=== PATIENT | female | born 1985 | race Caucasian/White ===

== ENCOUNTER 2024-03-11 17:02 | Inpatient (IN) ==
--- NOTE | 2024-03-11 18:33 | Emergency Department Note ---
Impression & Plan Chest pain, Hypertension, Sprain and strain of wrist ED Provider Note NAME: LATRICE WILLS AGE: 38 SEX: F : 1985 ARRIVES VIA: Ambulance INFORMANT: Patient, ED PROVIDER(S): Polo Diaz MD CHIEF COMPLAINT: Right wrist pain, shortness of breath HPI: This is a 38-year-old female presenting for right wrist pain. Patient notes that she tried to "karate chop a tree "4 days ago and has right wrist pain at this time. She notes she has untreated hep C at this time and has had generalized feelings of unwell for the past 2 weeks but she notes she felt she had may be the flu. She no shortness of breath, cough. She does smoke about 1 pack of cigarettes per day. She notes no nausea, vomiting. She notes she felt dizzy and passed out today while standing but did not actually pass out. She called 911 due to feeling unwell. No active chest pain at this time. ROS: See above HPI for pertinent positives & negatives. A total of 10 systems reviewed and were otherwise negative. VITALS: See Below PHYSICAL EXAMINATION: General: resting comfortably in no acute distress Head: Normocephalic and atraumatic Eyes: Normal inspection, extraocular muscles intact Ear, nose, throat: Normal external exam Neck: Normal range of motion Respiratory: Mild expiratory wheeze Cardiovascular: Regular rate/rhythm, no murmur GI: soft, nontender, no guarding or rebound Extremities: nontender, moves all extremities Neuro: The patient awake and alert, appropriately conversive, no focal deficits, symmetric faces Skin: Warm, dry, and intact MEDICAL DECISION MAKING: This is 38 female sent for right wrist pain/shortness of breath. Patient has 2 prior complaints including right wrist pain from trauma as well as shortness of breath she is wheezing currently at this time. Will do screening blood work, EKG, chest x-ray, troponin, right wrist x-ray. -ECG independently interpreted by me with normal sinus rhythm, rate of 86, normal axis, normal AR, normal QRS, prolonged QTc, no ST segment elevations consistent with STEMI criteria -Chest Xray independently interpreted by me showing no pneumothorax, focal opacity, or pleural effusions. -Wrist x-ray as independent interpreted by me showing no osseous fracture or dislocation -Patient's blood work is reviewed showing no leukocytosis, anemia of 11.5 -No electrolyte disturbances, there is transaminitis. Troponin is elevated at over 18. Patient viral panel negative at this time. -Patient mentioned that she has had chest pain and had some pain here. With his troponin elevation, will admit for further ACS rule out. Low concern for PE clinically without hypoxia, or pleuritic chest pain. Differential diagnosis: Wrist fracture, COPD, ACS, PE ER treatment provided: See below Diagnostics interpreted by me: ECG: EKG as above Cardiac Monitoring: An order was placed for continuous cardiac monitoring. The monitor shows a rate of 92 with sinus rhythm rhythm. Laboratory studies: As stated above and show below. Imaging studies: See below. Past Med/Surg History Problem List (Updated 03/12/24 @ 16:17 by Polo Diaz MD) Sprain and strain of wrist (Acute) Hypertension (Acute) Chest pain (Acute) Medical History Asthma GERD (gastroesophageal reflux disease) Hepatitis C Hypothyroidism Family History Other Family history non-contributory Social History Smoking Status: Current every day smoker Tobacco Type: Cigarettes Hx Alcohol Use: Yes Alcohol type: beer Hx Substance Use: Yes Last Used Substance: Days (ago) Preferred Language: Setswana Communication Ability: Effective Career And Guidance Counselor Required: No Beliefs That Will Affect Care: None Current Living Situation: Significant Other Current Living Situation Comment: lives with boyfriend and his family Other Information That Helps Us Care for You: No Feels Safe at Home: Yes Safety Concerns: Feels Safe At This Time Assistive Devices: Glasses Allergies Allergies Allergy/AdvReac Type Severity Reaction Status Date / Time sulfamethoxazole Allergy Mild YEAST Verified 03/11/24 22:08 [From Bactrim] INFECTION/ITCHING trimethoprim [From Bactrim] Allergy Mild YEAST Verified 03/11/24 22:08 INFECTION/ITCHING Home Meds Home Medications Medication Instructions Recorded Confirmed famotidine 20 mg tablet 20 mg PO DAILY 03/11/24 03/11/24 fluticasone propionate 230 2 puff inhalation BID 03/11/24 03/11/24 mcg-salmeterol 21 mcg/actuation HFA inhaler (Advair HFA) fluticasone propionate 50 2 spray intranasal DAILY 03/11/24 03/11/24 mcg/actuation nasal spray,suspension (Flonase Allergy Relief) iron,carbonyl 65 mg-vitamin C 125 1 tab PO BID 03/11/24 03/11/24 mg tablet,delayed release (Vitron-C) levothyroxine 100 mcg tablet 100 mcg PO QAM 03/11/24 03/11/24 montelukast 10 mg tablet 10 mg PO HS 03/11/24 03/11/24 omeprazole 40 mg capsule,delayed 40 mg PO QAM 03/11/24 03/11/24 release sumatriptan succinate 100 mg tablet 0 mg PO .COMPLEX 03/11/24 03/11/24 Results & Data (ED) Vital Signs Vital Signs - 24 hr 03/11/24 17:09 03/11/24 17:44 03/11/24 18:31 Temperature 36.8 C Temperature Source Temporal Artery Scan Pulse Rate 104 H 106 H Pulse Rate [Right Apical] 101 H Respiratory Rate 15 19 Respiratory Effort / Characteristics Non-Labored Spontaneous Respiratory Depth Normal Normal Respiratory Pattern Regular Blood Pressure 175/97 H Blood Pressure [Right Arm] 167/96 H Blood Pressure Mean 123 Blood Pressure Mean [Right Arm] 119 Blood Pressure Position [Right Arm] Semi-fowlers Pulse Oximetry 98 99 Oxygen Delivery Method Room Air Sepsis Recent Fever Within 48 Hours No Sepsis New/Unexplained Change in Mental Status N/A Sepsis Action Taken by Nursing No Action Required 03/11/24 20:00 03/11/24 20:53 03/11/24 21:31 Temperature Temperature Source Pulse Rate 97 H Pulse Rate [Right Apical] 100 H 88 Respiratory Rate 17 20 Respiratory Effort / Characteristics Respiratory Depth Respiratory Pattern Blood Pressure Blood Pressure [Right Arm] 133/110 H Blood Pressure Mean Blood Pressure Mean [Right Arm] 117 Blood Pressure Position [Right Arm] Pulse Oximetry 97 98 Oxygen Delivery Method Room Air Room Air Sepsis Recent Fever Within 48 Hours Sepsis New/Unexplained Change in Mental Status Sepsis Action Taken by Nursing Laboratory Data 03/12/24 05:53 03/12/24 05:53 Lab Results 03/11/24 03/11/24 Range/Units 18:40 19:10 WBC 5.83 (4.8-10.8) K/ul RBC 3.38 L (4.20-5.40) M/uL Hgb 11.5 L (12.0-16.0) g/dl Hct 33.8 L (37.0-47.0) % MCV 100.0 (80.0-100.0) fL MCH 34.0 (25.0-34.0) pg MCHC 34.0 (32.0-36.0) g/dL RDW Std Deviation 55.7 H (36.4-46.3) fL RDW Coeff of Fernando 15.2 H (11.5-14.5) % Plt Count 80 L (130-400) K/uL MPV 12.1 (9.4-12.4) fL Immature Gran % (Auto) 0.3 % Neut % (Auto) 60.3 % Lymph % (Auto) 28.8 % [place] % (Auto) 8.2 % Eos % (Auto) 1.7 % Baso % (Auto) 0.7 % Neut # (Auto) 3.51 (1.40-6.50) K/uL Lymph # (Auto) 1.68 (1.20-3.40) K/uL [place] # (Auto) 0.48 (0.11-0.59) K/uL Eos # (Auto) 0.10 (0.00-0.50) K/uL Baso # (Auto) 0.04 (0.00-0.20) K/uL Immature Gran # (Auto) 0.02 (0.01-0.20) K/uL Platelet Estimate Decreased L (Normal) Sodium 142 (136-145) mmol/L Potassium 3.4 L (3.5-5.1) mmol/L Chloride 107 (98-107) mmol/L Carbon Dioxide 28 (21-32) mmol/L Anion Gap 7 (3-11) BUN 8 (6-23) mg/dl Creatinine 0.79 (0.6-1.2) mg/dl Est Cr Clr Drug Dosing 109.5 ml/min Est GFR ( Amer) 110.8 ml/min Est GFR (Non-Af Amer) 95.6 ml/min BUN/Creatinine Ratio 10.1 (10-20) Glucose 87 (70-99(Fasting)) mg/dl Calcium 9.1 (8.6-10.3) mg/dl Total Bilirubin 2.1 H (0.2-1.0) mg/dl AST 233 H (13-39) U/L ALT 84 H (7-52) U/L Alkaline Phosphatase 127 H (34-104) U/L Troponin I High Sens 18.1 H (0-14) pg/ml Total Protein 7.4 (6.0-8.3) gm/dl Albumin 3.6 (3.4-5.0) gm/dl Globulin 3.8 (2.5-4.0) gm/dl Albumin/Globulin Ratio 0.9 (0.9-2) Adenovirus (PCR) Not Detected (NotDetected) B. pertussis DNA (PCR) Not Detected (NotDetected) B.parapertussis DNA PCR Not Detected (NotDetected) C. pneumoniae DNA (PCR) Not Detected (NotDetected) Coronavirus OC43 (PCR) Not Detected (NotDetected) Coronavirus HKU1 (PCR) Not Detected (NotDetected) Coronavirus 229E (PCR) Not Detected (NotDetected) SARS-CoV-2 (PCR) Not Detected (NotDetected) Coronavirus NL63 (PCR) Not Detected (NotDetected) Human Metapneumovir PCR Not Detected (NotDetected) Influenza Type A (PCR) Not Detected (NotDetected) Influenza Type B (PCR) Not Detected (NotDetected) M. pneumoniae (PCR) Not Detected (NotDetected) Parainfluenza 1 (PCR) Not Detected (NotDetected) Parainfluenza 2 (PCR) Not Detected (NotDetected) Parainfluenza 3 (PCR) Not Detected (NotDetected) Parainfluenza 4 (PCR) Not Detected (NotDetected) RSV (PCR) Not Detected (NotDetected) Entero/Rhino (PCR) Not Detected (NotDetected) Administered Medications Aspirin (Aspirin 81 Mg Ectab) 81 mg PO [facility] Stop: 04/11/24 09:14 Last Admin: 03/12/24 10:47 Dose: 81 mg Documented By: TMP Thiamine HCl 100 mg/ Syringe 10 mls @ 2 mls/min IV [facility] Stop: 04/11/24 08:59 Last Admin: 03/12/24 08:07 Dose: 2 mls/min Documented By: TMP Folic Acid 1 mg/ Syringe 10 mls @ 5 mls/min IV QAM MARCELA Stop: 04/11/24 08:59 Last Admin: 03/12/24 08:07 Dose: 5 mls/min Documented By: TMP Losartan Potassium (Losartan Potassium 25 Mg Tab) 25 mg PO QAM MARCELA Stop: 04/11/24 11:29 Last Admin: 03/12/24 12:06 Dose: 25 mg Documented By: TMP Nitroglycerin (Nitroglycerin Sl 0.4 Mg/Tab Tab) 0.4 mg SL Q5M PRN PRN Reason: Chest Pain Stop: 04/10/24 23:13 Last Admin: 03/12/24 08:44 Dose: 0.4 mg Documented By: Admin: 03/12/24 08:06 Dose: 0.4 mg Documented By: TMP Discontinued Medications Aspirin (Aspirin Chew 324 Mg) 324 mg PO NOW STA Stop: 03/11/24 20:45 Last Admin: 03/11/24 20:52 Dose: 324 mg Documented By: SKM Gabapentin (Gabapentin 600 Mg Tab) 1,200 mg PO NOW ONE Stop: 03/11/24 23:15 Last Admin: 03/12/24 00:03 Dose: 1,200 mg Documented By: MG Gabapentin (Gabapentin 600 Mg Tab) 600 mg PO Q6H MARCELA Stop: 03/12/24 12:01 Last Admin: 03/12/24 11:55 Dose: 600 mg Documented By: Admin: 03/12/24 05:13 Dose: 600 mg Documented By: MG Sodium Chloride (Nss) 500 mls @ 50 mls/hr IV .Q10H MARCELA Stop: 03/12/24 11:29 Last Infusion: 03/12/24 12:34 Dose: Infused Documented By: Admin: 03/12/24 02:17 Dose: 50 mls/hr Documented By: MG Multivitamins 10 ml/ Thiamine HCl 100 mg/ Folic Acid 1 mg/Sodium Chloride 1,011.2 mls @ 500 mls/hr IV .Q2H2M ONE Stop: 03/12/24 01:31 Last Infusion: 03/12/24 02:25 Dose: Infused Documented By: Admin: 03/12/24 00:04 Dose: 500 mls/hr Documented By: MG Magnesium Sulfate/Dextrose (Magnesium Sulfate / D5w) 1 gm in 100 mls @ 50 mls/hr IV Q2H MARCELA Stop: 03/12/24 12:44 Last Infusion: 03/12/24 13:54 Dose: Infused Documented By: Admin: 03/12/24 11:54 Dose: 50 mls/hr Documented By: Infusion: 03/12/24 11:10 Dose: Infused Documented By: Admin: 03/12/24 09:10 Dose: 50 mls/hr Documented By: MABEL Ioversol (Optiray 320 125ml) 125 ml IV ONCE ONE Stop: 03/12/24 01:36 Last Admin: 03/12/24 01:35 Dose: 118 ml Documented By: MANOJ Oxycodone HCl (Oxycodone Hcl Ir 5 Mg Tab (Immediate Release)) 5 mg PO NOW STA Stop: 03/11/24 23:20 Last Admin: 03/12/24 00:03 Dose: 5 mg Documented By: MG Potassium Chloride (Potassium Chloride Crtab 20 Meq Tabcr) 20 meq PO NOW STA Stop: 03/11/24 22:21 Last Admin: 03/12/24 00:02 Dose: 20 meq Documented By: MG Potassium Chloride (Potassium Chloride Crtab 20 Meq Tabcr) 40 meq PO ONE ONE Stop: 03/12/24 08:40 Last Admin: 03/12/24 09:10 Dose: 40 meq Documented By: MABEL Imaging Data Radiologist's Impression: Wrist X-Ray 03/11/24 18:17 XR wrist RT min 3V routine CLINICAL HISTORY: Tried to karate chop a tree, wrist ecchymosis/swelling. COMPARISON: None FINDINGS: Alignment of the right wrist is anatomic. There is no acute fracture. Carpal bones are intact. Distal right radius and ulna are intact. There is mild wrist soft tissue swelling. IMPRESSION: 1. No fracture or dislocation within the right wrist. 2. Right wrist soft tissue swelling. ACT 112: Negative or not required by law. Electronically signed by: Santana Lara M.D. 03/11/2024 6:46 PM Chest X-Ray 03/11/24 18:18 XR chest 1V portable CLINICAL HISTORY: Shortness of breath. COMPARISON STUDY: Chest radiograph July 06, 2021. FINDINGS: Lung volumes are normal. Lungs are clear. There is no pneumothorax or pleural effusion. Cardiac size is normal. Mediastinal contours are normal. There is no evidence for pulmonary edema. Several old right-sided rib fractures are incidentally noted. IMPRESSION: No acute cardiopulmonary findings. ACT 112: Negative or not required by law. Electronically signed by: Santana Lara M.D. 03/11/2024 6:46 PM Discharge Plan Visit Data Chief Complaint: Illness ED Provider: Polo Diaz Discharge Problem: Chest pain, Hypertension, Sprain and strain of wrist Patient Disposition: Admitted As Inpatient Discharge Instructions Interventions: ED Discharge Assessment Last Done: 03/11/24 22:28
--- NOTE | 2024-03-11 18:47 | XRay Report ---
XR wrist RT min 3V routine CLINICAL HISTORY: Tried to karate chop a tree, wrist ecchymosis/swelling. COMPARISON: None FINDINGS: Alignment of the right wrist is anatomic. There is no acute fracture. Carpal bones are int act. Distal right radius and ulna are intact. There is mild wrist soft tissue swelling. IMPRESSION: 1. No fracture or dislocation within the right wrist. 2. Right wrist soft tissue swelling. ACT 112: Negative or not required by law. Electronically signed by: Santana Lara M.D. 03/11/2024 6:46 PM
--- NOTE | 2024-03-11 18:48 | XRay Report ---
XR chest 1V portable CLINICAL HISTORY: Shortness of breath. COMPARISON STUDY: Chest radiograph July 06, 2021. FINDINGS: Lung volumes are normal. Lungs are clear. There is no pneumothorax or pleural effusion. Car diac size is normal. Mediastinal contours are normal. There is no evidence for pulmonary edema. Sever al old right-sided rib fractures are incidentally noted. IMPRESSION: No acute cardiopulmonary findings. ACT 112: Negative or not required by law. Electronically signed by: Santana Lara M.D. 03/11/2024 6:46 PM
[2024-03-11 19:15] LABS: Albumin Globulin Ratio 0.9 (0.9-2); Albumin Level 3.6 gm/dl (3.4-5.0); BUN Creatinine Ratio 10.1 (10-20); Bilirubin,Total 2.1 mg/dl (0.2-1.0); Calcium 9.1 mg/dl (8.6-10.3); Creatinine Clr Calc Pharmacy 109.5 ml/min; Est GFR (African American) 110.8 ml/min; Est GFR (Non-African American) 95.6 ml/min; Globulin 3.8 gm/dl (2.5-4.0); Potassium 3.4 mmol/L (3.5-5.1); Total Protein 7.4 gm/dl (6.0-8.3)
[2024-03-11 19:21] LABS: Troponin I High Sensitivity 18.1 pg/ml (0-14)
[2024-03-11 20:26] LABS: Adenovirus PCR Not Detected (NotDetected); Bordetella parapertussis PCR Not Detected (NotDetected); Bordetella pertussis PCR Not Detected (NotDetected); Chlamydia pneumoniae PCR Not Detected (NotDetected); Coronavirus 229E PCR Not Detected (NotDetected); Coronavirus CoV-2 (COVID19)PCR Not Detected (NotDetected); Coronavirus HKU1 PCR Not Detected (NotDetected); Coronavirus NL63 PCR Not Detected (NotDetected); Coronavirus OC43PCR Not Detected (NotDetected); Human Metapneumovirus PCR Not Detected (NotDetected); Influenza A PCR Not Detected (NotDetected); Influenza B PCR Not Detected (NotDetected); Mycoplasma pneumoniae PCR Not Detected (NotDetected); Parainfluenza Virus 1 PCR Not Detected (NotDetected); Parainfluenza Virus 2 PCR Not Detected (NotDetected); Parainfluenza Virus 3 PCR Not Detected (NotDetected); Parainfluenza Virus 4 PCR Not Detected (NotDetected); Respiratory Syncytial VirusPCR Not Detected (NotDetected); Rhinovirus/Enterovirus PCR Not Detected (NotDetected)
[2024-03-11] MEDS: ASPIRIN CHEW 324 MG PO STA (20:52)
[2024-03-11 21:04] LABS: Basophils # (auto) 0.04 K/uL (0.00-0.20); Basophils % (auto) 0.7 %; Eosinophils % (auto) 1.7 %; Hematocrit (blood only) 33.8 % (37.0-47.0); Hemoglobin 11.5 g/dl (12.0-16.0); Immature Granulocytes # (auto) 0.02 K/uL (0.01-0.20); Immature Granulocytes % (auto) 0.3 %; Lymphocytes # (auto) 1.68 K/uL (1.20-3.40); Lymphocytes % (auto) 28.8 %; Mean Platelet Volume 12.1 fL (9.4-12.4); Monocytes # (auto) 0.48 K/uL (0.11-0.59); Monocytes % (auto) 8.2 %; Neutrophils # (auto) 3.51 K/uL (1.40-6.50); Neutrophils % (auto) 60.3 %; Platelet Count 80 K/uL (130-400); Platelet Estimate Decreased (Normal); RDW Coefficient of Variation 15.2 % (11.5-14.5); RDW Standard Deviation 55.7 fL (36.4-46.3); Red Blood Count 3.38 M/uL (4.20-5.40); White Blood Count 5.83 K/ul (4.8-10.8)
[2024-03-11] MEDS ORDERED: LORazepam 1 MG in SYRINGE 0.5 ML IV PRN (23:14)
[2024-03-11] MEDS ORDERED: LORazepam 2 MG in SYRINGE 1 ML IV PRN (23:14)
[2024-03-11] MEDS ORDERED: Ativan IV Alcohol Withdrawal--Active Protocol IV PRN (23:14)
[2024-03-11] MEDS ORDERED: ONDANSETRON INJ 2 MG/ML 2 ML VIAL IV PRN (23:14)
[2024-03-11] MEDS ORDERED: LORazepam 3 MG in SYRINGE 1.5 ML IV PRN (23:14)
[2024-03-11] MEDS ORDERED: GABAPENTIN 1200MG ALCOHOL WITHDRAWAL LOAD PO STA (23:14)
--- NOTE | 2024-03-11 23:44 | History & Physical Report ---
Date of Service March 11, 2024 Assessment & Plan (1) Chest pain: Plan: 38-year-old female with past medical history significant for hypothyroidism, moderate persistent asthma, heart murmur, chronic hepatitis C, mouth,edentulous, GERD, recurrent headache, migraines, ongoing tobacco use and alcohol use, history of seizure presents with chest pains and shortness of breath. Patient states since last Sunday is having constant chest pain left-sided chest moderate in severity. No radiation. Also feeling short of breath. Patient's also had some right wrist pain after trying to chop a tree 4 days ago. Also having a lot of nausea and vomiting. Some dizziness. Vision is okay. No runny nose or sore throat. No cough. No abdominal pain. Normal bowel and bladder movements. Hemodynamics are okay. Chest pain EKG okay Initial troponin 18 and repeat is 21 Will follow serial cardiac enzymes and echo Consult cardiology in a.m. for further recommendations Shortness of breath Chest x-ray okay No obvious wheezing Saturating okay on room air d dimer elevated CTA chest No PE. History of hepatitis C Following with hepatology Elevated LFTs Somewhat chronic Outpatient labs in [facility] on 11/15/2022 shows AST 271, ALT 147, alkaline phos 91, total bilirubin 1.2 Possibly from hepatitis C and ongoing alcoholism Will follow repeat labs Will follow liver ultrasound Alcoholism Banana bag Alcohol withdrawal protocol with gabapentin and Ativan as needed IV thiamine IV folic acid Close monitor Tobacco abuse Needs counseling History of asthma Continue home inhalers Hypothyroidism On Synthroid Follow TSH GERD Omeprazole Migraines Pain control Thrombocytopenia Mostly from liver disease Seems somewhat chronic Needs follow-up DVT SCDs Disposition Med/telemetry Full code Admission and Anticipated Discharge Date Admission Date: March 11, 2024 History of Present Illness Chief Complaint: Chest pain and shortness of breath Primary Care Provider: GOLDIE Bobo 38-year-old female with past medical history significant for hypothyroidism, moderate persistent asthma, heart murmur, chronic hepatitis C, mouth,edentulous, GERD, recurrent headache, migraines, ongoing tobacco use and alcohol use, history of seizure presents with chest pains and shortness of breath. Patient states since last Sunday is having constant chest pain left-sided chest moderate in severity. No radiation. Also feeling short of breath. Patient's also had some right wrist pain after trying to chop a tree 4 days ago. Also having a lot of nausea and vomiting. Some dizziness. Vision is okay. No runny nose or sore throat. No cough. No abdominal pain. Normal bowel and bladder movements. Hemodynamics are okay. Past medical history. As mentioned above. Past surgical history. . Right shoulder arthroscopy. Social history. Smokes 1 pack a day for last 15 years. Alcohol drinks 6-12 beers a day. Smokes marijuana. 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 Family history. Mother had COPD. Diabetes. Hypertension. Paternal grandmother had cancer. Allergies Allergy/AdvReac Type Severity Reaction Status Date / Time sulfamethoxazole Allergy Mild YEAST Verified 03/11/24 22:08 [From Bactrim] INFECTION/ITCHING trimethoprim [From Bactrim] Allergy Mild YEAST Verified 03/11/24 22:08 INFECTION/ITCHING Home Medications Medication Instructions Recorded Confirmed Type famotidine 20 mg tablet 20 mg PO DAILY 03/11/24 03/11/24 History fluticasone propionate 230 2 puff inhalation BID 03/11/24 03/11/24 History mcg-salmeterol 21 mcg/actuation HFA inhaler (Advair HFA) fluticasone propionate 50 2 spray intranasal DAILY 03/11/24 03/11/24 History mcg/actuation nasal spray,suspension (Flonase Allergy Relief) iron,carbonyl 65 mg-vitamin C 125 1 tab PO BID 03/11/24 03/11/24 History mg tablet,delayed release (Vitron-C) levothyroxine 100 mcg tablet 100 mcg PO QAM 03/11/24 03/11/24 History montelukast 10 mg tablet 10 mg PO HS 03/11/24 03/11/24 History omeprazole 40 mg capsule,delayed 40 mg PO QAM 03/11/24 03/11/24 History release sumatriptan succinate 100 mg tablet 0 mg PO .COMPLEX 03/11/24 03/11/24 History Past Med/Surg History Problem List (Updated 03/11/24 @ 23:49 by Anastacio Pagan MD) Chest pain Medical History Asthma GERD (gastroesophageal reflux disease) Hepatitis C Hypothyroidism Family History Other Family history non-contributory Social History Smoking Status: Current every day smoker Tobacco Type: Cigarettes Hx Alcohol Use: Yes Alcohol type: beer Hx Substance Use: Yes Last Used Substance: Days (ago) Preferred Language: Swedish Communication Ability: Effective Senior Microstrategy Developer Required: No Beliefs That Will Affect Care: None Current Living Situation: Significant Other Current Living Situation Comment: lives with boyfriend and his family Other Information That Helps Us Care for You: No Feels Safe at Home: Yes Safety Concerns: Feels Safe At This Time Assistive Devices: None Review of Systems Review of Systems: All systems reviewed & are unremarkable except as noted in HPI & below Physical Exam Physical Exam: General- Not in distress Head- atraumatic Eyes- PERRL. ENT- no dentition seen Neck- supple, no JVD. Lungs- clear to auscultation no wheezing or crackles. Heart- regular rhythm; no murmur, no gallop. Abdomen- normal bowel sounds, soft, nontender, no distension Extremities- lower ext edema present Neuro- alert, oriented PERRL, no facial palsy; no dysarthria; moves extremities Results & Data Results & Data Vital Signs (Past 12 Hours) Vital Signs Temp Pulse Pulse Resp BP BP Pulse Ox 03/11/24 22:00 83 21 157/94 H 97 03/11/24 21:31 97 H 03/11/24 20:53 88 20 133/110 H 98 03/11/24 20:00 100 H 17 97 03/11/24 18:31 101 H 19 167/96 H 99 03/11/24 17:44 106 H 03/11/24 17:09 36.8 C 104 H 15 175/97 H 98 O2 Del Method 03/11/24 22:00 Room Air 03/11/24 21:31 03/11/24 20:53 Room Air 03/11/24 20:00 Room Air 03/11/24 18:31 Room Air 03/11/24 17:44 03/11/24 17:09 Diagnostic Findings Laboratory Results WBC 5.83 K/ul (4.8-10.8) 03/11/24 18:40 RBC 3.38 M/uL (4.20-5.40) L 03/11/24 18:40 Hgb 11.5 g/dl (12.0-16.0) L 03/11/24 18:40 Hct 33.8 % (37.0-47.0) L 03/11/24 18:40 MCV 100.0 fL (80.0-100.0) 03/11/24 18:40 MCH 34.0 pg (25.0-34.0) 03/11/24 18:40 MCHC 34.0 g/dL (32.0-36.0) 03/11/24 18:40 RDW Std Deviation 55.7 fL (36.4-46.3) H 03/11/24 18:40 RDW Coeff of Fernando 15.2 % (11.5-14.5) H 03/11/24 18:40 Plt Count 80 K/uL (130-400) L 03/11/24 18:40 MPV 12.1 fL (9.4-12.4) 03/11/24 18:40 Immature Gran % (Auto) 0.3 % 03/11/24 18:40 Neut % (Auto) 60.3 % 03/11/24 18:40 Lymph % (Auto) 28.8 % 03/11/24 18:40 Ashley % (Auto) 8.2 % 03/11/24 18:40 Eos % (Auto) 1.7 % 03/11/24 18:40 Baso % (Auto) 0.7 % 03/11/24 18:40 Neut # (Auto) 3.51 K/uL (1.40-6.50) 03/11/24 18:40 Lymph # (Auto) 1.68 K/uL (1.20-3.40) 03/11/24 18:40 Ashley # (Auto) 0.48 K/uL (0.11-0.59) 03/11/24 18:40 Eos # (Auto) 0.10 K/uL (0.00-0.50) 03/11/24 18:40 Baso # (Auto) 0.04 K/uL (0.00-0.20) 03/11/24 18:40 Immature Gran # (Auto) 0.02 K/uL (0.01-0.20) 03/11/24 18:40 Platelet Estimate Decreased (Normal) L 03/11/24 18:40 Sodium 142 mmol/L (136-145) 03/11/24 18:40 Potassium 3.4 mmol/L (3.5-5.1) L 03/11/24 18:40 Chloride 107 mmol/L (98-107) 03/11/24 18:40 Carbon Dioxide 28 mmol/L (21-32) 03/11/24 18:40 Anion Gap 7 (3-11) 03/11/24 18:40 BUN 8 mg/dl (6-23) 03/11/24 18:40 Creatinine 0.79 mg/dl (0.6-1.2) 03/11/24 18:40 Est Cr Clr Drug Dosing 109.5 ml/min 03/11/24 18:40 Est GFR ( Amer) 110.8 ml/min 03/11/24 18:40 Est GFR (Non-Af Amer) 95.6 ml/min 03/11/24 18:40 BUN/Creatinine Ratio 10.1 (10-20) 03/11/24 18:40 Glucose 87 mg/dl (70-99(Fasting)) 03/11/24 18:40 Calcium 9.1 mg/dl (8.6-10.3) 03/11/24 18:40 Total Bilirubin 2.1 mg/dl (0.2-1.0) H 03/11/24 18:40 AST 233 U/L (13-39) H 03/11/24 18:40 ALT 84 U/L (7-52) H 03/11/24 18:40 Alkaline Phosphatase 127 U/L (34-104) H 03/11/24 18:40 Troponin I High Sens 21.5 pg/ml (0-14) H 03/11/24 22:38 Total Protein 7.4 gm/dl (6.0-8.3) 03/11/24 18:40 Albumin 3.6 gm/dl (3.4-5.0) 03/11/24 18:40 Globulin 3.8 gm/dl (2.5-4.0) 03/11/24 18:40 Albumin/Globulin Ratio 0.9 (0.9-2) 03/11/24 18:40 Adenovirus (PCR) Not Detected (NotDetected) 03/11/24 19:10 B. pertussis DNA (PCR) Not Detected (NotDetected) 03/11/24 19:10 B.parapertussis DNA PCR Not Detected (NotDetected) 03/11/24 19:10 C. pneumoniae DNA (PCR) Not Detected (NotDetected) 03/11/24 19:10 Coronavirus OC43 (PCR) Not Detected (NotDetected) 03/11/24 19:10 Coronavirus HKU1 (PCR) Not Detected (NotDetected) 03/11/24 19:10 Coronavirus 229E (PCR) Not Detected (NotDetected) 03/11/24 19:10 SARS-CoV-2 (PCR) Not Detected (NotDetected) 03/11/24 19:10 Coronavirus NL63 (PCR) Not Detected (NotDetected) 03/11/24 19:10 Human Metapneumovir PCR Not Detected (NotDetected) 03/11/24 19:10 Influenza Type A (PCR) Not Detected (NotDetected) 03/11/24 19:10 Influenza Type B (PCR) Not Detected (NotDetected) 03/11/24 19:10 M. pneumoniae (PCR) Not Detected (NotDetected) 03/11/24 19:10 Parainfluenza 1 (PCR) Not Detected (NotDetected) 03/11/24 19:10 Parainfluenza 2 (PCR) Not Detected (NotDetected) 03/11/24 19:10 Parainfluenza 3 (PCR) Not Detected (NotDetected) 03/11/24 19:10 Parainfluenza 4 (PCR) Not Detected (NotDetected) 03/11/24 19:10 RSV (PCR) Not Detected (NotDetected) 03/11/24 19:10 Entero/Rhino (PCR) Not Detected (NotDetected) 03/11/24 19:10 Impressions Wrist X-Ray 03/11/24 18:17 XR wrist RT min 3V routine CLINICAL HISTORY: Tried to karate chop a tree, wrist ecchymosis/swelling. COMPARISON: None FINDINGS: Alignment of the right wrist is anatomic. There is no acute fracture. Carpal bones are intact. Distal right radius and ulna are intact. There is mild wrist soft tissue swelling. IMPRESSION: 1. No fracture or dislocation within the right wrist. 2. Right wrist soft tissue swelling. ACT 112: Negative or not required by law. Electronically signed by: Santana Lara M.D. 03/11/2024 6:46 PM Chest X-Ray 03/11/24 18:18 XR chest 1V portable CLINICAL HISTORY: Shortness of breath. COMPARISON STUDY: Chest radiograph July 06, 2021. FINDINGS: Lung volumes are normal. Lungs are clear. There is no pneumothorax or pleural effusion. Cardiac size is normal. Mediastinal contours are normal. There is no evidence for pulmonary edema. Several old right-sided rib fractures are incidentally noted. IMPRESSION: No acute cardiopulmonary findings. ACT 112: Negative or not required by law. Electronically signed by: Santana Lara M.D. 03/11/2024 6:46 PM ECG Additional Comments: ECG. Sinus rhythm with marked sinus arrhythmia at rate of 86. Possible left atrial enlargement. Nonspecific ST abnormality. QTc 493. Code Status & VTE Plan VTE Prophylaxis Plan VTE Prophylaxis will be ordered: Yes
[2024-03-11 23:53] LABS: D Dimer 1150 ug/L FEU (0-500)
[2024-03-12] MEDS: POTASSIUM CHLORIDE CRTAB 20 MEQ TABCR PO STA (00:02)
[2024-03-12] MEDS: oxyCODONE HCL IR 5 MG TAB (IMMEDIATE RELEASE) PO STA ×2 (00:03→22:56)
[2024-03-12] MEDS: GABAPENTIN 600 MG TAB PO ONE (00:03)
[2024-03-12] MEDS: MULTI-VITAMIN INFUSION 10 ML, THIAMINE HCL 100 MG, FOLIC ACID 1 MG in SODIUM CHLORIDE 0... IV ONE (00:04)
[2024-03-12] MEDS: OPTIRAY 320 125ml IV ONE (01:35)
[2024-03-12] MEDS: SODIUM CHLORIDE 0.9% 500 ML IV SCH (02:17)
--- NOTE | 2024-03-12 03:06 | CT Scan Report ---
Exam(s): CTA CHEST IV Amt: 118 ML OPTIRAY 320 EXAM: CT Angiography Chest With Intravenous Contrast CLINICAL HISTORY: Reason for exam: PE. TECHNIQUE: Axial computed tomographic angiography images of the chest with intravenous contrast. CTDI is 19.97 mGy and DLP is 679.28 mGy-cm. Automated exposure control was utilized for the study. A dose lowering technique was utilized adhering to the principles of ALARA. MIP reconstructed images were created and reviewed. COMPARISON: No relevant prior studies available. FINDINGS: Pulmonary arteries: No evidence of pulmonary embolism. Aorta: No acute findings. No thoracic aortic aneurysm. Lungs: Unremarkable. No mass. No consolidation. Pleural space: Unremarkable. No significant effusion. No pneumothorax. Heart: Unremarkable. No cardiomegaly. No significant pericardial effusion. No evidence of RV dysfunction. Bones/joints: No acute fracture. No dislocation. Soft tissues: Unremarkable. Lymph nodes: Unremarkable. No enlarged lymph nodes. IMPRESSION: No evidence of pulmonary embolism. Electronically signed by: Justice Whitley M.D. 03/12/24 03:05 AM
[2024-03-12] MEDS: GABAPENTIN 600 MG TAB PO SCH ×2 (05:13→19:19)
--- OUTSIDE RECORDS SUMMARY | 2024-03-12 06:17 | External Medical Summary | Summary of Care ---
Author Name Unknown Organization [facility] Address [address] [place] [address] Phone [phone] Care Team Providers Care Top Lifter Name Role Phone Justine Chowdhury Primary Care Provider Reason for Visit * Reason Comments eRx-Medication Refill Encounter Details Date Type Department Care Team (Late st Contact Info) Description 02/04/2024 Refill Family Practice [facility] [address] [place] [id number] Justine Chowdhury CRNP [address] [place] [id number] Allergies Active Allergy Reactions Criticality Noted Date Comments Sulfamethoxazole-Trimethoprim Rash 2020 Yeast infection Sulfamethoxazole Low 07/06/2021 Other reaction(s): YEAST INFECTION/ITCHING Trimethoprim Low 07/06/2021 Other reaction(s): YEAST INFECTION/ITCHING documented as of this encounter (statuses as of 02/05/2024) Medications Medication Sig Dispensed Refills Start Date End Date Status Fluticasone Propionate 50 MCG/ACT Nasal SuspensionIndica tions:Suspected COVID-19 virus infection,SOB (shortness of breath) Administer 2 Sprays into each nostril daily. 1 g 1 03/06/2021 Active Famotidine 20 MG Oral Tablet (Pepcid) Take by mouth 1 Tablet in the morning. 90 Tablet 3 01/02/2022 Active Spacer/Aero-Hold ing Chambers Device Use with inhaler. 1 Each 01/02/2022 Active Advair HFA 230-21 MCG/ACT Inhalation Aerosol (fluticasone-Golden meterol) Inhale 2 Puffs by mouth in the morning and 2 Puffs before bedtime. 12 g 11 11/15/2022 Active Montelukast Sodium 10 MG Oral Tablet (Singulair) Take 1 Tablet by mouth at bedtime. 90 Tablet 3 11/15/2022 Active Propranolol HCl 10 MG Oral Tablet (Inderal) Take 1 Tablet by mouth in the morning and 1 Tablet at noon and 1 Tablet before bedtime. Active Escitalopram Oxalate 10 MG Oral Tablet Take 1 Tablet by mouth in the morning. Active Folic Acid 1 MG Oral Tablet Take 1 Tablet by mouth in the morning. 90 Tablet 3 02/28/2023 Active Vitron-C 65-125 MG Oral Tablet (Iron-Vitamin C 65-125 mg per tab) Take 1 Tablet by mouth in the morning and 1 Tablet before bedtime. 60 Tablet 5 03/02/2023 Active SUMAtriptan Succinate 100 MG Oral TabletIndication s:Chronic migraine without aura without status migrainosus, not intractable Take 1 Tablet by mouth as needed for Migraine (Take 1 tablet at headache onset. Can repeat dose once in 1-2 hours as needed. No more than 2 doses per day or 3 doses per week.). 9 Tablet 08/15/2023 Active Levothyroxine Sodium 100 MCG Oral Tablet TAKE 1 TABLET BY MOUTH ONCE DAILY IN THE MORNING 30 MINUTES BEFORE BREAKFAST OR OTHER MEDICATIONS 90 Tablet 3 10/19/2023 Active Omeprazole 40 MG Oral Capsule Delayed Release (PriLOSEC) TAKE 1 CAPSULE BY MOUTH ONCE DAILY IN THE MORNING 1 HOUR BEFORE THE FIRST MEAL OF THE DAY 90 Capsule 02/05/2024 Active Omeprazole 40 MG Oral Capsule Delayed Release (PriLOSEC) Take 1 Capsule by mouth in the morning. 1 hour before the first meal of the day.. 90 Capsule 3 01/10/2023 4 Discontinued documented as of this encounter (statuses as of 02/05/2024) Active Problems Problem Noted Date Diagnosed Date Heart murmur 01/10/2023 Chronic migraine without aur a without status migrainosus, not intractable 11/15/2022 Moderate persistent asthma without complication 11/15/2022 Recurrent headache 07/08/2021 History of seizure 07/08/2021 Dehydration 07/08/2021 Gastro-esophageal reflux disease without esophag itis 05/09/2021 Gastroesophageal reflux dise ase with esophagitis without hemorrhage 01/21/2021 Chronic hepatitis C without hepatic coma 021 Hypothyroidism 01/06/2021 Tobacco use disorder 01/06/2021 Mouth, edentulous 01/06/2021 Pap smear for cervical cancer screening 01/07/20 documented as of this encounter (statuses as of 02/05/2024) Resolved Problems Problem Noted Date Diagnosed Date Resolved Date Syncope and collapse 07/08/2021 023 Thrush 01/21/2021 11/15/2022 Asthma with severity to be determined 01/06/2021 11/15/2022 Moderate persistent asthma with exacerbation 11/15/2022 documented as of this encounter (statuses as of 02/05/2024) Immunizations Name Administration Dates Next Due Pneumococcal Polysaccharide PPV23 (Pneumovax) Seasonal Influenza, PF, 6 M & above, IM , (FluLaval or Fluzone) 05/09/2021 TDAP (age 10 and older)(Boostrix) 01/21/2021 documented as of this encounter Social History Tobacco Use Types Packs/Day Years Used Date Smoking Tobacco: Every Day Cigarettes 1 15 Smokeless Tobacco: Never Alcohol Use Standard Drinks/Week Comments Yes 0 (1 standard drink = 0.6 oz pure alcohol) 6-12 beers a day, liquor the whole bottle if she drinks it AUDIT-C Answer Date Recorded Q1: How often do you have a drink containing alcohol? 4 or more times a week 01/06/2021 Q2: How many drinks containi ng alcohol do you have on a typical day when you are drinking? 1 or 2 Q3: How often do you have si x or more drinks on one occasion? Not asked 01/06/2021 Hunger Vital Sign Answer Date Recorded Within the past 12 months, y ou worried that your food would run out before you got the money to buy more. Never true 01/06/20 21 Within the past 12 months, t he food you bought just didn't last and you didn't have money to get more. Never true 01/05/2021 Sex and Gender Information Value Date Recorded Sex Assigned at Not on file Gender Identity Not on file Sexual Orientation Not on file Job Start Date Occupation Industry Not on file Not on file Not on file documented as of this encounter Miscellaneous Notes * Telephone Encounter - Lamont Hemphill PHARM Tech - 02/05/2024 10:20 AM EDT Received message from [facility] regarding patient needing an appointment. Call Placed, Unable to reach pt, as there was no answer and no VM available to leave message. Sent the patient a [employer] message to advise. Thank you, Lamont Hemphill Plug Cutting Machine Operator [facility] [address] [place] [address], [address] * Telephone Encounter - Lisa Davis [facility] - 02/05/2024 8:45 AM EDTSigned Prescriptions: Disp Refills Omeprazole 40 MG Oral Capsule Delayed Rele*90 Cap*0 Sig: TAKE 1 CAPSULE BY MOUTH ONCE DAILY IN THE MORNING 1 HOUR BEFORE THE FIRST MEAL OF THE DAY Authorizing Provider: JUSTINE CHOWDHURY Ordering User: LISA DAVIS * Telephone Encounter - Lisa Davis [facility] - 02/05/2024 8:45 AM EDT Please contact patient so that an appointment can be scheduled with her PRIMARY CARE provider. Refill authorized to hold patient over in the mean time. Last Visit: 01/10/2023 (in office), Visit date not found (telemedicine) Next Visit: Visit date not found Thank you, Lisa Davis, PharmD Clinical Pharmacist [facility] [phone] 02/05/2024, 8:45 AM documented in this encounter Plan of Treatment Health Maintenance Due Date Last Done Comments DISCUSS TOBACCO CESSATION (REFER TO SMARTSET #3292) 1986 Depression Screening 1998 Hepatitis B (1 of 3 - 19+ 3-dose series) 2005 HPV/Co-Test 2016 *SPIROMETRY ONCE FOR ASTHMA-ADULT 01/09/2021 Pneumococcal Vaccine: Pediatrics (0 to 5 Years) and At-Risk Patients (6 to 64 Years) (2 of 2 - PCV) 01/21/2022 01/21/2021 COVID-19 Vaccine (1 - season) 2023 Cervical Cancer Screening 02/18/2024 Pap Smear 02/18/2024 02/17/2021 TSH 02/22/2024 02/21/2023, 03/04/2023, 07/06/2021, Additional history exists Influenza Vaccine (FLU shot) (Season Ended) 2024 05/09/2021 DTaP,Tdap,and Td Vaccines (2 - Td or Tdap) 01/21/2031 01/21/2021 GARDASIL-HPV IMMUNIZATION SERIES Aged Out No longer eligible based on patient's age to complete this topic MENINGOCOCCAL (MENACTRA/MENVEO) Aged Out No longer eligible based on patient's age to complete this topic documented as of this encounter Medical Devices Not on filedocumented as of this encounter Care Teams Top Lifter Relationship Specialty Start Date End Date Justine Chowdhury CRNP [address] [place] [id number] PCP - General Nurse Practitioner 01/13/21 documented as of this encounter
[2024-03-12 06:34] LABS: Basophils # (auto) 0.04 K/uL (0.00-0.20); Basophils % (auto) 0.6 %; Eosinophils # (auto) 0.29 K/uL (0.00-0.50); Eosinophils % (auto) 4.2 %; Hemoglobin 12.4 g/dl (12.0-16.0); Immature Granulocytes # (auto) 0.01 K/uL (0.01-0.20); Immature Granulocytes % (auto) 0.1 %; Lymphocytes # (auto) 2.31 K/uL (1.20-3.40); Lymphocytes % (auto) 33.2 %; Mean Corpuscular Hemoglobin 33.6 pg (25.0-34.0); Mean Corpuscular Hgb Conc 34.4 g/dL (32.0-36.0); Mean Corpuscular Volume 97.6 fL (80.0-100.0); Mean Platelet Volume 11.8 fL (9.4-12.4); Monocytes # (auto) 0.47 K/uL (0.11-0.59); Monocytes % (auto) 6.8 %; Neutrophils # (auto) 3.83 K/uL (1.40-6.50); Neutrophils % (auto) 55.1 %; Platelet Count 82 K/uL (130-400); RDW Coefficient of Variation 14.9 % (11.5-14.5); RDW Standard Deviation 53.5 fL (36.4-46.3); Red Blood Count 3.69 M/uL (4.20-5.40); White Blood Count 6.95 K/ul (4.8-10.8)
[2024-03-12 07:03] LABS: Albumin Level 3.7 gm/dl (3.4-5.0); BUN Creatinine Ratio 10.1 (10-20); Bilirubin Direct 1.5 mg/dl (0-0.2); Bilirubin,Total 3.7 mg/dl (0.2-1.0); Calcium 9.3 mg/dl (8.6-10.3); Creatinine Clr Calc Pharmacy 131.6 ml/min; Est GFR (African American) 128.9 ml/min; Est GFR (Non-African American) 111.2 ml/min; Magnesium 1.4 mg/dl (1.7-2.4); Potassium 3.4 mmol/L (3.5-5.1); Total Protein 7.8 gm/dl (6.0-8.3); Troponin I High Sensitivity 17.7 pg/ml (0-14)
[2024-03-12 07:12] LABS: Folate (Folic Acid),Ser orPlas > 22.30 ng/ml (>5.38)
[2024-03-12 07:13] LABS: Vitamin B12 > 1500 pg/ml (180-914)
[2024-03-12] MEDS: NITROGLYCERIN SL 0.4 MG/TAB TAB SL PRN (08:06)
[2024-03-12] MEDS: FOLIC ACID 1 MG in SYRINGE 9.8 ML IV SCH (08:07)
[2024-03-12] MEDS: THIAMINE HCL 100 MG in SYRINGE 9 ML IV SCH (08:07)
--- NOTE | 2024-03-12 08:21 | Ultrasound Report ---
US liver CLINICAL HISTORY: elevated lft TECHNIQUE: Multiple real-time sonographic images of the right upper quadrant were obtained. Comparison: None available at the time of this dictation. FINDINGS: The liver is diffusely coarsened in echotexture, with a nodular contour. The liver appears shrunken i n appearance. These findings are suggestive of cirrhosis. Recanalized umbilical vein is seen. The ma in portal vein is within normal limits. No intrahepatic ductal dilatation is seen. Linear hyperecho ic foci with posterior shadowing are identified layering dependently within the gallbladder, which ar e consistent with gallstones. The gallbladder wall is not thickened measuring 1.9 to 2.5 mm. There is no pericholecystic fluid present. Sludge is seen. Kessler's sign cannot be assessed as the patient re ceived pain medication. The common duct measures 0.5 cm in diameter at the level of the hepatic arter y. The visualized portions of the pancreas appear normal. The right kidney shows normal echogenicity, cortical thickness and renal contour. The right kidney sh ows no evidence of hydronephrosis or mass. Perihepatic ascites is seen. Incidentally noted is a prominent appearing proximal IVC measuring 3.8 x 3.7 cm. IMPRESSION: Cirrhosis with trace ascites and recanalized umbilical vein. Otherwise no acute abnormalities. ACT 112: Negative or not required by law. Electronically signed by: Donn Hansen M.D. 03/12/2024 8:20 AM
[2024-03-12] MEDS: MAGNESIUM SULFATE / D5W 1 GM/100 ML BAG IV SCH (09:10)
[2024-03-12] MEDS: POTASSIUM CHLORIDE CRTAB 20 MEQ TABCR PO ONE (09:10)
--- NOTE | 2024-03-12 10:17 | Ultrasound Report ---
BILATERAL LOWER EXTREMITY VENOUS DOPPLER HISTORY: elevated D dimer R/O DVT COMPARISON STUDY: 01/15/2024 FINDINGS: There is normal compressibility, flow, and augmentation within the bilateral lower extremit y deep venous systems. IMPRESSION: No DVT within the right or left lower extremity. ACT 112: Negative or not required by law. Electronically signed by: Tim Crews M.D. 03/12/2024 10:16 AM
[2024-03-12] MEDS: ASPIRIN 81 MG ECTAB PO SCH (10:47)
[2024-03-12] MEDS: LOSARTAN POTASSIUM 25 MG TAB PO SCH (12:06)
--- NOTE | 2024-03-12 12:53 | Cardiology Consultation ---
Date of Consultation March 12, 2024 Assessment & Plan (1) Chest pain: (2) Hypertension: (3) Hypothyroidism: (4) Hepatitis C: Plan Patient admitted for atypical chest pain and dyspnea. Minimally elevated troponin, but flat (18-20s). Likely hypertensive induced. No acute EKG changes. Echo with normal LV systolic function, no wall motion abnormalities. Evidence of mild LVH, consistent with HTN. Previously treated with lisinopril many years ago. Recommend starting losartan 25 mg daily and titrate as needed. Will avoid MARIBEL due to patient with chronic cough, likely due to chronic tobacco abuse. D.Dimer was elevated, but CTA was negative for acute PE. Smoking cessation encouraged. Tx for alcohol withdrawal. Alcohol cessation encouraged. Defer treatment of hypothyroidism to hospitalist. At this time, would treat underlying hypertension. No further cardiac testing warranted. Further recommendations pending evaluation and discussion with Dr. Joaquin Case discussed with Dr. Joaquin I spent a total of 45 minutes on the date of service in preparation, delivery, and documentation of the care provided to this patient, excluding any time spent in the performance of separately billed services. Clara Lockhart PA-C Department of Cardiology, [facility] This chart was completed in part utilizing Speech Voice Recognition Software. Grammatical errors, random word insertions, pronoun errors, and incomplete sentences are an occasional consequence of this system due to software limitations, ambient noise, and hardware issues. Any formal questions or concerns about the content, text, or information contained within the body of this dictation should be directly addressed to the provider for clarification. Supervising Physician Co-Signing Physician Notes Attending attestation. I have personally performed a history and physical examination on the patient. I have reviewed the advance practitioner's documentation, and I agree with, and take responsibility for the plan of care. 38-year-old female admitted with atypical chest discomfort and minimally elevated high-sensitivity troponin. ECG without ischemic changes. Echocardiogram demonstrates borderline left ventricular hypertrophy with out regional wall motion abnormality. Prolonged QT interval noted. Recommend conservative medical management of hypertension. Losartan 25mg daily added. Alcohol and tobacco cessation recommended. Treatment of alcohol withdrawal as per internal medicine. Replace electrolytes as indicated. Avoid medications with the potential for QT prolongation. No further cardiac testing at this time. I spent a total of 30 minutes on the date of service in preparation, delivery, and documentation of the care provided to this patient, excluding any time spent in the performance of separately billed services. Juan M Joaquin DO, [facility] History of Present Illness Reason for Consultation: Chest pain Requesting Physician: Dr. Pagan Attending Physician: Dr. Joaquin History of Present Illness Patient is a 38 year old female who presented to [facility] with complaints of intermittent chest pain and SOB over the last few weeks. Patient is a poor historian and difficult to obtain history. Inpatient/outpatient records reviewed: 1. history of hypertension - previously on antihypertensive about 5 years ago but stopped 2. history of dyslipidemia - stopped medication about 5 years ago 3. Hepatitis C from IV drug use 15 years ago. Patient reports no recent use. 4. Cirrhosis with chronic alcohol intake Patient reports SOB and intermittent chest pain x several days. Chest pain described as sharp/stabbing pains left sided, epigastric, and right sided. Comes and goes randomly. No radiation. No associated symptoms. Upon arrival to ER, patient was found to be hypertensive. HS troponin minimally elevated but flat ranging 18-21. EKG demonstrated NSR with sinus arrhythmia, non specific ST abnormality. no acute findings. D. Dimer was elevated but CT scan was negative for PE. Since admission, patient had several "quick" bouts of chest pain. Nurse gave SL nitro which did not aid her symptoms. Caused migraine headache. At time of consult, patient resting in bed comfortable. Denies acute complaints other than headache. Allergies Allergy/AdvReac Type Severity Reaction Status Date / Time sulfamethoxazole Allergy Mild YEAST Verified 03/11/24 22:08 [From Bactrim] INFECTION/ITCHING trimethoprim [From Bactrim] Allergy Mild YEAST Verified 03/11/24 22:08 INFECTION/ITCHING Home Medications Medication Instructions Recorded Confirmed Type famotidine 20 mg tablet 20 mg PO DAILY 03/11/24 03/11/24 History fluticasone propionate 230 2 puff inhalation BID 03/11/24 03/11/24 History mcg-salmeterol 21 mcg/actuation HFA inhaler (Advair HFA) fluticasone propionate 50 2 spray intranasal DAILY 03/11/24 03/11/24 History mcg/actuation nasal spray,suspension (Flonase Allergy Relief) iron,carbonyl 65 mg-vitamin C 125 1 tab PO BID 03/11/24 03/11/24 History mg tablet,delayed release (Vitron-C) levothyroxine 100 mcg tablet 100 mcg PO QAM 03/11/24 03/11/24 History montelukast 10 mg tablet 10 mg PO HS 03/11/24 03/11/24 History omeprazole 40 mg capsule,delayed 40 mg PO QAM 03/11/24 03/11/24 History release sumatriptan succinate 100 mg tablet 0 mg PO .COMPLEX 03/11/24 03/11/24 History Patient History Medical History Asthma GERD (gastroesophageal reflux disease) Hepatitis C Hypothyroidism Family History Other Family history non-contributory Social History Smoking Status: Current every day smoker Tobacco Type: Cigarettes Hx Alcohol Use: Yes Alcohol type: beer Hx Substance Use: Yes Last Used Substance: Days (ago) Preferred Language: Serbian Communication Ability: Effective 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: No Beliefs That Will Affect Care: None Current Living Situation: Significant Other Current Living Situation Comment: lives with boyfriend and his family Other Information That Helps Us Care for You: No Feels Safe at Home: Yes Safety Concerns: Feels Safe At This Time Assistive Devices: Glasses Review of Systems Review of Systems: All systems reviewed & are unremarkable except as noted in HPI & below Physical Exam Constitutional: WD/WN, vitals as above + disheveled; no acute distress Neck: normal visual inspection Respiratory: normal respiratory effort; no labored breathing Auscultation: + diminished lung sounds and + wheezes Cardiovascular: Rate/Rhythm: regular rate and regular rhythm Heart Sounds: + murmur (II/ systolic murmur throughout precordium) Vessels: no JVD Extremities: no edema Gastrointestinal (Abdomen): normal bowel sounds, soft, nontender, no hepatosplenomegaly Psychiatric: Mood: + irritable mood Results & Data Vital Signs (Past 12 Hours) Vital Signs Temp Pulse Pulse Pulse Resp BP BP 03/12/24 12:23 37.0 C 95 H 18 146/81 H 03/12/24 08:05 36.7 C 86 18 168/75 H 03/12/24 07:45 03/12/24 07:18 92 H 03/12/24 02:29 36.5 C 69 20 142/83 H Pulse Ox O2 Del Method 03/12/24 12:23 97 Room Air 03/12/24 08:05 97 Room Air 03/12/24 07:45 Room Air 03/12/24 07:18 03/12/24 02:29 99 Room Air Laboratory Results Cardiac Enzymes 03/11/24 03/11/24 03/12/24 Range/Units 18:40 22:38 05:53 AST 233 H 212 H (13-39) U/L Troponin I High Sens 18.1 H 21.5 H 17.7 H (0-14) pg/ml 03/12/24 Range/Units 10:54 AST (13-39) U/L Troponin I High Sens 16.5 H (0-14) pg/ml CBC 03/11/24 03/12/24 Range/Units 18:40 05:53 WBC 5.83 6.95 (4.8-10.8) K/ul RBC 3.38 L 3.69 L (4.20-5.40) M/uL Hgb 11.5 L 12.4 (12.0-16.0) g/dl Hct 33.8 L 36.0 L (37.0-47.0) % Plt Count 80 L 82 L (130-400) K/uL Neut # (Auto) 3.51 3.83 (1.40-6.50) K/uL Lymph # (Auto) 1.68 2.31 (1.20-3.40) K/uL Beaver # (Auto) 0.48 0.47 (0.11-0.59) K/uL Eos # (Auto) 0.10 0.29 (0.00-0.50) K/uL Baso # (Auto) 0.04 0.04 (0.00-0.20) K/uL Comprehensive Metabolic Panel 03/11/24 03/12/24 Range/Units 18:40 05:53 Sodium 142 139 (136-145) mmol/L Potassium 3.4 L 3.4 L (3.5-5.1) mmol/L Chloride 107 104 (98-107) mmol/L Carbon Dioxide 28 28 (21-32) mmol/L BUN 8 7 (6-23) mg/dl Creatinine 0.79 0.69 (0.6-1.2) mg/dl Glucose 87 87 (70-99(Fasting)) mg/dl Calcium 9.1 9.3 (8.6-10.3) mg/dl Direct Bilirubin 1.5 H (0-0.2) mg/dl AST 233 H 212 H (13-39) U/L ALT 84 H 83 H (7-52) U/L Alkaline Phosphatase 127 H 121 H (34-104) U/L Total Protein 7.4 7.8 (6.0-8.3) gm/dl Albumin 3.6 3.7 (3.4-5.0) gm/dl Intake and Output 03/11/24 03/12/24 03/12/24 22:59 06:59 14:59 Intake Total 1011.2 / 1011.2 600 / 600 Balance 1011.2 / 1011.2 600 / 600 Intake: IV 1011.2 / 1011.2 600 / 600 Magnesium Sulfate / D5w 1 gm In 100 / 100 100 ml @ 50 mls/hr IV Q2H [facility] Rx#:[id number] Multi-Vitamin Infusion 10 ml 1011.2 / 1011.2 Thiamine HCl 100 mg Folic Acid 1 mg In Sodium Chloride 0.9% 1, 000 ml @ 500 mls/hr IV .Q2H2M [facility] Rx#:[id number] Sodium Chloride 0.9% 500 ml @ 500 / 500 50 mls/hr IV .Q10H [facility] Rx#: [id number] Other: Other Intake Source npo Weight 88.9 kg 83.9 kg Weight Measurement Method Built in Bedscale Standing Scale Diagnostic Findings Telemetry reviewed: NSR 90-110 bmp, Occ PVC's. EKG reviewed: NSR with sinus arrhythmia, non specific ST wave abnormality. No acute ischemic changes Echo report reviewed: Normal LVEF at 60-65% No wall motion abnormalities Mild Concentric LVH Mild TR No pulm hypertension Chest X-Ray 03/11/24 18:18 XR chest 1V portable IMPRESSION: No acute cardiopulmonary findings. Electronically signed by: Santana Lara M.D. 03/11/2024 6:46 PM Liver Ultrasound 03/11/24 23:14 IMPRESSION: Cirrhosis with trace ascites and recanalized umbilical vein. Otherwise no acute abnormalities. Chest CTA 03/11/24 23:57 IMPRESSION: No evidence of pulmonary embolism. Venous Doppler Study 03/12/24 08:42 IMPRESSION: No DVT within the right or left lower extremity. Medications Administered Current Inpatient Medications Aspirin (Aspirin 81 Mg Ectab) [facility] Stop: 04/11/24 09:14 Last Admin: 03/12/24 10:47 Dose: 81 mg Gabapentin (Gabapentin 600 Mg Tab) 600 mg PO Q8H [facility] Stop: 03/13/24 12:01 Gabapentin (Gabapentin 600 Mg Tab) 600 mg PO Q12H [facility] Stop: 03/14/24 12:01 Gabapentin (Gabapentin 600 Mg Tab) 600 mg PO Q24H [facility] Stop: 03/15/24 09:46 Thiamine HCl 100 mg/ Syringe 10 mls @ 2 mls/[facility] [place] Stop: 04/11/24 08:59 Last Admin: 03/12/24 08:07 Dose: 2 mls/min Folic Acid 1 mg/ Syringe 10 mls @ 5 mls/[facility] [place] Stop: 04/11/24 08:59 Last Admin: 03/12/24 08:07 Dose: 5 mls/min Lorazepam 1 mg/ Syringe 1 mls @ 2 mls/min IV UD PRN; Protocol PRN Reason: EtOH Withdrawal AWSS Score 6,7 Stop: 04/10/24 23:13 Lorazepam 2 mg/ Syringe 2 mls @ 2 mls/min IV UD PRN; Protocol PRN Reason: EtOH Withdrawal AWSS Score 8,9 Stop: 04/10/24 23:13 Lorazepam 3 mg/ Syringe 3 mls @ 2 mls/min IV ONCE PRN; Protocol PRN Reason: EtOH Withdrawal AWSS Score 10+ Losartan Potassium (Losartan Potassium 25 Mg Tab) 25 mg PO [facility] Stop: 04/11/24 11:29 Last Admin: 03/12/24 12:06 Dose: 25 mg Nitroglycerin (Nitroglycerin Sl 0.4 Mg/Tab Tab) 0.4 mg SL Q5M PRN PRN Reason: Chest Pain Stop: 04/10/24 23:13 Last Admin: 03/12/24 08:44 Dose: 0.4 mg Ondansetron HCl (Ondansetron Inj 2 Mg/Ml 2 Ml Vial) 4 mg IV Q6H PRN PRN Reason: Nausea Stop: 04/10/24 23:13 (1) Chest pain Chest pain type: other chest pain Qualified Code(s): R07.89 - Other chest pain
--- NOTE | 2024-03-12 16:36 | Hospitalist Progress Note ---
Date of Service March 12, 2024 Assessment & Plan (1) Chest pain: Plan: 38-year-old female with past medical history significant for hypothyroidism, moderate persistent asthma, heart murmur, chronic hepatitis C, mouth,edentulous, GERD, recurrent headache, migraines, ongoing tobacco use and alcohol use, history of seizure presents with chest pains and shortness of breath. Patient states since last Sunday is having constant chest pain left-sided chest modera te in severity. No radiation. Also feeling short of breath. Patient's also had some right wrist pain after trying to chop a tree 4 days ago. Also having a lot of nausea and vomiting. Some dizziness. Vision is okay. No runny nose or sore throat. No cough. No abdominal pain. Normal bowel and bladder movements. Hemodynamics are okay. Chest pain Likely due to hypertension Mild troponin elevation likely demand ischemia --ECHO: EF 60 to 65%. Borderline concentric LVH. Left ventricular wall motion normal. Mild tricuspid regurgitation. Doppler findings do not suggest pulmonary hypertension. Started on losartan Monitor and adjust antihypertensives as needed Appreciate cardiology input Elevated D-dimer --CTA:No evidence of pulmonary embolism. --Venous Doppler:No DVT within the right or left lower extremity. Alcohol use disorder Received banana bag On gabapentin protocol Continue thiamine, folic acid Counseled to quit alcohol use Hypokalemia Hypomagnesemia Monitor and replete electrolytes as needed Chronic transaminitis History of hepatitis C --Liver USD:Cirrhosis with trace ascites and recanalized umbilical vein. Otherwise no acute abnormalities. 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 History of asthma Continue home inhalers Hypothyroidism Continue levothyroxine Check thyroid function test GERD Continue PPI Migraines Pain control Thrombocytopenia Mostly from liver disease Monitor CBC DVT SCDs Re: thrombocytopenia CODE STATUS Full code Admission and Anticipated Discharge Date Admission Date: March 11, 2024 Subjective Patient is seen and examined at bedside Reports nausea, headache today Also reports chronic right upper quadrant abdominal pain which she attributes to hepatitis C Family at bedside Chest pain resolved with nitroglycerin Discussed with cardiology today No other complaints Review of Systems Review of Systems: All systems reviewed & are unremarkable except as noted in Subjective Physical Exam Physical Exam: Physical Exam: Vitals signs as noted above General Appearance:Moderately built and nourished, no apparent distress Head: normocephalic, Atraumatic Eyes: normal inspection, EOMI Neck: supple, Trachea midline Respiratory/Chest: Decreased breath sounds, CTA, No accessory muscle use Cardiovascular: S1, S2, + murmur Abdomen/GI:Soft, RUQ tender, Bowel sounds present Extremities/Musculoskeletal:normal inspection, Trace edema Neurologic/Psych:AAOX3, grossly no focal neurological deficits Skin: normal color, warm Results & Data Results & Data Vital Signs (Past 12 Hours) Vital Signs Temp Pulse Pulse Resp BP BP Pulse Ox 03/12/24 16:05 36.8 C 55 L 18 143/71 H 95 03/12/24 15:06 76 03/12/24 12:23 37.0 C 95 H 18 146/81 H 97 03/12/24 08:05 36.7 C 86 18 168/75 H 97 03/12/24 07:45 03/12/24 07:18 92 H O2 Del Method 03/12/24 16:05 Room Air 03/12/24 15:06 03/12/24 12:23 Room Air 03/12/24 08:05 Room Air 03/12/24 07:45 Room Air 03/12/24 07:18 Laboratory Results Short CBC 03/11/24 03/12/24 Range/Units 18:40 05:53 WBC 5.83 6.95 (4.8-10.8) K/ul Hgb 11.5 L 12.4 (12.0-16.0) g/dl Hct 33.8 L 36.0 L (37.0-47.0) % Plt Count 80 L 82 L (130-400) K/uL BMP 03/11/24 03/12/24 18:40 05:53 Sodium 142 139 Potassium 3.4 L 3.4 L Chloride 107 104 Carbon Dioxide 28 28 BUN 8 7 Creatinine 0.79 0.69 Glucose 87 87 Calcium 9.1 9.3 Liver Function 03/11/24 03/12/24 Range/Units 18:40 05:53 Total Bilirubin 2.1 H 3.7 H D (0.2-1.0) mg/dl Direct Bilirubin 1.5 H (0-0.2) mg/dl AST 233 H 212 H (13-39) U/L ALT 84 H 83 H (7-52) U/L Alkaline Phosphatase 127 H 121 H (34-104) U/L Albumin 3.6 3.7 (3.4-5.0) gm/dl
[2024-03-12] MEDS: IBUPROFEN 200 MG TAB PO ONE (19:19)
--- NOTE | 2024-03-12 19:40 | Electrocardiogram Report ---
Test Reason : Blood Pressure : / mmHG Vent. Rate : 086 BPM Atrial Rate : 096 BPM P-R Int : 164 ms QRS Dur : 086 ms QT Int : 412 ms P-R-T Axes : 064 038 045 degrees QTc Int : 493 ms Sinus rhythm with marked sinus arrhythmia Possible Left atrial enlargement Borderline ECG When compared with ECG of 06-JUL-2021 16:35, No significant change was found Confirmed by León Garcia ([id number]) on 03/12/2024 7:40:25 PM Referred By: REFERRED SELF Confirmed By:León Garcia
--- NOTE | 2024-03-12 20:02 | Electrocardiogram Report ---
Test Reason : Blood Pressure : / mmHG Vent. Rate : 068 BPM Atrial Rate : 068 BPM P-R Int : 156 ms QRS Dur : 088 ms QT Int : 440 ms P-R-T Axes : 045 027 035 degrees QTc Int : 468 ms Normal sinus rhythm Normal ECG When compared with ECG of 11-MAR-2024 18:31, (unconfirmed) Atrial tachycardia is no longer Present Confirmed by León Garcia ([id number]) on 03/12/2024 8:02:32 PM Referred By: REFERRED SELF Confirmed By:León Garcia
[2024-03-12] MEDS ORDERED: oxyCODONE HCL IR 5 MG TAB (IMMEDIATE RELEASE) PO PRN (21:29)
[2024-03-13 02:57] VITALS: RESP 16
[2024-03-13 07:20] LABS: Hematocrit (blood only) 33.6 % (37.0-47.0); Hemoglobin 11.7 g/dl (12.0-16.0); Mean Corpuscular Hemoglobin 33.9 pg (25.0-34.0); Mean Corpuscular Hgb Conc 34.8 g/dL (32.0-36.0); Mean Corpuscular Volume 97.4 fL (80.0-100.0); Mean Platelet Volume 11.5 fL (9.4-12.4); Platelet Count 73 K/uL (130-400); RDW Coefficient of Variation 14.9 % (11.5-14.5); RDW Standard Deviation 53.4 fL (36.4-46.3); Red Blood Count 3.45 M/uL (4.20-5.40); White Blood Count 6.54 K/ul (4.8-10.8)
[2024-03-13 07:39] LABS: Albumin Globulin Ratio 0.9 (0.9-2); Albumin Level 3.2 gm/dl (3.4-5.0); BUN Creatinine Ratio 15.2 (10-20); Bilirubin,Total 2.6 mg/dl (0.2-1.0); Calcium 8.8 mg/dl (8.6-10.3); Chol HDL Ratio 2.9 (0-5); Creatinine Clr Calc Pharmacy 137.7 ml/min; Est GFR (African American) 130.8 ml/min; Est GFR (Non-African American) 112.9 ml/min; Globulin 3.5 gm/dl (2.5-4.0); Magnesium 1.6 mg/dl (1.7-2.4); Potassium 3.7 mmol/L (3.5-5.1); Total Protein 6.7 gm/dl (6.0-8.3)
[2024-03-13 07:53] LABS: Thyroid Stimulating Hormone 6.728 uIu/ml (0.300-4.500)
--- NOTE | 2024-03-13 08:23 | Electrocardiogram Report ---
Test Reason : Blood Pressure : / mmHG Vent. Rate : 068 BPM Atrial Rate : 068 BPM P-R Int : 156 ms QRS Dur : 094 ms QT Int : 466 ms P-R-T Axes : 052 020 036 degrees QTc Int : 495 ms Normal sinus rhythm with sinus arrhythmia Normal ECG When compared with ECG of 12-MAR-2024 05:09, No significant change was found Confirmed by Jose A Haji ([id number]) on 03/13/2024 8:23:00 AM Referred By: REFERRED SELF Confirmed By:Jose A Haji
[2024-03-13 08:28] LABS: T4 Free Thyroxine 0.76 ng/dl (0.61-1.60)
[2024-03-13] MEDS: MAGNESIUM CHLORIDE W/CALCIUM 64MG DELAYED REL TAB PO SCH (10:22)
[2024-03-13] MEDS: MAGNESIUM SULFATE / D5W 1 GM/100 ML BAG IV ONE (10:22)
[2024-03-13 11:38] VITALS: TEMP 98.8; O2SAT 96
--- NOTE | 2024-03-13 11:39 | Electrocardiogram Report ---
Test Reason : Blood Pressure : / mmHG Vent. Rate : 066 BPM Atrial Rate : 066 BPM P-R Int : 150 ms QRS Dur : 096 ms QT Int : 464 ms P-R-T Axes : 043 023 045 degrees QTc Int : 486 ms Sinus rhythm with Premature atrial complexes with Aberrant conduction Abnormal ECG When compared with ECG of 12-MAR-2024 21:40, Premature atrial complexes with aberrancy now present Confirmed by Jose A Haji ([id number]) on 03/13/2024 11:38:56 AM Referred By: REFERRED SELF Confirmed By:Jose A Haji
[2024-03-13] MEDS: FLUTICASONE/VILANTEROL 200/25MCG 14 PUFFS/INHALER INH SCH (11:55)
[2024-03-13] MEDS: FAMOTIDINE 20 MG TAB PO SCH (11:55)
[2024-03-13] MEDS: PANTOprazole 40 MG TAB PO SCH (11:56)
[2024-03-13] MEDS: LEVOTHYROXINE SODIUM 100 MCG TABLET PO SCH (11:56)
--- NOTE | 2024-03-13 15:12 | Hospitalist Progress Note ---
Date of Service March 13, 2024 Assessment & Plan (1) Chest pain: Plan: 38-year-old female with past medical history significant for hypothyroidism, moderate persistent asthma, heart murmur, chronic hepatitis C, mouth,edentulous, GERD, recurrent headache, migraines, ongoing tobacco use and alcohol use, history of seizure presents with chest pains and shortness of breath. Patient states since last Sunday is having constant chest pain left-sided chest modera te in severity. No radiation. Also feeling short of breath. Patient's also had some right wrist pain after trying to chop a tree 4 days ago. Also having a lot of nausea and vomiting. Some dizziness. Vision is okay. No runny nose or sore throat. No cough. No abdominal pain. Normal bowel and bladder movements. Hemodynamics are okay. Chest pain Likely due to hypertension Mild troponin elevation likely demand ischemia --ECHO: EF 60 to 65%. Borderline concentric LVH. Left ventricular wall motion normal. Mild tricuspid regurgitation. Doppler findings do not suggest pulmonary hypertension. Continue losartan Blood pressure better Appreciate cardiology input Discussed with cardiology today--no further testing needed while hospitalized Plan to discharge home today Elevated D-dimer --CTA:No evidence of pulmonary embolism. --Venous Doppler:No DVT within the right or left lower extremity. 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 Otherwise no acute abnormalities. 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 History of asthma Continue home inhalers Hypothyroidism Mildly elevated TSH, normal free T4 Continue levothyroxine GERD Continue PPI Migraines Pain control Thrombocytopenia Mostly from liver disease Monitor CBC DVT SCDs Re: thrombocytopenia CODE STATUS Full code Disposition Home Admission and Anticipated Discharge Date Admission Date: March 11, 2024 Subjective Patient is seen and examined at bedside States having transient chest pain this morning Also reports headache today Has chronic abdominal pain which she prefers to follow-up with GI as outpatient No other complaints today Blood pressure better today Review of Systems Review of Systems: All systems reviewed & are unremarkable except as noted in Subjective Physical Exam Physical Exam: Physical Exam: Vitals signs as noted above General Appearance:Moderately built and nourished, no apparent distress Head: normocephalic, Atraumatic Eyes: normal inspection, EOMI Neck: supple, Trachea midline Respiratory/Chest: Decreased breath sounds, CTA, No accessory muscle use Cardiovascular: S1, S2, + murmur Abdomen/GI:Soft, RUQ tender (Chronic), Bowel sounds present Extremities/Musculoskeletal:normal inspection, Trace edema Neurologic/Psych:AAOX3, grossly no focal neurological deficits Skin: normal color, warm Results & Data Results & Data Vital Signs (Past 12 Hours) Vital Signs Temp Pulse Pulse Resp BP Pulse Ox O2 Del Method 03/13/24 14:08 77 03/13/24 11:38 37.1 C 67 16 133/77 96 Room Air 03/13/24 09:15 Room Air 03/13/24 08:00 35.8 C L 66 16 131/70 97 Room Air 03/13/24 07:04 72 Laboratory Results Short CBC 03/13/24 Range/Units 06:44 WBC 6.54 (4.8-10.8) K/ul Hgb 11.7 L (12.0-16.0) g/dl Hct 33.6 L (37.0-47.0) % Plt Count 73 L (130-400) K/uL BMP 03/13/24 06:44 Sodium 138 Potassium 3.7 Chloride 106 Carbon Dioxide 27 BUN 10 Creatinine 0.66 Glucose 90 Calcium 8.8 Liver Function 03/13/24 Range/Units 06:44 Total Bilirubin 2.6 H (0.2-1.0) mg/dl AST 137 H (13-39) U/L ALT 62 H (7-52) U/L Alkaline Phosphatase 108 H (34-104) U/L Albumin 3.2 L (3.4-5.0) gm/dl
[2024-03-13 15:33] VITALS: BP 168/75; PULSE 69
--- NOTE | 2024-03-13 15:33 | Discharge Summary ---
Date of Service March 13, 2024 Admission HPI Per Admitting Provider 38-year-old female with past medical history significant for hypothyroidism, moderate persistent asthma, heart murmur, chronic hepatitis C, mouth,edentulous, GERD, recurrent headache, migraines, ongoing tobacco use and alcohol use, history of seizure presents with chest pains and shortness of breath. Patient states since last Sunday is having constant chest pain left-sided chest moderate in severity. No radiation. Also feeling short of breath. Patient's also had some right wrist pain after trying to chop a tree 4 days ago. Also having a lot of nausea and vomiting. Some dizziness. Vision is okay. No runny nose or sore throat. No cough. No abdominal pain. Normal bowel and bladder movements. Hemodynamics are okay. Past medical history. As mentioned above. Past surgical history. . Right shoulder arthroscopy. Social history. Smokes 1 pack a day for last 15 years. Alcohol drinks 6-12 beers a day. Smokes marijuana. 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 Family history. Mother had COPD. Diabetes. Hypertension. Paternal grandmother had cancer. Admission Exam Per Admitting Provider General- Not in distress Head- atraumatic Eyes- PERRL. ENT- no dentition seen Neck- supple, no JVD. Lungs- clear to auscultation no wheezing or crackles. Heart- regular rhythm; no murmur, no gallop. Abdomen- normal bowel sounds, soft, nontender, no distension Extremities- lower ext edema present Neuro- alert, oriented PERRL, no facial palsy; no dysarthria; moves extremities Principal Diagnosis Atypical chest pain Hypertension Alcohol use disorder Hypokalemia Hypomagnesemia Chronic transaminitis Discharge Data Allergies Allergy/AdvReac Type Severity Reaction Status Date / Time sulfamethoxazole Allergy Mild YEAST Verified 03/11/24 22:08 [From Bactrim] INFECTION/ITCHING trimethoprim [From Bactrim] Allergy Mild YEAST Verified 03/11/24 22:08 INFECTION/ITCHING Consultations 03/11/24 20:45 ED Decision to Admit Stat 03/12/24 08:00 Consult Cardiology Routine Procedures Performed Laboratory Results WBC 6.54 K/ul (4.8-10.8) 03/13/24 06:44 RBC 3.45 M/uL (4.20-5.40) L 03/13/24 06:44 Hgb 11.7 g/dl (12.0-16.0) L 03/13/24 06:44 Hct 33.6 % (37.0-47.0) L 03/13/24 06:44 MCV 97.4 fL (80.0-100.0) 03/13/24 06:44 MCH 33.9 pg (25.0-34.0) 03/13/24 06:44 MCHC 34.8 g/dL (32.0-36.0) 03/13/24 06:44 RDW Std Deviation 53.4 fL (36.4-46.3) H 03/13/24 06:44 RDW Coeff of Fernando 14.9 % (11.5-14.5) H 03/13/24 06:44 Plt Count 73 K/uL (130-400) L 03/13/24 06:44 MPV 11.5 fL (9.4-12.4) 03/13/24 06:44 Immature Gran % (Auto) 0.1 % 03/12/24 05:53 Neut % (Auto) 55.1 % 03/12/24 05:53 Lymph % (Auto) 33.2 % 03/12/24 05:53 [place] % (Auto) 6.8 % 03/12/24 05:53 Eos % (Auto) 4.2 % 03/12/24 05:53 Baso % (Auto) 0.6 % 03/12/24 05:53 Neut # (Auto) 3.83 K/uL (1.40-6.50) 03/12/24 05:53 Lymph # (Auto) 2.31 K/uL (1.20-3.40) 03/12/24 05:53 [place] # (Auto) 0.47 K/uL (0.11-0.59) 03/12/24 05:53 Eos # (Auto) 0.29 K/uL (0.00-0.50) 03/12/24 05:53 Baso # (Auto) 0.04 K/uL (0.00-0.20) 03/12/24 05:53 Immature Gran # (Auto) 0.01 K/uL (0.01-0.20) 03/12/24 05:53 Platelet Estimate Decreased (Normal) L 03/11/24 18:40 D-Dimer 1150 ug/L FEU (0-500) H* 03/11/24 22:38 Sodium 138 mmol/L (136-145) 03/13/24 06:44 Potassium 3.7 mmol/L (3.5-5.1) 03/13/24 06:44 Chloride 106 mmol/L (98-107) 03/13/24 06:44 Carbon Dioxide 27 mmol/L (21-32) 03/13/24 06:44 Anion Gap 5 (3-11) 03/13/24 06:44 BUN 10 mg/dl (6-23) 03/13/24 06:44 Creatinine 0.66 mg/dl (0.6-1.2) 03/13/24 06:44 Est Cr Clr Drug Dosing 137.7 ml/min 03/13/24 06:44 Est GFR ( Amer) 130.8 ml/min 03/13/24 06:44 Est GFR (Non-Af Amer) 112.9 ml/min 03/13/24 06:44 BUN/Creatinine Ratio 15.2 (10-20) 03/13/24 06:44 Glucose 90 mg/dl (70-99(Fasting)) 03/13/24 06:44 Calcium 8.8 mg/dl (8.6-10.3) 03/13/24 06:44 Magnesium 1.6 mg/dl (1.7-2.4) L 03/13/24 06:44 Total Bilirubin 2.6 mg/dl (0.2-1.0) H 03/13/24 06:44 Direct Bilirubin 1.5 mg/dl (0-0.2) H 03/12/24 05:53 AST 137 U/L (13-39) H 03/13/24 06:44 ALT 62 U/L (7-52) H 03/13/24 06:44 Alkaline Phosphatase 108 U/L (34-104) H 03/13/24 06:44 Troponin I High Sens 9.3 pg/ml (0-14) 03/12/24 22:25 Total Protein 6.7 gm/dl (6.0-8.3) 03/13/24 06:44 Albumin 3.2 gm/dl (3.4-5.0) L 03/13/24 06:44 Globulin 3.5 gm/dl (2.5-4.0) 03/13/24 06:44 Albumin/Globulin Ratio 0.9 (0.9-2) 03/13/24 06:44 Triglycerides 55 mg/dl (0-150) 03/13/24 06:44 Cholesterol 131 mg/dl (0-200) 03/13/24 06:44 LDL Cholesterol, Calc 75 mg/dl 03/13/24 06:44 VLDL Cholesterol, Calc 11 mg/dl (0-30) 03/13/24 06:44 HDL Cholesterol 45 mg/dl 03/13/24 06:44 Cholesterol/HDL Ratio 2.9 (0-5) 03/13/24 06:44 Vitamin B12 > 1500 pg/ml (180-914) H 03/12/24 05:53 Folate > 22.30 ng/ml (>5.38) 03/12/24 05:53 TSH 6.728 uIu/ml (0.300-4.500) H 03/13/24 06:44 Free T4 0.76 ng/dl (0.61-1.60) 03/13/24 06:44 Adenovirus (PCR) Not Detected (NotDetected) 03/11/24 19:10 B. pertussis DNA (PCR) Not Detected (NotDetected) 03/11/24 19:10 B.parapertussis DNA PCR Not Detected (NotDetected) 03/11/24 19:10 C. pneumoniae DNA (PCR) Not Detected (NotDetected) 03/11/24 19:10 Coronavirus OC43 (PCR) Not Detected (NotDetected) 03/11/24 19:10 Coronavirus HKU1 (PCR) Not Detected (NotDetected) 03/11/24 19:10 Coronavirus 229E (PCR) Not Detected (NotDetected) 03/11/24 19:10 SARS-CoV-2 (PCR) Not Detected (NotDetected) 03/11/24 19:10 Coronavirus NL63 (PCR) Not Detected (NotDetected) 03/11/24 19:10 Human Metapneumovir PCR Not Detected (NotDetected) 03/11/24 19:10 Influenza Type A (PCR) Not Detected (NotDetected) 03/11/24 19:10 Influenza Type B (PCR) Not Detected (NotDetected) 03/11/24 19:10 M. pneumoniae (PCR) Not Detected (NotDetected) 03/11/24 19:10 Parainfluenza 1 (PCR) Not Detected (NotDetected) 03/11/24 19:10 Parainfluenza 2 (PCR) Not Detected (NotDetected) 03/11/24 19:10 Parainfluenza 3 (PCR) Not Detected (NotDetected) 03/11/24 19:10 Parainfluenza 4 (PCR) Not Detected (NotDetected) 03/11/24 19:10 RSV (PCR) Not Detected (NotDetected) 03/11/24 19:10 Entero/Rhino (PCR) Not Detected (NotDetected) 03/11/24 19:10 Impressions Wrist X-Ray 03/11/24 18:17 XR wrist RT min 3V routine CLINICAL HISTORY: Tried to karate chop a tree, wrist ecchymosis/swelling. COMPARISON: None FINDINGS: Alignment of the right wrist is anatomic. There is no acute fracture. Carpal bones are intact. Distal right radius and ulna are intact. There is mild wrist soft tissue swelling. IMPRESSION: 1. No fracture or dislocation within the right wrist. 2. Right wrist soft tissue swelling. ACT 112: Negative or not required by law. Electronically signed by: Santana Lara M.D. 03/11/2024 6:46 PM Chest X-Ray 03/11/24 18:18 XR chest 1V portable CLINICAL HISTORY: Shortness of breath. COMPARISON STUDY: Chest radiograph July 06, 2021. FINDINGS: Lung volumes are normal. Lungs are clear. There is no pneumothorax or pleural effusion. Cardiac size is normal. Mediastinal contours are normal. There is no evidence for pulmonary edema. Several old right-sided rib fractures are incidentally noted. IMPRESSION: No acute cardiopulmonary findings. ACT 112: Negative or not required by law. Electronically signed by: Santana Lara M.D. 03/11/2024 6:46 PM Liver Ultrasound 03/11/24 23:14 US liver CLINICAL HISTORY: elevated lft TECHNIQUE: Multiple real-time sonographic images of the right upper quadrant were obtained. Comparison: None available at the time of this dictation. FINDINGS: The liver is diffusely coarsened in echotexture, with a nodular contour. The liver appears shrunken in appearance. These findings are suggestive of cirrhosis. Recanalized umbilical vein is seen. The main portal vein is within normal limits. No intrahepatic ductal dilatation is seen. Linear hyperechoic foci with posterior shadowing are identified layering dependently within the gallbladder, which are consistent with gallstones. The gallbladder wall is not thickened measuring 1.9 to 2.5 mm. There is no pericholecystic fluid present. Sludge is seen. Kessler's sign cannot be assessed as the patient received pain medication. The common duct measures 0.5 cm in diameter at the level of the hepatic artery. The visualized portions of the pancreas appear normal. The right kidney shows normal echogenicity, cortical thickness and renal contour. The right kidney shows no evidence of hydronephrosis or mass. Perihepatic ascites is seen. Incidentally noted is a prominent appearing proximal IVC measuring 3.8 x 3.7 cm. IMPRESSION: Cirrhosis with trace ascites and recanalized umbilical vein. Otherwise no acute abnormalities. ACT 112: Negative or not required by law. Electronically signed by: Donn Hansen M.D. 03/12/2024 8:20 AM Chest CTA 03/11/24 23:57 Exam(s): CTA CHEST IV Amt: 118 ML OPTIRAY 320 EXAM: CT Angiography Chest With Intravenous Contrast CLINICAL HISTORY: Reason for exam: PE. TECHNIQUE: Axial computed tomographic angiography images of the chest with intravenous contrast. CTDI is 19.97 mGy and DLP is 679.28 mGy-cm. Automated exposure control was utilized for the study. A dose lowering technique was utilized adhering to the principles of ALARA. MIP reconstructed images were created and reviewed. COMPARISON: No relevant prior studies available. FINDINGS: Pulmonary arteries: No evidence of pulmonary embolism. Aorta: No acute findings. No thoracic aortic aneurysm. Lungs: Unremarkable. No mass. No consolidation. Pleural space: Unremarkable. No significant effusion. No pneumothorax. Heart: Unremarkable. No cardiomegaly. No significant pericardial effusion. No evidence of RV dysfunction. Bones/joints: No acute fracture. No dislocation. Soft tissues: Unremarkable. Lymph nodes: Unremarkable. No enlarged lymph nodes. IMPRESSION: No evidence of pulmonary embolism. Electronically signed by: Justice Whitley M.D. 03/12/24 03:05 AM Venous Doppler Study 03/12/24 08:42 BILATERAL LOWER EXTREMITY VENOUS DOPPLER HISTORY: elevated D dimer R/O DVT COMPARISON STUDY: 01/15/2024 FINDINGS: There is normal compressibility, flow, and augmentation within the bilateral lower extremity deep venous systems. IMPRESSION: No DVT within the right or left lower extremity. ACT 112: Negative or not required by law. Electronically signed by: Tim Cerws M.D. 03/12/2024 10:16 AM Ordered Studies 03/11/24 23:14 US liver Routine 03/11/24 23:57 CT angio chest PE protocol Urgent 03/12/24 08:42 US venous doppler LE BI Routine Hospital Course (1) Chest pain: 38-year-old female with past medical history significant for hypothyroidism, moderate persistent asthma, heart murmur, chronic hepatitis C, mouth,edentulous, GERD, recurrent headache, migraines, ongoing tobacco use and alcohol use, history of seizure presents with chest pains and shortness of breath. Patient states since last Sunday is having constant chest pain left-sided chest moderate in severity. No radiation. Also feeling short of breath. Patient's also had some right wrist pain after trying to chop a tree 4 days ago. Also having a lot of nausea and vomiting. Some dizziness. Vision is okay. No runny nose or sore throat. No cough. No abdominal pain. Normal bowel and bladder movements. Hemodynamics are okay. Chest pain Likely due to hypertension Mild troponin elevation likely demand ischemia --ECHO: EF 60 to 65%. Borderline concentric LVH. Left ventricular wall motion normal. Mild tricuspid regurgitation. Doppler findings do not suggest pulmonary hypertension. Continue losartan Blood pressure better Appreciate cardiology input Discussed with cardiology today--no further testing needed while hospitalized Plan to discharge home today Elevated D-dimer --CTA:No evidence of pulmonary embolism. --Venous Doppler:No DVT within the right or left lower extremity. Alcohol use disorder Received banana bag On gabapentin protocol Continue thiamine, folic acid [place] to quit alcohol use Hypokalemia Hypomagnesemia Monitor and replete electrolytes as needed Chronic transaminitis History of hepatitis C --Liver USD:Cirrhosis with trace ascites and recanalized umbilical vein. Otherwise no acute abnormalities. Following with hepatology Reports chronic right upper quadrant abdominal pain--unchanged per patient Avoid hepatotoxic agents as able [place] to quit alcohol use Admits to have not followed with GI for at least 1 year due to insurance issues Prefers to follow-up with GI as outpatient Tobacco abuse [place] to quit History of asthma Continue home inhalers Hypothyroidism Mildly elevated TSH, normal free T4 Continue levothyroxine GERD Continue PPI Migraines Pain control Thrombocytopenia Mostly from liver disease Monitor CBC DVT SCDs Re: thrombocytopenia CODE STATUS Full code Disposition Home Total Time Total Time Spent Total Time Spent (In Minutes): 56 minutes Discharge Plan Discharge Items Patient Disposition: Home - Self-Care Reason For Visit: CHEST PAIN, SOB Discharge Diagnosis: Atypical chest pain Hypertension Alcohol use disorder Hypokalemia Hypomagnesemia Chronic transaminitis Activity: Per Instructions section Exercise/Sports: Wait until after follow-up appointment Non-emergency contact: Primary Care Provider and [employer] Supervisor Call non-emergency contact if: you have any medication questions, your symptoms worsen, your pain is concerning for you and you have a fever Follow-up/Referrals: Justine Valero CRNP [Primary Care Provider] - (Date & Time 03/21/2024 11:00 AM Provider Justine Valero CRNP Department [facility] ) Diet: Heart Healthy Addtl Attending Provider Instructions: Follow-up with your primary care physician Justine AMEZCUA on 03/21/2024 11:00 AM Follow-up with your global compensation manager Dr. Joaquin as needed Follow-up with your human resources compliance manager for further evaluation of abdominal pain as advised --Monitor your blood pressure regularly as advised. Discuss with your physician for further adjustment of medications as needed --Quit drinking alcohol as advised -- Quit smoking tobacco as advised by your global compensation manager --Get thyroid function test (TSH, free T4) in 4 weeks and discuss with your physician for further instructions. Seek immediate medical attention if your symptoms reoccur or worsen Please take all medications as instructed on discharge list below. Please call if you have any questions or problems. You can reach a [facility] hospitalist on duty at [facility] 24 hours a day by calling [phone] Pending Studies at Discharge: No Stand-Alone Forms: [facility] [employer], Smoking Cessation Medications and DC Order Prescriptions: New losartan 25 mg Tablet 25 mg PO QAM Qty: 30 1RF magnesium chloride [Mag 64] 64 mg Tablet,Delayed Release (Dr/Ec) 64 mg PO BID Qty: 60 0RF Continued sumatriptan succinate 100 mg Tablet 0 mg PO .COMPLEX Rx Instructions: take 1 tab at onset of headache; if no relief, may repeat 1 tab after at least 2 hrs; max = 2 tabs/24 hrs omeprazole 40 mg capsule,delayed release(DR/EC) 40 mg PO QAM levothyroxine 100 mcg tablet 100 mcg PO QAM famotidine 20 mg Tablet 20 mg PO DAILY montelukast 10 mg Tablet 10 mg PO HS fluticasone propionate [Flonase Allergy Relief] 50 mcg/actuation [place],Suspension 2 spray INTRANASAL DAILY Rx Instructions: administer into each nostril fluticasone propion-salmeterol [Advair HFA] 230-21 mcg/actuation Hfa Aerosol Inhaler 2 puff INHALATION BID Vitron-C 65 mg iron- 125 mg tablet,delayed release (DR/EC) 1 tab PO BID Discharge Orders: Discharge Order (Routine); Ordered 03/13/24 Ordered By: Prem Jj Admission Data Admit Date/Time: 03/11/24 21:35 Attending Provider: Prem Jj Admit Provider: Anastacio Pagan Primary Care Provider: Justine Valero Other Providers: Anastacio Pagan; Juan M Joaquin
[2024-03-13] MEDS ORDERED: MONTELUKAST SODIUM 10 MG TABLET PO SCH (21:00)
[2024-03-13] MEDS ORDERED: GABAPENTIN 600 MG TAB PO SCH (21:45)
--- NOTE | 2024-03-14 16:37 | Coding Query ---
CODING QUERY To promote full compliance with coding requirements relating to patient care, provider participation is requested in all cases of lecturer of portuguese uncertainty. Please assist us with the question(s) below: Coding Question(s): Discharge Summary-Chest pain Likely due to hypertension Admitting BP readings: 175/97 167/96 133/110 Physician's Response(s): Further clarification is needed in profiling hypertension. Pls clarify the type of hypertension: [ x ] HTN urgency [ ] HTN emeregency [ ] HTN crisis [ ] Other Thank you Esther Martinez,CDIP, CCS Principal Diagnosis: "that condition established after study, to be chiefly responsible for occasioning the admission of the patient to the hospital for care." Co-Existing Principal Diagnosis: "when two or more diagnoses equally meet the criteria for principal diagnosis as determined by the circumstances of admission, diagnostic work up, and/or therapy provided, and the Alphabetic Index, Tabular List, or another coding guideline does not provide sequencing direction, any one of the diagnoses may be sequenced first." "When the physician has documented what appears to be a current diagnosis in the body of the record, but has not included the diagnosis in the final diagnostic statement, the physician should be asked whether the diagnosis should be added." (Source Coding [facility] 2 QTR90. p3-4) PASCALE
[2024-03-15] MEDS ORDERED: GABAPENTIN 600 MG TAB PO SCH (09:45)
== END 2024-03-13 16:00 | disposition home or self-care (01) | DRG 305 ==
LOC: ED 17:02 → 2N 21:35
DX: I10 Essential (primary) hypertension; Z79.890 Hormone replacement therapy; F17.210 Nicotine dependence, cigarettes, uncomplicated; I24.89 Other forms of acute ischemic heart disease; E83.42 Hypomagnesemia; Z88.2 Allergy status to sulfonamides; B18.2 Chronic viral hepatitis C; E87.6 Hypokalemia; J45.40 Moderate persistent asthma, uncomplicated; E03.9 Hypothyroidism, unspecified; K70.30 Alcoholic cirrhosis of liver without ascites; F10.20 Alcohol dependence, uncomplicated; R07.89 Other chest pain; Z79.899 Other long term (current) drug therapy; K21.9 Gastro-esophageal reflux disease without esophagitis; D69.59 Other secondary thrombocytopenia; I16.0 Hypertensive urgency; G43.909 Migraine, unspecified, not intractable, without status migrainosus

== ENCOUNTER 2025-02-08 16:13 | Inpatient (IN) ==
[2025-02-08 16:56] LABS: Basophils # (auto) 0.07 K/uL (0.00-0.20); Basophils % (auto) 0.6 %; Eosinophils # (auto) 0.13 K/uL (0.00-0.50); Eosinophils % (auto) 1.1 %; Hematocrit (blood only) 35.2 % (37.0-47.0); Hemoglobin 12.1 g/dl (12.0-16.0); Immature Granulocytes # (auto) 0.04 K/uL (0.01-0.20); Immature Granulocytes % (auto) 0.3 %; Lymphocytes % (auto) 15.9 %; Mean Corpuscular Hemoglobin 34.7 pg (25.0-34.0); Mean Corpuscular Hgb Conc 34.4 g/dL (32.0-36.0); Mean Corpuscular Volume 100.9 fL (80.0-100.0); Mean Platelet Volume 12.6 fL (9.4-12.4); Monocytes # (auto) 0.77 K/uL (0.11-0.59); Monocytes % (auto) 6.4 %; Neutrophils # (auto) 9.07 K/uL (1.40-6.50); Neutrophils % (auto) 75.7 %; Platelet Count 68 K/uL (130-400); RDW Coefficient of Variation 15.4 % (11.5-14.5); RDW Standard Deviation 57.4 fL (36.4-46.3); Red Blood Count 3.49 M/uL (4.20-5.40); White Blood Count 11.98 K/ul (4.8-10.8)
[2025-02-08 17:10] LABS: Albumin Globulin Ratio 0.8 (0.9-2); Albumin Level 3.3 gm/dl (3.4-5.0); BUN Creatinine Ratio 22.4 (10-20); Bilirubin,Total 2.1 mg/dl (0.2-1.0); Calcium 8.6 mg/dl (8.6-10.3); Creatinine Clr Calc Pharmacy 87.7 ml/min; Potassium 3.6 mmol/L (3.5-5.1); Total Protein 7.3 gm/dl (6.0-8.3)
--- NOTE | 2025-02-08 17:29 | Ultrasound Report ---
EXAM: US Duplex Right Lower Extremity Veins INDICATION: Swelling TECHNIQUE: Real-time duplex ultrasound scan of the right lower extremity veins integrating B-mode two-dimensional vascular structure, Doppler spectral analysis, color flow Doppler imaging and compression. COMPARISON: 5 FINDINGS: Deep veins: No DVT in the visualized common femoral, femoral or popliteal veins. The veins demonstrate normal color flow, are normally compressible, with normal phasic flow and/or augmentation response. Superficial veins: No abnormality noted. No thrombus in the visualized great saphenous vein. Soft tissues: Diffuse subcutaneous edema noted. No fluid collection. IMPRESSION: No deep venous thrombosis of the right lower extremity. ACT 112: N/A Electronically signed by Gloria Devine 02-08-2025 5:28 PM
--- NOTE | 2025-02-08 18:39 | Emergency Department Note ---
Impression & Plan Cellulitis, Rash, Acute hyponatremia, Thrombocytopenia ED Provider Note NAME: LATRICE WILLS AGE: 39 SEX: F : 1985 ARRIVES VIA: Walk-In INFORMANT: Patient ED PROVIDER(S): Miguel Dwyer DO CHIEF COMPLAINT: Right lower extremity pain swelling and redness HPI: Patient is a 39-year-old female who presents to the ER for right lower extremity pain swelling and redness. She was seen at [facility] urgent care and per the report she was found to be hypotensive and sent in for IV antibiotics for cellulitis. Patient notes that this started on initially proximal to the leg and then went distally. She notes that it is not itchy. It is slightly painful. Has felt hot. Denies any headache or change in vision. No chest pain or shortness of breath. No nausea, vomiting, or diarrhea. ADDITIONAL HISTORY OBTAINED: Per HPI Chronic Medical/Social Conditions Affecting Care: Per HPI PAST MEDICAL HISTORY:See Below PAST SURGICAL HISTORY:See Below FAMILY HISTORY:See Below SOCIAL HISTORY:See Below HOME MEDICATIONS:See Below ALLERGIES:See Below VITALS:See Below PHYSICAL EXAMINATION: GENERAL: Sitting up in bed, alert, well appearing, well nourished, no distress, non-toxic EYE EXAM: normal conjunctiva. OROPHARYNX:mucous membranes are moist NECK: supple, no nuchal rigidity, no adenopathy, non-tender LUNGS: Clear to auscultation. Normal chest wall mechanics HEART: no murmurs, S1 normal and S2 normal ABDOMEN: abdomen soft, non-tender, normo-active bowel sounds, no masses, no rebound or guarding. UPPER EXTREMITIES: upper extremities are grossly normal. LOWER EXTREMITIES: Pitting edema in the right lower extremity. Redness and petechiae and erythema streaking from the right lower extremity to the right groin. Skin is slightly warm and tender. DP 2 out of 4. NEURO EXAM: Normal sensorium, cranial nerves II-XII grossly intact, normal speech, no gross weakness of arms, no gross weakness of legs. MEDICAL DECISION MAKING: Patient is a 39-year-old female who presents ER for above-stated complaint. IV was established and blood work was obtained. Labs show mild leukocytosis of 12,000. No significant anemia. Thrombocytopenia at 68. BMP with hyponatremia at 129. LFTs show transaminitis. T. bili at 2.1. Ultrasound venous Doppler of the right lower extremity shows no DVT. Patient was given IV Rocephin and IV fluids. Updated bedside. Discussed case with the hospitalist for further evaluation management and treatment. Consults/Care Managements Discussions: Per MDM Triage Nursing notes reviewed. Limited review of prior medical records performed Vital Signs: reviewed and remarkable for no significant abnormalities Differential diagnosis: Cellulitis, abscess, MRSA infection, DVT, necrotizing fasciitis, dermatitis, drug eruption, allergic reaction, as well as other pathologies. ER treatment provided: See below Diagnostics interpreted by me include EKG and cardiac monitoring as listed below: -Cardiac Monitoring: An order was placed for continuous cardiac monitoring. The monitor shows a rate of 80 with sinus rhythm. -ECG: none -Laboratory studies:Interpreted by me as stated above in MDM and shown below. Imaging studies: Xrays: As interpreted by me:none CTs show: none Venous duplex shows no DVT Procedures:none Critical Care: None Past Med/Surg History Problem List (Updated 02/08/25 @ 18:39 by Miguel Dwyer DO) Thrombocytopenia (Acute) Acute hyponatremia (Acute) Rash (Acute) Cellulitis (Acute) Right elbow pain (Acute) Acute pain of right shoulder (Acute) Sprain and strain of wrist (Acute) Hypertension (Acute) Chest pain (Acute) Medical History Asthma GERD (gastroesophageal reflux disease) Hepatitis C Hypothyroidism Family History Other Family history non-contributory Social History Smoking Status: Current every day smoker Tobacco Type: Cigarettes and E-cigarettes / Vaping Hx Alcohol Use: Yes Alcohol type: beer Hx Substance Use: Yes Last Used Substance: Days (ago) Preferred Language: Afghan Communication Ability: Effective Director Of Fundraising Required: No Beliefs That Will Affect Care: None Current Living Situation: Significant Other Current Living Situation Comment: lives with boyfriend and his family Feels Safe at Home: Yes Assistive Devices: Glasses Allergies Allergies Allergy/AdvReac Type Severity Reaction Status Date / Time sulfamethoxazole Allergy Mild YEAST Verified 02/08/25 18:03 [From Bactrim] INFECTION/ITCHING trimethoprim [From Bactrim] Allergy Mild YEAST Verified 02/08/25 18:03 INFECTION/ITCHING Home Meds Home Medications Medication Instructions Recorded Confirmed famotidine 20 mg tablet 20 mg PO DAILY 03/11/24 02/08/25 fluticasone propionate 230 2 puff inhalation BID 03/11/24 02/08/25 mcg-salmeterol 21 mcg/actuation HFA inhaler (Advair HFA) fluticasone propionate 50 2 spray intranasal DAILY 03/11/24 02/08/25 mcg/actuation nasal spray,suspension (Flonase Allergy Relief) iron,carbonyl 65 mg-vitamin C 125 1 tab PO BID 03/11/24 02/08/25 mg tablet,delayed release (Vitron-C) montelukast 10 mg tablet 10 mg PO HS 03/11/24 02/08/25 omeprazole 40 mg capsule,delayed 40 mg PO QAM 03/11/24 02/08/25 release sumatriptan succinate 100 mg tablet 0 mg PO .COMPLEX 03/11/24 02/08/25 levothyroxine 112 mcg tablet 112 mcg PO DAILYBB 02/08/25 02/08/25 Previous Rx's Medication Instructions Recorded losartan 25 mg tablet 25 mg PO QAM #30 tabs 03/13/24 magnesium chloride 64 mg 64 mg PO BID #60 tabs 03/13/24 (magnesium chloride) tablet,delayed release (Mag 64) Results & Data (ED) Vital Signs Vital Signs - 24 hr 02/08/25 16:18 Temperature 36.8 C Temperature Source Temporal Artery Scan Pulse Rate 77 Respiratory Rate 20 Respiratory Effort / Characteristics Non-Labored Spontaneous Respiratory Depth Normal Blood Pressure 99/62 L Blood Pressure Mean 74 Pulse Oximetry 97 Oxygen Delivery Method Room Air Sepsis Recent Fever Within 48 Hours No Sepsis New/Unexplained Change in Mental Status No Sepsis Action Taken by Nursing No Action Required Laboratory Data 02/08/25 16:30 02/08/25 16:30 Lab Results 02/08/25 Range/Units 16:30 WBC 11.98 H (4.8-10.8) K/ul RBC 3.49 L (4.20-5.40) M/uL Hgb 12.1 (12.0-16.0) g/dl Hct 35.2 L (37.0-47.0) % MCV 100.9 H (80.0-100.0) fL MCH 34.7 H (25.0-34.0) pg MCHC 34.4 (32.0-36.0) g/dL RDW Std Deviation 57.4 H (36.4-46.3) fL RDW Coeff of Fernando 15.4 H (11.5-14.5) % Plt Count 68 L (130-400) K/uL MPV 12.6 H (9.4-12.4) fL Immature Gran % (Auto) 0.3 % Neut % (Auto) 75.7 % Lymph % (Auto) 15.9 % Gates % (Auto) 6.4 % Eos % (Auto) 1.1 % Baso % (Auto) 0.6 % Neut # (Auto) 9.07 H (1.40-6.50) K/uL Lymph # (Auto) 1.90 (1.20-3.40) K/uL Gates # (Auto) 0.77 H (0.11-0.59) K/uL Eos # (Auto) 0.13 (0.00-0.50) K/uL Baso # (Auto) 0.07 (0.00-0.20) K/uL Immature Gran # (Auto) 0.04 (0.01-0.20) K/uL Sodium 129 L (136-145) mmol/L Potassium 3.6 (3.5-5.1) mmol/L Chloride 97 L (98-107) mmol/L Carbon Dioxide 26 (21-32) mmol/L Anion Gap 6 (3-11) BUN 24 H (6-23) mg/dl Creatinine 1.07 (0.6-1.2) mg/dl Est Cr Clr Drug Dosing 87.7 ml/min eGFR 68.19 BUN/Creatinine Ratio 22.4 H (10-20) Glucose 113 H (70-99(Fasting)) mg/dl Calcium 8.6 (8.6-10.3) mg/dl Total Bilirubin 2.1 H (0.2-1.0) mg/dl AST 153 H (13-39) U/L ALT 78 H (7-52) U/L Alkaline Phosphatase 133 H (34-104) U/L Total Protein 7.3 (6.0-8.3) gm/dl Albumin 3.3 L (3.4-5.0) gm/dl Globulin 4.0 (2.5-4.0) gm/dl Albumin/Globulin Ratio 0.8 L (0.9-2) Lyme Disease Screen Negative (Negative) Administered Medications Discontinued Medications Ceftriaxone Sodium (Rocephin) 2,000 mg in 50 mls @ 100 mls/hr IV NOW STA Stop: 02/08/25 16:59 Last Infusion: 02/08/25 17:17 Dose: Infused Documented By: Admin: 02/08/25 16:47 Dose: 100 mls/hr Documented By: CHERYL Sodium Chloride (Nss) 1,000 mls @ 999 mls/hr IV .Q1H1M ONE Stop: 02/08/25 17:38 Last Infusion: 02/08/25 17:57 Dose: Infused Documented By: Admin: 02/08/25 16:48 Dose: 999 mls/hr Documented By: CHERYL Imaging Data Radiologist's Impression: Venous Doppler Study 02/08/25 16:29 EXAM: US Duplex Right Lower Extremity Veins INDICATION: Swelling TECHNIQUE: Real-time duplex ultrasound scan of the right lower extremity veins integrating B-mode two-dimensional vascular structure, Doppler spectral analysis, color flow Doppler imaging and compression. COMPARISON: 5 FINDINGS: Deep veins: No DVT in the visualized common femoral, femoral or popliteal veins. The veins demonstrate normal color flow, are normally compressible, with normal phasic flow and/or augmentation response. Superficial veins: No abnormality noted. No thrombus in the visualized great saphenous vein. Soft tissues: Diffuse subcutaneous edema noted. No fluid collection. IMPRESSION: No deep venous thrombosis of the right lower extremity. ACT 112: N/A Electronically signed by Gloria Devine 02-08-2025 5:28 PM Discharge Plan Visit Data Chief Complaint: Illness Stated Complaint: LOW BP, RASH ON RT LEG, REF BY ED Provider: Miguel Dwyer Discharge Problem: Cellulitis, Rash, Acute hyponatremia, Thrombocytopenia Condition: Fair Forms Stand Alone Forms: My [facility] [employer] Prescriptions Prescriptions: No Action sumatriptan succinate 100 mg Tablet 0 mg PO .COMPLEX Rx Instructions: NEEDS A NEW SCRIPT take 1 tab at onset of headache; if no relief, may repeat 1 tab after at least 2 hrs; max = 2 tabs/24 hrs omeprazole 40 mg capsule,delayed release(DR/EC) 40 mg PO QAM famotidine 20 mg Tablet 20 mg PO DAILY montelukast 10 mg Tablet 10 mg PO HS fluticasone propionate [Flonase Allergy Relief] 50 mcg/actuation Godwin,Suspension 2 spray INTRANASAL DAILY Rx Instructions: administer into each nostril fluticasone propion-salmeterol [Advair HFA] 230-21 mcg/actuation Hfa Aerosol Inhaler 2 puff INHALATION BID Vitron-C 65 mg iron- 125 mg tablet,delayed release (DR/EC) 1 tab PO BID losartan 25 mg Tablet 25 mg PO QAM Qty: 30 1RF magnesium chloride [Mag 64] 64 mg Tablet,Delayed Release (Dr/Ec) 64 mg PO BID Qty: 60 0RF levothyroxine 112 mcg tablet 112 mcg PO DAILYBB Referrals Referrals: Justine Valero CRNP [Primary Care Provider] - Discharge Problem: Cellulitis Qualifiers: Site of cellulitis: unspecified site Qualified Code(s): L03.90 - Cellulitis, unspecified
[2025-02-08 18:50] LABS: Appearance Urine Cloudy (Clear); Bacteria Urine Automated 1+ (None Seen); Bilirubin Urine 1+ (Negative); Blood Urine Negative (Negative); Color Urine Dark Yellow; Glucose Urine UA Negative (Negative); Ketones Urine Trace (Negative); Leukocyte Esterase Urine Trace (Negative); Nitrite Urine Negative (Negative); Protein Urine Negative (Negative); Specific Gravity Urine 1.012 (1.000-1.030); Urobilinogen Urine Positive (Negative); WBC Urine Automated 0-5 /hpf (0-5); pH Urine 5.5 (4.5-7.5)
[2025-02-08 19:00] LABS: Epithelial Cell Urine Auto >20 /hpf (0-2); Hyaline Casts Urine P /lpf (None Presnt)
--- NOTE | 2025-02-08 19:01 | History & Physical Report ---
Date of Service February 08, 2025 Assessment & Plan (1) Cellulitis: Plan: Patient is a 39 year old F with a past medical history of Asthma, GERD, Hep C, Hypothyroidism presenting with left lower extremity red rash from [facility]. Symptoms started on initially proximal to the leg and then went distally, not itchy, ++painful and warm. Able to walk on the left leg with difficulty. Denies topical agents, new medications, or known bug bites. Does not feel this is related to shaving. Had fevers, chills, vomiting at home. Fever mildly relieved with ibuprofen. Went to today and transferred here. Cellulitis 2/2 rash RLE * Admit to [facility] for further management of cellulitis * Ceftriaxone given in the ED * Venous Doppler negative for DVT * Blood culture pending * Will start Unasyn for broader coverage this evening * Pain control- Tylenol mild pain; Oxy moderate pain; Morphine severe pain * Cellulitis marked with permanent marker #Acute hyponatremia * Sodium 129 on admission in setting of dehydration in setting of illness with vomiting * NSS bolus given in ED * Trend with AM labs #Hypothyroidism * Continue home levothyroxine #GERD * Continue home regimen of Pepcid and PPI #Asthma * Asymptomatic here * Continue home controller Advair and fluticasone DVT Ppx: SCD's- low PLTs Code status: Full PCP: Dr. Justine Valero Dispo: Admit to [facility] Patient seen in collaboration with Dr. Major. Please see addendum.I spent a total of 60 minutes coordinating, documenting and providing care for this patient excluding time spent in the performance of separately billed services or time spent by another provider/QHP. (2) Rash: (3) Acute hyponatremia: (4) GERD (gastroesophageal reflux disease): (5) Hypothyroidism: (6) Asthma: History of Present Illness Primary Care Provider: GOLDIE Bobo Patient is a 39 year old F with a past medical history of Asthma, GERD, Hep C, Hypothyroidism presenting with right lower extremity red rash from [facility]. Symptoms started on initially proximal to the leg and then went distally, not itchy, ++painful and warm. Able to walk on the left leg with difficulty. Denies topical agents, new medications, or known bug bites. Does not feel this is related to shaving. Had fevers, chills, vomiting at home. Fever mildly relieved with ibuprofen. Went to today and transferred here. Denies weight loss, weakness, headache, cognitive changes, vision/hearing changes, chest pain, SOB, swelling, difficulty breathing, urinary concerns, diarrhea, bleeding, bruising. In the emergency department, patient was hemodynamically stable, afebrile, had a slightly elevated WBC 11.98 and no signs of sepsis. Lyme negative. Ceftriaxone initiated in the ED. Dehydrated with an elevated BUN 24 and Cr 1.07 (increased from prev assessment 0.68 on 10/2024); hyponatremic at 129--1L NSS fluid bolus given. +transaminitis noted in today's labs, possibly from current illness; however, patient does have a history of Hep C. Possible UTI- UA with trace leukocyte esterase. Urine culture pending. Venous Doppler showing No deep venous thrombosis of the right lower extremity. History obtained primarily from the patient and via hospitalization record. Allergies Allergy/AdvReac Type Severity Reaction Status Date / Time sulfamethoxazole Allergy Mild YEAST Verified 02/08/25 18:03 [From Bactrim] INFECTION/ITCHING trimethoprim [From Bactrim] Allergy Mild YEAST Verified 02/08/25 18:03 INFECTION/ITCHING Home Medications Medication Instructions Recorded Confirmed Type famotidine 20 mg tablet 20 mg PO DAILY 03/11/24 02/08/25 History fluticasone propionate 230 2 puff inhalation BID 03/11/24 02/08/25 History mcg-salmeterol 21 mcg/actuation HFA inhaler (Advair HFA) fluticasone propionate 50 2 spray intranasal DAILY 03/11/24 02/08/25 History mcg/actuation nasal spray,suspension (Flonase Allergy Relief) iron,carbonyl 65 mg-vitamin C 125 1 tab PO BID 03/11/24 02/08/25 History mg tablet,delayed release (Vitron-C) montelukast 10 mg tablet 10 mg PO HS 03/11/24 02/08/25 History omeprazole 40 mg capsule,delayed 40 mg PO QAM 03/11/24 02/08/25 History release sumatriptan succinate 100 mg tablet 0 mg PO .COMPLEX 03/11/24 02/08/25 History losartan 25 mg tablet 25 mg PO QAM #30 tabs 03/13/24 02/08/25 Rx magnesium chloride 64 mg 64 mg PO BID #60 tabs 03/13/24 02/08/25 Rx (magnesium chloride) tablet,delayed release (Mag 64) levothyroxine 112 mcg tablet 112 mcg PO DAILYBB 02/08/25 02/08/25 History Past Med/Surg History Problem List (Updated 02/08/25 @ 18:39 by Miguel Dwyer DO) Thrombocytopenia (Acute) Acute hyponatremia (Acute) Rash (Acute) Cellulitis (Acute) Right elbow pain (Acute) Acute pain of right shoulder (Acute) Sprain and strain of wrist (Acute) Hypertension (Acute) Chest pain (Acute) Medical History Asthma GERD (gastroesophageal reflux disease) Hepatitis C Hypothyroidism Family History Other Family history non-contributory Social History Smoking Status: Current every day smoker Tobacco Type: Cigarettes and E-cigarettes / Vaping Second Hand Exposure: No; Do You Dip or Chew Tobacco: No; Tobacco Cessation Education Requested by Patient: No Hx Alcohol Use: Yes Alcohol type: beer Hx Substance Use: Yes Last Used Substance: Days (ago) Preferred Language: Mosotho Communication Ability: Effective Rn Admissions Required: No Beliefs That Will Affect Care: None Current Living Situation: Significant Other Current Living Situation Comment: lives with boyfriend and his family Other Information That Helps Us Care for You: No Feels Safe at Home: Yes Safety Concerns: Feels Safe At This Time Assistive Devices: Glasses Review of Systems Review of Systems: All systems reviewed & are unremarkable except as noted in HPI & below Physical Exam Physical Exam: VITALS: Reviewed. GEN: Healthy appearing, well-developed, NAD. PSYCH: Good Judgment. AOx3. Normal memory, mood, and affect. HEENT -Head: NC/AT; -Eyes: PERRL, EOMI. No discharge or redn ess; -Ears: External ears are normal. -Nose: Normal nares. -Mouth and throat: MMM. Normal gums, muc erick, palate,. NECK: Supple, with no masses. CV: + systolic murmur to LSB, rhythm regular, pulses strong throughout , LUNGS: CTAB, no w/r/c. ABD: Soft, NT/ND, NBS, no masses or organomegaly. : N/A SKIN: LLE + erythema from top of thigh to ankle, no open areas, warm and tender to touch, swollen MSK: No deformities, Normal gait. EXT: No clubbing, cyanosis, or edema. NEURO: Ambulating with some limitations. Normal muscle strength and tone. No focal deficits. Results & Data Results & Data Vital Signs (Past 12 Hours) Vital Signs Temp Pulse Resp BP Pulse Ox O2 Del Method 02/08/25 16:18 36.8 C 77 20 99/62 L 97 Room Air Laboratory Results Short CBC 02/08/25 Range/Units 16:30 WBC 11.98 H (4.8-10.8) K/ul Hgb 12.1 (12.0-16.0) g/dl Hct 35.2 L (37.0-47.0) % Plt Count 68 L (130-400) K/uL BMP 02/08/25 16:30 Sodium 129 L Potassium 3.6 Chloride 97 L Carbon Dioxide 26 BUN 24 H Creatinine 1.07 Glucose 113 H Calcium 8.6 Liver Function 02/08/25 Range/Units 16:30 Total Bilirubin 2.1 H (0.2-1.0) mg/dl AST 153 H (13-39) U/L ALT 78 H (7-52) U/L Alkaline Phosphatase 133 H (34-104) U/L Albumin 3.3 L (3.4-5.0) gm/dl Urine 02/08/25 Range/Units 18:02 Urine Color Dark Yellow Urine Appearance Cloudy A (Clear) Urine pH 5.5 (4.5-7.5) Ur Specific [place] 1.012 (1.000-1.030) Urine Protein Negative (Negative) Urine Glucose (UA) Negative (Negative) Diagnostic Findings Venous Doppler Study 02/08/25 16:29 EXAM: US Duplex Right Lower Extremity Veins INDICATION: Swelling TECHNIQUE: Real-time duplex ultrasound scan of the right lower extremity veins integrating B-mode two-dimensional vascular structure, Doppler spectral analysis, color flow Doppler imaging and compression. COMPARISON: 5 FINDINGS: Deep veins: No DVT in the visualized common femoral, femoral or popliteal veins. The veins demonstrate normal color flow, are normally compressible, with normal phasic flow and/or augmentation response. Superficial veins: No abnormality noted. No thrombus in the visualized great saphenous vein. Soft tissues: Diffuse subcutaneous edema noted. No fluid collection. IMPRESSION: No deep venous thrombosis of the right lower extremity. ACT 112: N/A Electronically signed by Gloria Devine 02-08-2025 5:28 PM Supervising Physician Co-Signing Physician Notes Attending addendum: The patient was seen and examined in emergency room She was admitted with spreading rash/cellulitis involving the right lower extremity associated with feverish feeling and tenderness This has been happening for the last 12 hours or so Some swelling of the right lower extremity but no shortness of breath, chest pain and/or palpitation On examination She remains afebrile and hemodynamically stable Chest was clear to auscultate bilaterally HeartS1-S2, regular Abdomenbenign Extremitiesno edema left lower extremity Right lower extremity is red with swelling and tenderness and increased local temperature and occasional petechial starting from the groin to the foot Her admission labs, imaging studies reviewed Assessment plan Spreading cellulitis of the right lower extremity without any evidence of DVT or any open wounds Noted to have hyponatremia History of hepatitis C under care of orthophotography technician in [place] and is going to have specific treatment down the line Started with intravenous Unasyn and intravenous fluid Agree with assessment and plan as outlined above by Myranda AMEZCUA and take the full responsibility of care in the hospital Dr. Severo Major (1) Cellulitis Site of cellulitis: unspecified site Qualified Code(s): L03.90 - Cellulitis, unspecified
[2025-02-08 19:03] LABS: Calcium Oxalate Crystals Urine Present (None Prsent)
[2025-02-08 19:04] LABS: RBC Urine Automated 0-2 /hpf (0-2)
[2025-02-08 19:06] LABS: Renal Epithelial Cells Urine Present /lpf (None Presnt)
[2025-02-09 06:52] LABS: Hematocrit (blood only) 30.9 % (37.0-47.0); Hemoglobin 10.6 g/dl (12.0-16.0); Mean Corpuscular Hemoglobin 34.4 pg (25.0-34.0); Mean Corpuscular Hgb Conc 34.3 g/dL (32.0-36.0); Mean Corpuscular Volume 100.3 fL (80.0-100.0); Mean Platelet Volume 13.1 fL (9.4-12.4); Platelet Count 53 K/uL (130-400); RDW Coefficient of Variation 15.9 % (11.5-14.5); RDW Standard Deviation 58.6 fL (36.4-46.3); Red Blood Count 3.08 M/uL (4.20-5.40)
[2025-02-09 07:12] LABS: BUN Creatinine Ratio 26.8 (10-20); Calcium 8.2 mg/dl (8.6-10.3); Creatinine Clr Calc Pharmacy 135.4 ml/min; Potassium 3.9 mmol/L (3.5-5.1)
--- NOTE | 2025-02-09 10:14 | Hospitalist Progress Note ---
Date of Service February 09, 2025 Assessment & Plan (1) Cellulitis: Plan: Patient is a 39 year old F with a past medical history of Asthma, GERD, Hep C, Hypothyroidism presenting with left lower extremity red rash from [facility]. Symptoms started on initially proximal to the leg and then went distally, not itchy, ++painful and warm. Able to walk on the left leg with difficulty. Denies topical agents, new medications, or known bug bites. Does not feel this is related to shaving. Had fevers, chills, vomiting at home. Fever mildly relieved with ibuprofen. Went to and transferred here. Cellulitis 2/2 rash RLE * Admitted to Med Surg for further management of cellulitis * Ceftriaxone given in the ED * Venous Doppler negative for DVT * Blood culture pending * started Unasyn for broader coverage on antibiotics, pt also has hx of MRSA, will vanco for now * Pain control- Tylenol mild pain; Oxy moderate pain; Morphine severe pain * Cellulitis to be marked with permanent marker #Acute hyponatremia * Sodium 129 on admission in setting of dehydration in setting of illness with vomiting * NSS bolus given in ED * Current Na 138 #Hypothyroidism * Continue home levothyroxine #GERD * Continue home regimen of Pepcid and PPI #Asthma * Asymptomatic here * Continue home controller Advair and fluticasone DVT Ppx: SCD's- low PLTs Code status: Full PCP: Dr. Justine Valero Dispo: Med Surg (2) Rash: (3) Acute hyponatremia: (4) GERD (gastroesophageal reflux disease): (5) Hypothyroidism: (6) Asthma: Admission and Anticipated Discharge Date Admission Date: February 08, 2025 Subjective Pt seen in follow up of cellulitis Lying in bed in [facility] Feels cellulitis is getting better, but still her leg is quite tender and erythematous no chest pain, shortness of breath, abd. pain, n/v Review of Systems Review of Systems: All systems reviewed & are unremarkable except as noted in Subjective Physical Exam Constitutional: WD/WN, vitals as above Eyes: PERRL, conjunctivae normal, anicteric sclerae ENMT: external ear and nose normal, oropharynx normal Neck: supple Respiratory: normal respiratory effort, lungs clear to auscultation Cardiovascular: regular Gastrointestinal (Abdomen): soft, nontender Musculoskeletal: R LE erythema, posterior thigh, groin, and down to ankle with some petechiae Skin: warm, dry, erythema as above Neurologic: PERRL, EOMI, accommodation nl, no face palsy, no dysarthria Psychiatric: A+Ox3, euthymic affect Results & Data Results & Data Vital Signs (Past 12 Hours) Vital Signs Temp Pulse Resp BP Pulse Ox O2 Del Method 02/09/25 07:25 36.4 C L 54 L 18 97/54 L 95 Room Air Laboratory Results 02/09/25 02/08/25 02/08/25 Range/Units 06:21 18:02 16:30 WBC 7.10 11.98 H (4.8-10.8) K/ul RBC 3.08 L 3.49 L (4.20-5.40) M/uL Hgb 10.6 L 12.1 (12.0-16.0) g/dl Hct 30.9 L 35.2 L (37.0-47.0) % MCV 100.3 H 100.9 H (80.0-100.0) fL MCH 34.4 H 34.7 H (25.0-34.0) pg MCHC 34.3 34.4 (32.0-36.0) g/dL RDW Std Deviation 58.6 H 57.4 H (36.4-46.3) fL RDW Coeff of Fernando 15.9 H 15.4 H (11.5-14.5) % Plt Count 53 L 68 L (130-400) K/uL MPV 13.1 H 12.6 H (9.4-12.4) fL Immature Gran % (Auto) 0.3 % Neut % (Auto) 75.7 % Lymph % (Auto) 15.9 % [place] % (Auto) 6.4 % Eos % (Auto) 1.1 % Baso % (Auto) 0.6 % Neut # (Auto) 9.07 H (1.40-6.50) K/uL Lymph # (Auto) 1.90 (1.20-3.40) K/uL [place] # (Auto) 0.77 H (0.11-0.59) K/uL Eos # (Auto) 0.13 (0.00-0.50) K/uL Baso # (Auto) 0.07 (0.00-0.20) K/uL Immature Gran # (Auto) 0.04 (0.01-0.20) K/uL Sodium 138 D 129 L (136-145) mmol/L Potassium 3.9 3.6 (3.5-5.1) mmol/L Chloride 106 97 L (98-107) mmol/L Carbon Dioxide 29 26 (21-32) mmol/L Anion Gap 3 6 (3-11) BUN 19 24 H (6-23) mg/dl Creatinine 0.71 D 1.07 (0.6-1.2) mg/dl Est Cr Clr Drug Dosing 135.4 87.7 ml/min eGFR 111.54 68.19 BUN/Creatinine Ratio 26.8 H 22.4 H (10-20) Glucose 72 113 H (70-99(Fasting)) mg/dl Calcium 8.2 L 8.6 (8.6-10.3) mg/dl Total Bilirubin 2.1 H (0.2-1.0) mg/dl AST 153 H (13-39) U/L ALT 78 H (7-52) U/L Alkaline Phosphatase 133 H (34-104) U/L Total Protein 7.3 (6.0-8.3) gm/dl Albumin 3.3 L (3.4-5.0) gm/dl Globulin 4.0 (2.5-4.0) gm/dl Albumin/Globulin Ratio 0.8 L (0.9-2) Urine Color Dark Yellow Urine Appearance Cloudy A (Clear) Urine pH 5.5 (4.5-7.5) Ur Specific Purcell 1.012 (1.000-1.030) Urine Protein Negative (Negative) Urine Glucose (UA) Negative (Negative) Urine Ketones Trace H (Negative) Urine Blood Negative (Negative) Urine Nitrite Negative (Negative) Urine Bilirubin 1+ H (Negative) Urine Urobilinogen Positive H (Negative) Ur Leukocyte Esterase Trace H (Negative) Urine WBC (Auto) 0-5 (0-5) /hpf Urine RBC (Auto) 0-2 (0-2) /hpf U Hyaline Cast (Auto) 11-20 H (0-2) /lpf U Epithel Cells (Auto) >20 H (0-2) /hpf Urine Bacteria (Auto) 1+ H (None Seen) Ur Renal Epithelial Cell Present A (None Presnt) /lpf Calcium Oxalate Crystal Present A (None Prsent) Hyaline Casts P (None Presnt) /lpf Urine Comment Lyme Disease Screen Negative (Negative) Medications Administered Current Inpatient Medications Acetaminophen (Acetaminophen 325 Mg Tab) 650 mg PO Q4H PRN PRN Reason: Mild Pain (Scale 1, 2, 3) Stop: 03/10/25 21:00 Last Admin: 02/08/25 23:47 Dose: 650 mg Al Hydrox/Mg Hydrox/Simethicone (Aluminum/Magnesium Susp 30 Ml Udc) 30 ml PO Q6H PRN PRN Reason: Dyspepsia Stop: 03/10/25 21:00 Ascorbic Acid (Ascorbic Acid 500 Mg Tab) 250 mg PO BID MARCELA Stop: 03/10/25 21:00 Last Admin: 02/09/25 09:13 Dose: 250 mg Famotidine (Famotidine 20 Mg Tab) 20 mg PO DAILY MARCELA Stop: 03/11/25 08:59 Last Admin: 02/09/25 09:13 Dose: 20 mg Ferrous Sulfate (Ferrous Sulfate 325 Mg Tab) 325 mg PO BID MARCELA Stop: 03/10/25 21:00 Last Admin: 02/09/25 09:14 Dose: 325 mg Fluticasone Propionate (Fluticasone Propionate Na Spr 16 Gm Btl) 2 sprays NA DAILY MARCELA Stop: 03/11/25 08:59 Last Admin: 02/09/25 09:14 Dose: 2 sprays Fluticasone/Vilanterol (Fluticasone/Vilanterol 200/25mcg 14 Puffs/Inhaler) 1 puffs INH DAILY [facility] Stop: 03/11/25 08:59 Last Admin: 02/09/25 09:15 Dose: 1 puffs Ampicillin Sodium/Sulbactam Sodium (Unasyn) 3,000 mg in 100 mls @ 200 mls/hr IV Q6H MARCELA; Protocol Stop: 02/15/25 21:59 Last Infusion: 02/09/25 11:36 Dose: Infused Vancomycin HCl 1,500 mg/ (Sodium Chloride) 530 mls @ 200 mls/hr IV Q12H MARCELA Stop: 02/16/25 08:59 Last Admin: 02/09/25 09:45 Dose: 200 mls/hr Levothyroxine Sodium (Levothyroxine Sodium 112 Mcg Tablet) [facility] Stop: 03/11/25 06:29 Last Admin: 02/09/25 06:10 Dose: 112 mcg Losartan Potassium (Losartan Potassium 25 Mg Tab) [facility] Stop: 03/11/25 08:59 Last Admin: 02/09/25 09:15 Dose: 25 mg Magnesium Hydroxide (Magnesium Hydroxide Susp 30 Ml Udc) 30 ml PO Q6H PRN PRN Reason: Constipation Stop: 03/10/25 21:00 Miscellaneous Information (Vancomycin Consult Active) 1 each N/A UD PRN PRN Reason: Consult Stop: 03/11/25 08:07 Morphine Sulfate (Morphine Sulfate 2 Mg/Ml Carp) 2 mg IV Q6H PRN PRN Reason: Severe Pain (Scale 7, 8, 9,10) Stop: 02/22/25 21:00 Last Admin: 02/09/25 04:00 Dose: 2 mg Ondansetron HCl (Ondansetron Inj 2 Mg/Ml 2 Ml Vial) 4 mg IV Q6H PRN PRN Reason: Nausea Stop: 03/10/25 21:00 Oxycodone HCl (Oxycodone Hcl Ir 5 Mg Tab (Immediate Release)) 5 mg PO Q6H PRN PRN Reason: Moderate Pain (Scale 4, 5, 6) Stop: 02/22/25 21:00 Last Admin: 02/09/25 09:47 Dose: 5 mg Pantoprazole Sodium (Pantoprazole 40 Mg Tab) 40 mg PO [facility] Stop: 03/11/25 08:59 Last Admin: 02/09/25 09:15 Dose: 40 mg (1) Cellulitis Site of cellulitis: unspecified site Qualified Code(s): L03.90 - Cellulitis, unspecified
--- NOTE | 2025-02-09 12:59 | Pharmacy Report ---
Pharmacy PK ABX Note - Date of Service February 09, 2025 - Assessment and Plan Assessment 39 year old F receiving vancomycin and Unasyn for treatment of RLE cellulitis. Pertinent microbiologic data includes: Blood cultures x 2 from 02/08 are pending Day # 1 of antimicrobial therapy. Plan Vancomycin * Maintenance dose: 1500 mg IV every 12 hours * Regimen is predicted to achieve target AUC/ANY of 400-600 mg/L.hr * Random level ordered for: 02/11/25 at 0400 Unasyn * 3gm iv q 6 hours. Pharmacy will continue to follow and will adjust dose/frequency as necessary. Thank you. Pharmacy has transitioned to AUC monitoring for vancomycin. AUC/ANY is the pref erred PK/PD target and is associated with decreased risk of nephrotoxicity compared to traditional trough targets.
[2025-02-10 07:36] LABS: Hematocrit (blood only) 30.7 % (37.0-47.0); Hemoglobin 10.3 g/dl (12.0-16.0); Mean Corpuscular Hemoglobin 34.9 pg (25.0-34.0); Mean Corpuscular Hgb Conc 33.6 g/dL (32.0-36.0); Mean Corpuscular Volume 104.1 fL (80.0-100.0); Mean Platelet Volume 12.5 fL (9.4-12.4); Platelet Count 60 K/uL (130-400); RDW Coefficient of Variation 16.1 % (11.5-14.5); RDW Standard Deviation 62.3 fL (36.4-46.3); Red Blood Count 2.95 M/uL (4.20-5.40); White Blood Count 5.01 K/ul (4.8-10.8)
[2025-02-10 07:57] LABS: Calcium 8.1 mg/dl (8.6-10.3); Magnesium 1.7 mg/dl (1.7-2.4); Potassium 3.9 mmol/L (3.5-5.1)
[2025-02-10 08:03] LABS: BUN Creatinine Ratio 20.3 (10-20); Creatinine Clr Calc Pharmacy 150.2 ml/min
--- NOTE | 2025-02-10 10:19 | Hospitalist Progress Note ---
Date of Service February 10, 2025 Assessment & Plan (1) Cellulitis: Plan: Patient is a 39 year old F with a past medical history of Asthma, GERD, Hep C, Hypothyroidism presenting with left lower extremity red rash from [facility]. Symptoms started on initially proximal to the leg and then went distally, not itchy, ++painful and warm. Able to walk on the left leg with difficulty. Denies topical agents, new medications, or known bug bites. Does not feel this is related to shaving. Had fevers, chills, vomiting at home. Fever mildly relieved with ibuprofen. Went to and transferred here. Cellulitis 2/2 rash RLE * Admitted to Med Surg for further management of cellulitis * Ceftriaxone given in the ED * Venous Doppler negative for DVT * Blood culture - no growth in 24 hrs * on admission was started on Unasyn, pt also has hx of MRSA, added vanco for n ow * Pain control- Tylenol mild pain; Oxy moderate pain; Morphine severe pain * Cellulitis marked with permanent marker and improving #Acute hyponatremia * Sodium 129 on admission in setting of dehydration in setting of illness with vomiting * NSS bolus given in ED * Current Na 140 #Hypothyroidism * Continue home levothyroxine #GERD * Continue home regimen of Pepcid and PPI #Asthma * Asymptomatic here * Continue home controller Advair and fluticasone DVT Ppx: SCD's- low PLTs Code status: Full PCP: Dr. Justine Valero Dispo: Med Surg (2) Rash: (3) Acute hyponatremia: (4) GERD (gastroesophageal reflux disease): (5) Hypothyroidism: (6) Asthma: Admission and Anticipated Discharge Date Admission Date: February 08, 2025 Subjective Pt seen in follow up of cellulitis Lying in bed in [facility] Feels cellulitis is getting better, her leg feels less tender and erythematous no chest pain, shortness of breath, abd. pain, n/v Review of Systems Review of Systems: All systems reviewed & are unremarkable except as noted in Subjective Physical Exam Physical Exam: Constitutional: WD/WN, vitals as a marguerite Eyes: PERRL, conjunctiva e normal, anicteri c sclerae ENMT: external ear and n ose normal, oropha rynx normal Neck: supple Respiratory: normal respiratory effort, lungs thomas ar to auscultation Cardiovascular: regular Gastrointestinal ( Abdomen): soft, nontender Musculoskeletal: R LE erythema, po sterior thigh, mamta in, and down to an kle with some claire chiae Skin: warm, dry, erythe ma as above Neurologic: PERRL, EOMI, no fa ce palsy, no dysar thria Psychiatric: A+Ox3, euthymic af fect Results & Data Results & Data Vital Signs (Past 12 Hours) Vital Signs Temp Pulse Resp BP Pulse Ox O2 Del Method 02/10/25 08:08 36.7 C 61 18 127/70 97 Room Air Laboratory Results 02/10/25 Range/Units 07:00 WBC 5.01 (4.8-10.8) K/ul RBC 2.95 L (4.20-5.40) M/uL Hgb 10.3 L (12.0-16.0) g/dl Hct 30.7 L (37.0-47.0) % MCV 104.1 H (80.0-100.0) fL MCH 34.9 H (25.0-34.0) pg MCHC 33.6 (32.0-36.0) g/dL RDW Std Deviation 62.3 H (36.4-46.3) fL RDW Coeff of Fernando 16.1 H (11.5-14.5) % Plt Count 60 L (130-400) K/uL MPV 12.5 H (9.4-12.4) fL Sodium 140 (136-145) mmol/L Potassium 3.9 (3.5-5.1) mmol/L Chloride 107 (98-107) mmol/L Carbon Dioxide 31 (21-32) mmol/L Anion Gap 2 L (3-11) BUN 13 (6-23) mg/dl Creatinine 0.64 (0.6-1.2) mg/dl Est Cr Clr Drug Dosing 150.2 ml/min eGFR 115.93 BUN/Creatinine Ratio 20.3 H (10-20) Glucose 114 H (70-99(Fasting)) mg/dl Calcium 8.1 L (8.6-10.3) mg/dl Phosphorus 3.0 (2.5-4.9) mg/dl Magnesium 1.7 (1.7-2.4) mg/dl Medications Administered Current Inpatient Medications Acetaminophen (Acetaminophen 325 Mg Tab) 650 mg PO Q4H PRN PRN Reason: Mild Pain (Scale 1, 2, 3) Stop: 03/10/25 21:00 Last Admin: 02/08/25 23:47 Dose: 650 mg Al Hydrox/Mg Hydrox/Simethicone (Aluminum/Magnesium Susp 30 Ml Udc) 30 ml PO Q6 H PRN PRN Reason: Dyspepsia Stop: 03/10/25 21:00 Last Admin: 02/09/25 23:12 Dose: 30 ml Ascorbic Acid (Ascorbic Acid 500 Mg Tab) 250 mg PO BID [facility] Stop: 03/10/25 21:00 Last Admin: 02/10/25 08:18 Dose: 250 mg Famotidine (Famotidine 20 Mg Tab) 20 mg PO DAILY [facility] Stop: 03/11/25 08:59 Last Admin: 02/10/25 08:30 Dose: 20 mg Ferrous Sulfate (Ferrous Sulfate 325 Mg Tab) 325 mg PO BID [facility] Stop: 03/10/25 21:00 Last Admin: 02/10/25 08:18 Dose: 325 mg Fluticasone Propionate (Fluticasone Propionate Na Spr 16 Gm Btl) 2 sprays NA DAILY [facility] Stop: 03/11/25 08:59 Last Admin: 02/10/25 08:18 Dose: 2 sprays Fluticasone/Vilanterol (Fluticasone/Vilanterol 200/25mcg 14 Puffs/Inhaler) 1 puffs INH DAILY [facility] Stop: 03/11/25 08:59 Last Admin: 02/10/25 08:19 Dose: 1 puffs Ampicillin Sodium/Sulbactam Sodium (Unasyn) 3,000 mg in 100 mls @ 200 mls/hr IV Q6H [facility]; Protocol Stop: 02/15/25 21:59 Last Infusion: 02/10/25 05:17 Dose: Infused Vancomycin HCl 1,500 mg/ (Sodium Chloride) 530 mls @ 200 mls/hr IV Q12H [facility] Stop: 02/16/25 08:59 Last Admin: 02/10/25 08:30 Dose: 200 mls/hr Levothyroxine Sodium (Levothyroxine Sodium 112 Mcg Tablet) 112 mcg PO DAILYBB [facility] Stop: 03/11/25 06:29 Last Admin: 02/10/25 05:23 Dose: 112 mcg Losartan Potassium (Losartan Potassium 25 Mg Tab) 25 mg PO QAM [facility]ELA Stop: 03/11/25 08:59 Last Admin: 02/10/25 08:17 Dose: 25 mg Magnesium Hydroxide (Magnesium Hydroxide Susp 30 Ml Udc) 30 ml PO Q6H PRN PRN Reason: Constipation Stop: 03/10/25 21:00 Miscellaneous Information (Vancomycin Consult Active) 1 each N/A UD PRN PRN Reason: Consult Stop: 03/11/25 08:07 Morphine Sulfate (Morphine Sulfate 2 Mg/Ml Carp) 2 mg IV Q6H PRN PRN Reason: Severe Pain (Scale 7, 8, 9,10) Stop: 02/22/25 21:00 Last Admin: 02/10/25 04:51 Dose: 2 mg Ondansetron HCl (Ondansetron Inj 2 Mg/Ml 2 Ml Vial) 4 mg IV Q6H PRN PRN Reason: Nausea Stop: 03/10/25 21:00 Oxycodone HCl (Oxycodone Hcl Ir 5 Mg Tab (Immediate Release)) 5 mg PO Q6H PRN PRN Reason: Moderate Pain (Scale 4, 5, 6) Stop: 02/22/25 21:00 Last Admin: 02/09/25 20:31 Dose: 5 mg Pantoprazole Sodium (Pantoprazole 40 Mg Tab) [facility] Stop: 03/11/25 08:59 Last Admin: 02/10/25 08:18 Dose: 40 mg (1) Cellulitis Site of cellulitis: unspecified site Qualified Code(s): L03.90 - Cellulitis, unspecified
[2025-02-11 04:22] LABS: Hematocrit (blood only) 29.4 % (37.0-47.0); Hemoglobin 10.2 g/dl (12.0-16.0); Mean Corpuscular Hemoglobin 35.5 pg (25.0-34.0); Mean Corpuscular Hgb Conc 34.7 g/dL (32.0-36.0); Mean Corpuscular Volume 102.4 fL (80.0-100.0); Mean Platelet Volume 11.8 fL (9.4-12.4); Platelet Count 65 K/uL (130-400); RDW Coefficient of Variation 15.9 % (11.5-14.5); RDW Standard Deviation 59.7 fL (36.4-46.3); Red Blood Count 2.87 M/uL (4.20-5.40); White Blood Count 5.24 K/ul (4.8-10.8)
[2025-02-11 04:36] LABS: BUN Creatinine Ratio 18.6 (10-20); Calcium 8.1 mg/dl (8.6-10.3); Magnesium 1.6 mg/dl (1.7-2.4); Phosphorus 2.8 mg/dl (2.5-4.9); Potassium 3.8 mmol/L (3.5-5.1)
--- NOTE | 2025-02-11 08:17 | Pharmacy Report ---
Pharmacy PK ABX Note - Date of Service February 11, 2025 - Assessment and Plan Assessment 02/11 * Vancomycin level this AM was ~14 mcg/ml - current dosing associated with goal AUC/ANY therefore will continue current regimen. Blood cultures negative. 02/09: * 39 year old F receiving vancomycin and Unasyn for treatment of RLE cellulitis. * Pertinent microbiologic data includes: Blood cultures x 2 from 02/08 are pending Plan Vancomycin * Continue current dosing. Unasyn * 3gm iv q 6 hours. Pharmacy will continue to follow and will adjust dose/frequency as necessary. Thank you. Pharmacy has transitioned to AUC monitoring for vancomycin. AUC/ANY is the p referred PK/PD target and is associated with decreased risk of nephrotoxicity compared to traditional trough targets.
--- NOTE | 2025-02-11 12:13 | Hospitalist Progress Note ---
Date of Service February 11, 2025 Assessment & Plan (1) Cellulitis: (2) Rash: (3) Acute hyponatremia: (4) GERD (gastroesophageal reflux disease): (5) Hypothyroidism: (6) Asthma: Plan Patient is a 39 year old F with a past medical history of Asthma, GERD, Hep C, Hypothyroidism presenting with left lower extremity red rash from [facility]. Symptoms started on initially proximal to the leg and then went distally, not itchy, ++painful and warm. Able to walk on the left leg with difficulty. Denies topical agents, new medications, or known bug bites. Does not feel this is related to shaving. Had fevers, chills, vomiting at home. Fever mildly relieved with ibuprofen. Went to and transferred here. Cellulitis 2/2 rash RLE Ceftriaxone given in the ED Venous Doppler negative for DVT Blood culture - no growth in 24 hrs on admission was started on Unasyn, pt also has hx of MRSA, added vanco for now Pain control- Tylenol mild pain; Oxy moderate pain; Morphine severe pain Cellulitis marked with permanent marker and improving 02/11- vanc discontinued as pt became itchy. Switched to po doxycycline. Given rash now spreading will keep IV Unasyn and re-assess in the AM. Acute hyponatremia Sodium 129 on admission in setting of dehydration in setting of illness with vomiting NSS bolus given in ED Current Na stable Hypothyroidism Continue home levothyroxine GERD Continue home regimen of Pepcid and PPI Asthma Asymptomatic here Continue home controller Advair and fluticasone DVT Ppx: SCD's- low PLTs Code status: Full PCP: Dr. Justine Valero Dispo: Med Surg Admission and Anticipated Discharge Date Admission Date: February 08, 2025 Subjective Pt was seen in the AM Stated that she was itchy since starting the vancomycin Her rash had spread beyond the confines of the outlines and was very itchy Review of Systems Review of Systems: All systems reviewed & are unremarkable except as noted in Subjective Physical Exam Physical Exam: General: Alert, oriented. No acute distress Skin: RLE with erythematous eruption HEENT: NC/AT CV: RRR Resp: Breath sounds clear bilaterally, no increased effort of breathing Abdomen: Soft, nontender Extremities: edema in lower extremities bilaterally, RLE with erythematous eruption Results & Data Results & Data Vital Signs (Past 12 Hours) Vital Signs Temp Pulse Resp BP Pulse Ox O2 Del Method 06/25/25 07:22 36.7 C 59 L 16 122/69 96 Room Air (1) Cellulitis Site of cellulitis: unspecified site Qualified Code(s): L03.90 - Cellulitis, unspecified
[2025-02-12 07:56] LABS: Basophils # (auto) 0.04 K/uL (0.00-0.20); Basophils % (auto) 0.6 %; Eosinophils # (auto) 0.18 K/uL (0.00-0.50); Eosinophils % (auto) 2.9 %; Hemoglobin 10.3 g/dl (12.0-16.0); Immature Granulocytes # (auto) 0.04 K/uL (0.01-0.20); Immature Granulocytes % (auto) 0.6 %; Lymphocytes # (auto) 1.42 K/uL (1.20-3.40); Lymphocytes % (auto) 22.7 %; Mean Corpuscular Hemoglobin 35.6 pg (25.0-34.0); Mean Corpuscular Hgb Conc 34.3 g/dL (32.0-36.0); Mean Corpuscular Volume 103.8 fL (80.0-100.0); Mean Platelet Volume 11.8 fL (9.4-12.4); Monocytes % (auto) 12.8 %; Neutrophils # (auto) 3.77 K/uL (1.40-6.50); Neutrophils % (auto) 60.4 %; Platelet Count 74 K/uL (130-400); RDW Coefficient of Variation 15.9 % (11.5-14.5); RDW Standard Deviation 60.7 fL (36.4-46.3); Red Blood Count 2.89 M/uL (4.20-5.40); White Blood Count 6.25 K/ul (4.8-10.8)
[2025-02-12 08:11] LABS: Albumin Globulin Ratio 0.8 (0.9-2); Albumin Level 2.8 gm/dl (3.4-5.0); BUN Creatinine Ratio 18.2 (10-20); Bilirubin,Total 2.1 mg/dl (0.2-1.0); Calcium 8.7 mg/dl (8.6-10.3); Creatinine Clr Calc Pharmacy 174.8 ml/min; Globulin 3.7 gm/dl (2.5-4.0); Magnesium 1.5 mg/dl (1.7-2.4); Phosphorus 3.5 mg/dl (2.5-4.9); Potassium 4.1 mmol/L (3.5-5.1); Total Protein 6.5 gm/dl (6.0-8.3)
--- NOTE | 2025-02-12 13:42 | Hospitalist Progress Note ---
Date of Service February 12, 2025 Assessment & Plan (1) Cellulitis: (2) Rash: (3) Acute hyponatremia: (4) GERD (gastroesophageal reflux disease): (5) Hypothyroidism: (6) Asthma: Plan Patient is a 39 year old F with a past medical history of Asthma, GERD, Hep C, Hypothyroidism presenting with left lower extremity red rash from [facility]. Symptoms started on initially proximal to the leg and then went distally, not itchy, ++painful and warm. Able to walk on the left leg with difficulty. Denies topical agents, new medications, or known bug bites. Does not feel this is related to shaving. Had fevers, chills, vomiting at home. Fever mildly relieved with ibuprofen. Went to and transferred here. Cellulitis 2/2 rash RLE Edema Ceftriaxone given in the ED Venous Doppler negative for DVT Blood culture - no growth in 24 hrs on admission was started on Unasyn, pt also has hx of MRSA, added vanco for now Pain control- Tylenol mild pain; Oxy moderate pain; Morphine severe pain Cellulitis marked with permanent marker and improving 02/11- vanc discontinued as pt became itchy. Switched to po doxycycline. Given rash now spreading will keep IV Unasyn and re-assess in the AM. 02/12- started on IV lasix 20mg Thrombocytopenia Hx of Alcohol abuse Elevated Liver Enzymes States she has cut back on alcohol use Thrombocytopenia and elevated LFTs likely in this setting Also notes hx of hep C due for treatment in [facility] at risk protocol Continue to monitor labs Acute hyponatremia Sodium 129 on admission in setting of dehydration in setting of illness with vomiting NSS bolus given in ED Current Na stable Hypothyroidism Continue home levothyroxine GERD Continue home regimen of Pepcid and PPI Asthma Asymptomatic here Continue home controller Advair and fluticasone Mood Resume home lexapro DVT Ppx: SCD's- low PLTs Code status: Full PCP: Dr. Justine Valero Dispo: Med Surg Admission and Anticipated Discharge Date Admission Date: February 08, 2025 Subjective Pt was seen in the AM wanted questions answered concerning her lab work notes no more itching, rash and erythema slightly improved today Wants to shower States she takes lexapro at home and wanted that restarted. Review of Systems Review of Systems: All systems reviewed & are unremarkable except as noted in Subjective Physical Exam Physical Exam: General: Alert, oriented. No acute distress Skin: RLE with erythematous eruption HEENT: NC/AT CV: RRR Resp: Breath sounds clear bilaterally, no increased effort of breathing Abdomen: Soft, nontender Extremities: edema in lower extremities bilaterally, RLE with erythematous eruption Results & Data Results & Data Vital Signs (Past 12 Hours) Vital Signs Temp Pulse Resp BP Pulse Ox O2 Del Method 02/12/25 09:08 66 18 123/66 99 Room Air 02/12/25 07:23 36.4 C L 62 16 125/76 96 Room Air (1) Cellulitis Site of cellulitis: unspecified site Qualified Code(s): L03.90 - Cellulitis, unspecified
[2025-02-12 19:16] VITALS: TEMP 97.9
[2025-02-13 08:33] VITALS: RESP 16; O2SAT 96
[2025-02-13 08:39] LABS: Basophils # (auto) 0.06 K/uL (0.00-0.20); Basophils % (auto) 0.8 %; Eosinophils # (auto) 0.14 K/uL (0.00-0.50); Hematocrit (blood only) 29.8 % (37.0-47.0); Hemoglobin 10.4 g/dl (12.0-16.0); Immature Granulocytes # (auto) 0.06 K/uL (0.01-0.20); Immature Granulocytes % (auto) 0.8 %; Lymphocytes # (auto) 1.69 K/uL (1.20-3.40); Lymphocytes % (auto) 23.7 %; Mean Corpuscular Hemoglobin 35.5 pg (25.0-34.0); Mean Corpuscular Hgb Conc 34.9 g/dL (32.0-36.0); Mean Corpuscular Volume 101.7 fL (80.0-100.0); Monocytes # (auto) 1.19 K/uL (0.11-0.59); Monocytes % (auto) 16.7 %; Neutrophils # (auto) 3.99 K/uL (1.40-6.50); Platelet Count 88 K/uL (130-400); RDW Coefficient of Variation 16.5 % (11.5-14.5); RDW Standard Deviation 61.8 fL (36.4-46.3); Red Blood Count 2.93 M/uL (4.20-5.40); White Blood Count 7.13 K/ul (4.8-10.8)
[2025-02-13 09:02] LABS: Albumin Globulin Ratio 0.8 (0.9-2); Albumin Level 2.9 gm/dl (3.4-5.0); Bilirubin,Total 2.1 mg/dl (0.2-1.0); Creatinine Clr Calc Pharmacy 160.2 ml/min; Globulin 3.8 gm/dl (2.5-4.0); Magnesium 1.5 mg/dl (1.7-2.4); Phosphorus 3.7 mg/dl (2.5-4.9); Potassium 4.1 mmol/L (3.5-5.1); Total Protein 6.7 gm/dl (6.0-8.3)
--- NOTE | 2025-02-13 14:03 | Discharge Summary ---
Discharge Summary Date of Service February 13, 2025 Principal Dx & Hospital Course #1 = Principal Diagnosis (1) Cellulitis: (2) Rash: (3) Acute hyponatremia: (4) GERD (gastroesophageal reflux disease): (5) Hypothyroidism: (6) Asthma: Plan Patient is a 39 year old F with a past medical history of Asthma, GERD, Hep C, Hypothyroidism presenting with left lower extremity red rash from [facility]. Symptoms started on initially proximal to the leg and then went distally, not itchy, ++painful and warm. Able to walk on the left leg with difficulty. Denies topical agents, new medications, or known bug bites. Does not feel this is related to shaving. Had fevers, chills, vomiting at home. Fever mildly relieved with ibuprofen. Went to and transferred here. Cellulitis 2/2 rash RLE Edema Ceftriaxone given in the ED Venous Doppler negative for DVT Blood culture - no growth to date on admission was started on Unasyn, pt also has hx of MRSA,was also on vanco. Vancomycin subsequently discontinued due to itching and progression of erythema. Transitioned to po doxycycline and Augmentin for discharge for an additional 4 days with probiotic. Pain control- Tylenol mild pain; Oxy moderate pain; Morphine severe pain. Pt stating she had severe pain in the leg, getting morphine regularly. On discharge prn OTC pain meds and discharged with 5 doses of oxycodone 5mg daily PRN for severe pain only. Cellulitis marked with permanent marker and improving One dose of IV Lasix 20mg, and discharged home with po lasix 20mg daily. Discharged with lasix- will need bmp for electrolyte and kidney function monitoring Close PCP followup after discharge, Thrombocytopenia Hx of Alcohol abuse Elevated Liver Enzymes States she has cut back on alcohol use Thrombocytopenia and elevated LFTs likely in this setting Also notes hx of hep C due for treatment in [facility] at risk protocol Continue to monitor labs closely after discharge and ensure followup. PCP followup after discharge. Acute hyponatremia Sodium 129 on admission in setting of dehydration in setting of illness with vomiting NSS bolus given in ED Current Na stable- 137 on discharge Hypothyroidism Continue home levothyroxine GERD Continue home regimen of Pepcid and PPI Asthma Asymptomatic here Continue home controller Advair and fluticasone Mood Resume home lexapro Notes For Next Care Provider Follow hepatic enzymes, ensure followup Discharged with lasix- will need bmp for electrolyte and kidney function monitoring Medication Changes From Visit Augmentin and doxycycline for 4 more days with probiotic Lasix 20mg daily 5 doses of PRN oxycodone 5mg Renewed sumatriptan Admission HPI Per Admitting Provider Patient is a 39 year old F with a past medical history of Asthma, GERD, Hep C, Hypothyroidism presenting with right lower extremity red rash from [facility]. Symptoms started on initially proximal to the leg and then went distally, not itchy, ++painful and warm. Able to walk on the left leg with difficulty. Denies topical agents, new medications, or known bug bites. Does not feel this is related to shaving. Had fevers, chills, vomiting at home. Fever mildly relieved with ibuprofen. Went to today and transferred here. Denies weight loss, weakness, headache, cognitive changes, vision/hearing changes, chest pain, SOB, swelling, difficulty breathing, urinary concerns, diarrhea, bleeding, bruising. In the emergency department, patient was hemodynamically stable, afebrile, had a slightly elevated WBC 11.98 and no signs of sepsis. Lyme negative. Ceftriaxone initiated in the ED. Dehydrated with an elevated BUN 24 and Cr 1.07 (increased from prev assessment 0.68 on 10/2024); hyponatremic at 129--1L NSS fluid bolus given. +transaminitis noted in today's labs, possibly from current illness; however, patient does have a history of Hep C. Possible UTI- UA with trace leukocyte esterase. Urine culture pending. Venous Doppler showing No deep venous thrombosis of the right lower extremity. History obtained primarily from the patient and via hospitalization record. Admission Exam Per Admitting Provider VITALS: Reviewed. GEN: Healthy appearing, well-developed, NAD. PSYCH: Good Judgment. AOx3. Normal memory, mood, and affect. HEENT -Head: NC/AT; -Eyes: PERRL, EOMI. No discharge or redness; -Ears: External ears are normal. -Nose: Normal nares. -Mouth and throat: MMM. Normal gums, mucosa, palate,. NECK: Supple, with no masses. CV: + systolic murmur to LSB, rhythm regular, pulses strong throughout , LUNGS: CTAB, no w/r/c. ABD: Soft, NT/ND, NBS, no masses or organomegaly. : N/A SKIN: LLE + erythema from top of thigh to ankle, no open areas, warm and tender to touch, swollen MSK: No deformities, Normal gait. EXT: No clubbing, cyanosis, or edema. NEURO: Ambulating with some limitations. Normal muscle strength and tone. No focal deficits. Discharge Exam General: Alert, oriented. No acute distress Skin: RLE with improved erythematous eruption HEENT: NC/AT CV: RRR Resp: Breath sounds clear bilaterally, no increased effort of breathing Abdomen: Soft, nontender Extremities: edema in lower extremities bilaterally, RLE with erythematous eruption Updated Medication List Medication Instructions Recorded Confirmed Type famotidine 20 mg tablet 20 mg PO DAILY 03/11/24 02/08/25 History fluticasone propionate 230 2 puff inhalation BID 03/11/24 02/08/25 History mcg-salmeterol 21 mcg/actuation HFA inhaler (Advair HFA) fluticasone propionate 50 2 spray intranasal DAILY 03/11/24 02/08/25 History mcg/actuation nasal spray,suspension (Flonase Allergy Relief) iron,carbonyl 65 mg-vitamin C 125 1 tab PO BID 03/11/24 02/08/25 History mg tablet,delayed release (Vitron-C) montelukast 10 mg tablet 10 mg PO HS 03/11/24 02/08/25 History omeprazole 40 mg capsule,delayed 40 mg PO QAM 03/11/24 02/08/25 History release losartan 25 mg tablet 25 mg PO QAM #30 tabs 03/13/24 02/08/25 Rx levothyroxine 112 mcg tablet 112 mcg PO DAILYBB 02/08/25 02/08/25 History escitalopram oxalate 10 mg tablet 10 mg PO DAILY 02/12/25 02/12/25 History Saccharomyces boulardii 250 mg 250 mg PO DAILY #10 caps 02/13/25 Rx capsule (Florastor) amoxicillin 875 mg-potassium 1 tab PO BID #8 tabs 02/13/25 Rx clavulanate 125 mg tablet doxycycline hyclate 100 mg capsule 100 mg PO BID #8 caps 02/13/25 Rx furosemide 20 mg tablet (Lasix) 20 mg PO DAILY #30 tabs 02/13/25 Rx magnesium chloride 64 mg 64 mg PO BID #60 tabs 02/13/25 Rx (magnesium chloride) tablet,delayed release (Mag 64) oxycodone 5 mg tablet 5 mg PO DAILY PRN severe pain 02/13/25 Rx (scale score 7-10) #5 tabs sumatriptan succinate 100 mg tablet 0 mg (0 x 100 mg) PO .COMPLEX #10 02/13/25 Rx tabs Hospital Stay Data Consultations 02/08/25 17:40 ED Decision to Admit Stat Diagnostic Imagining Performed 02/08/25 16:29 US venous doppler LE RT Stat Venous Doppler Study 02/08/25 16:29 EXAM: US Duplex Right Lower Extremity Veins INDICATION: Swelling TECHNIQUE: Real-time duplex ultrasound scan of the right lower extremity veins integrating B-mode two-dimensional vascular structure, Doppler spectral analysis, color flow Doppler imaging and compression. COMPARISON: 5 FINDINGS: Deep veins: No DVT in the visualized common femoral, femoral or popliteal veins. The veins demonstrate normal color flow, are normally compressible, with normal phasic flow and/or augmentation response. Superficial veins: No abnormality noted. No thrombus in the visualized great saphenous vein. Soft tissues: Diffuse subcutaneous edema noted. No fluid collection. IMPRESSION: No deep venous thrombosis of the right lower extremity. ACT 112: N/A Electronically signed by Gloria Devine 02-08-2025 5:28 PM Discharge Instructions Given to Patient (Per Discharging Provider) Crystal, You are being discharged home. Please continue with the antibiotics for 4 more days with the probiotic prescribed. Please continue with over the counter pain medications as needed. A few days worth of oxycodone was provided to you to help NEEDED for SEVERE PAIN only. Please continue with the lasix to help with the swelling in your legs. Please keep close follow up with your primary care provider after discharge. Please do not hesitate to come back to the emergency room if your symptoms worsen or return. It was a pleasure taking care of you while you were here. Total Time Total Time Spent Total Time Spent (In Minutes): 60
[2025-02-13 14:19] VITALS: BP 129/80; PULSE 64
== END 2025-02-13 15:43 | disposition home or self-care (01) | DRG 603 ==
LOC: ED 16:13 → SUATTDRO 19:03 → 3N 19:03

== ENCOUNTER 2025-07-22 19:19 | Inpatient (IN) ==
[2025-07-22 20:11] LABS: Appearance Urine Clear (Clear); Glucose Urine UA Negative (Negative)
[2025-07-22 20:14] LABS: Hematocrit (blood only) 33.5 % (37.0-47.0); Hemoglobin 11.6 g/dL (12.0-16.0); Mean Corpuscular Hemoglobin 36.4 pg (25.0-34.0); Mean Corpuscular Volume 105.0 fL (80.0-100.0); Platelet Count 61 K/uL (130-400); RDW Standard Deviation 60.1 fL (36.4-46.3); Red Blood Count 3.19 M/uL (4.20-5.40); White Blood Count 5.68 K/ul (4.8-10.8)
[2025-07-22 20:31] LABS: Alanine Aminotransferase 77.0 U/L (7-52); Albumin Globulin Ratio 0.7 (0.9-2); Albumin Level 3.3 gm/dl (3.4-5.0); Alkaline Phosphatase 124.0 U/L (34-104); Anion Gap 5.0 (3-11); Bilirubin,Total 2.1 mg/dl (0.2-1.0); Blood Urea Nitrogen 15.0 mg/dl (6-23); Calcium 8.8 mg/dl (8.6-10.3); Carbon Dioxide 29.0 mmol/L (21-32); Chloride 109.0 mmol/L (98-107); Creatinine Clr Calc Pharmacy 111.0 ml/min; Globulin 4.6 gm/dl (2.5-4.0); Glucose 126.0 mg/dl (70-99(Fasting)); Potassium 4.1 mmol/L (3.5-5.1); Sodium 143.0 mmol/L (136-145); Total Protein 7.9 gm/dl (6.0-8.3)
[2025-07-22 20:39] LABS: INR 1.5 (0.9-1.1); Partial Thromboplastin Time 31 Seconds (21-31); Prothrombin Time 15.1 Seconds (9.0-12.0)
--- NOTE | 2025-07-22 20:50 | Emergency Department Note ---
Impression & Plan Hematemesis, Liver disease, Alcohol abuse, Thrombocytopenia, Coagulopathy, Elevated liver enzymes ED Provider Note NAME: LATRICE WILLS AGE: 40 SEX: F : 1985 ARRIVES VIA: Walk-In INFORMANT: [Patient][sig other] ED PROVIDER(S): [Shimon Jacobsen MD] CHIEF COMPLAINT: Vomiting HISTORY OF PRESENT ILLNESS: The patient is a 40-year-old female who has had hematemesis for the last 3 days. She started out with a cough and cold and what she thought was a flulike illness but now things have progressed to nausea and vomiting. She has had weakness. She denies any blood in the stool or black tarry stool. The patient has known liver disease, she has hepatitis C. She states her blood does not clot well. The patient denies ever having hematemesis previously. She has no history of varices. As per the patient's significant other, patient drinks alcohol heavily. PMHx/PSHx/Social Hx: See Below PHYSICAL EXAM: GENERAL: Patient is in no acute distress. HEENT: No acute trauma, normocephalic atraumatic, mucous membranes moist, no nasal congestion. NECK: No stridor, no adenopathy, no meningismus, trachea is midline. LUNGS: Clear to auscultation bilaterally, no wheeze, no rhonchi, breath sounds equal. HEART: 2/6 systolic murmur, regular rate and rhythm. ABDOMEN: Soft, mildly diffusely tender, no distention. EXTREMITIES: No cyanosis, full range of motion of all the joints without pain or difficulty. NEUROLOGIC: Oriented x 3, no acute motor or sensory deficits, no focal weakness. Seems quite somnolent. SKIN: No jaundice, no diaphoresis. DIFFERENTIAL DIAGNOSIS: Esophageal varices, gastritis, ulcer, anemia, dehydration, viral illness, among others. EMERGENCY DEPARTMENT PROCEDURES: MEDICAL DECISION MAKING: There is no leukocytosis. A mild anemia was seen with a hemoglobin of 11.6. Platelet count was low consistent with her history of liver disease. There was elevation of the INR, consistent with her liver disease. No renal failure or significant electrolyte abnormality. Liver enzymes were elevated, consistent with her liver disease. Lipase was slightly high but not high enough to diagnose pancreatitis. Looking back at previous testing, the patient's lipase does seem elevated chronically. Urinalysis did not show infection. Alcohol level was elevated at 286, consistent with alcohol abuse. COVID, influenza and RSV test were negative. Chest x-ray did not show pneumonia or CHF. Abdominal and pelvis CT showed some gallstones and some potential issues with gastric emptying, there was no bowel obstruction or findings of acute cholecystitis. On exam, the patient appeared somewhat somnolent, she was not toxic or febrile. The patient received IV saline, IV Phenergan, IV Protonix, IV Zofran, IV Pepcid. The patient presents with hematemesis. She has known liver disease and does drink alcohol heavily. Certainly, gastritis, ulcer or even esophageal varices are considerations as the cause of the hematemesis. Given her history and complaints, admission is warranted. She requires monitoring, hemoglobin trending, hydration. She may benefit from a GI consult/endoscopy during her hospitalization. I did speak with the patient and her significant other. I spoke with case management, the on-call hospitalist was consulted. Prior/Outside records/notes reviewed: None Imaging/x-ray results per my interpretation: Chest x-ray does not show mediastinal widening, pneumonia or pneumothorax. There is no free air. Chronic Medical/Social conditions affecting care: History of hepatitis C. Care/Management discussed with: Case management and the on-call hospitalist. Level of care consideration(s): After review of the information above and other included data: --I believe the patient requires escalation of care to admission DISPOSITION: Admission Past Med/Surg History Problem List Elevated liver enzymes (Acute) Coagulopathy (Acute) Thrombocytopenia (Acute) Alcohol abuse (Acute) Liver disease (Acute) Hematemesis (Acute) Leg pain Thrombocytopenia (Acute) Acute hyponatremia (Acute) Rash (Acute) Cellulitis (Acute) Sprain and strain of wrist (Acute) Hypertension (Acute) Chest pain (Acute) Medical History Asthma GERD (gastroesophageal reflux disease) Hepatitis C Hypothyroidism Family History Other Family history non-contributory Social History Smoking Status: Current every day smoker Tobacco Type: Cigarettes Second Hand Exposure: No; Do You Dip or Chew Tobacco: No; Hx Alcohol Use: Yes Alcohol type: beer Hx Substance Use: Yes Last Used Substance: Days (ago) Preferred Language: Albanian Communication Ability: Effective Speech Correction Consultant Required: No Beliefs That Will Affect Care: None Current Living Situation: Significant Other Current Living Situation Comment: lives with boyfriend and his family Feels Safe at Home: Yes Assistive Devices: None Allergies Allergies Allergy/AdvReac Type Severity Reaction Status Date / Time vancomycin Allergy Intermediate Hives Verified 07/22/25 20:46 sulfamethoxazole Allergy Mild YEAST Verified 07/22/25 20:46 [From Bactrim] INFECTION/ITCHING trimethoprim [From Bactrim] Allergy Mild YEAST Verified 07/22/25 20:46 INFECTION/ITCHING Home Meds Home Medications Medication Instructions Recorded Confirmed fluticasone propionate 230 2 puff inhalation BID 03/11/24 07/22/25 mcg-salmeterol 21 mcg/actuation HFA inhaler (Advair HFA) iron,carbonyl 65 mg-vitamin C 125 1 tab PO BID 03/11/24 07/22/25 mg tablet,delayed release (Vitron-C) albuterol sulfate 90 mcg/actuation 2 puff inhalation Q6H PRN 04/26/25 07/22/25 aerosol inhaler Shortness Of Breath Or Wheezing escitalopram oxalate 10 mg tablet 10 mg PO QAM 04/26/25 07/22/25 famotidine 20 mg tablet 20 mg PO BID 04/26/25 07/22/25 fluticasone propionate 50 2 spray intranasal DAILY 04/26/25 07/22/25 mcg/actuation nasal spray,suspension losartan 25 mg tablet 25 mg PO QAM 04/26/25 07/22/25 montelukast 10 mg tablet 10 mg PO HS 04/26/25 07/22/25 omeprazole 40 mg capsule,delayed 40 mg PO DAILYBB 04/26/25 07/22/25 release sofosbuvir 400 mg-velpatasvir 100 1 tab PO HS 04/26/25 07/22/25 mg tablet docusate sodium 100 mg capsule 100 mg PO BID 06/10/25 07/22/25 levothyroxine 100 mcg tablet 100 mcg PO DAILYBB 06/10/25 07/22/25 ondansetron 4 mg disintegrating 4 mg PO Q8H PRN NAUSEA/VOMITING 06/10/25 07/22/25 tablet propranolol 20 mg tablet 20 mg PO BID 06/10/25 07/22/25 Previous Rx's Medication Instructions Recorded magnesium chloride 64 mg 64 mg PO BID #60 tabs 02/13/25 (magnesium chloride) tablet,delayed release (Mag 64) Results & Data (ED) Vital Signs Vital Signs - 24 hr 07/22/25 19:24 07/22/25 20:30 07/22/25 21:03 Temperature 35.9 C L Temperature Source Temporal Artery Scan Pulse Rate 63 65 Pulse Rate [Apical] 64 Respiratory Rate 20 18 Respiratory Effort / Characteristics Non-Labored Spontaneous Respiratory Depth Normal Respiratory Pattern Regular Blood Pressure 120/78 Blood Pressure [Left Arm] 103/53 L Blood Pressure Mean 92 Blood Pressure Mean [Left Arm] 69 Blood Pressure Position Sitting Pulse Oximetry 95 98 Oxygen Delivery Method Room Air Room Air Sepsis Recent Fever Within 48 Hours No Sepsis New/Unexplained Change in Mental Status No Sepsis Action Taken by Nursing No Action Required Home Medications Current Medication List: was personally reviewed by me Laboratory Data Attestation: I reviewed the patient's lab results. 07/22/25 19:45 07/22/25 19:45 Lab Results 07/22/25 07/22/25 07/22/25 Range/Units 19:45 19:52 21:01 WBC 5.68 (4.8-10.8) K/ul RBC 3.19 L (4.20-5.40) M/uL Hgb 11.6 L (12.0-16.0) g/dL Hct 33.5 L (37.0-47.0) % MCV 105.0 H (80.0-100.0) fL MCH 36.4 H (25.0-34.0) pg MCHC 34.6 (32.0-36.0) g/dL RDW Std Deviation 60.1 H (36.4-46.3) fL RDW Coeff of Fernando 15.9 H (11.5-14.5) % Plt Count 61 L (130-400) K/uL MPV 12.4 (9.4-12.4) fL PT 15.1 H (9.0-12.0) Seconds INR 1.5 H (0.9-1.1) APTT 31 (21-31) Seconds PTT Ratio 1.1 Sodium 143 (136-145) mmol/L Potassium 4.1 (3.5-5.1) mmol/L Chloride 109 H (98-107) mmol/L Carbon Dioxide 29 (21-32) mmol/L Anion Gap 5 (3-11) BUN 15 (6-23) mg/dl Creatinine 0.87 (0.6-1.2) mg/dl Est Cr Clr Drug Dosing 111.0 ml/min eGFR 86.86 BUN/Creatinine Ratio 17.2 (10-20) Glucose 126 H (70-99(Fasting)) mg/dl Calcium 8.8 (8.6-10.3) mg/dl Magnesium 1.9 (1.7-2.4) mg/dl Total Bilirubin 2.1 H (0.2-1.0) mg/dl AST 191 H (13-39) U/L ALT 77 H (7-52) U/L Alkaline Phosphatase 124 H (34-104) U/L Total Protein 7.9 (6.0-8.3) gm/dl Albumin 3.3 L (3.4-5.0) gm/dl Globulin 4.6 H (2.5-4.0) gm/dl Albumin/Globulin Ratio 0.7 L (0.9-2) Lipase 165 H (11-82) U/L TSH 1.036 (0.300-4.500) uIu/ml Urine Color Yellow Urine Appearance Clear (Clear) Urine pH 7.0 (4.5-7.5) Ur Specific [place] 1.010 (1.000-1.030) Urine Protein Negative (Negative) Urine Glucose (UA) Negative (Negative) Urine Ketones Negative (Negative) Urine Blood Negative (Negative) Urine Nitrite Negative (Negative) Urine Bilirubin Negative (Negative) Urine Urobilinogen Negative (Negative) Ur Leukocyte Esterase Negative (Negative) Urine Comment Ethyl Alcohol mg/dL (<10.0) mg/dl SARS-CoV-2 (PCR) NEGATIVE (Negative) Influenza Type A (PCR) Negative (Neg) Influenza Type B (PCR) Negative (Neg) RSV (RT-PCR) Negative (Neg) 07/22/25 Range/Units 22:28 WBC (4.8-10.8) K/ul RBC (4.20-5.40) M/uL Hgb (12.0-16.0) g/dL Hct (37.0-47.0) % MCV (80.0-100.0) fL MCH (25.0-34.0) pg MCHC (32.0-36.0) g/dL RDW Std Deviation (36.4-46.3) fL RDW Coeff of Fernando (11.5-14.5) % Plt Count (130-400) K/uL MPV (9.4-12.4) fL PT (9.0-12.0) Seconds INR (0.9-1.1) APTT (21-31) Seconds PTT Ratio Sodium (136-145) mmol/L Potassium (3.5-5.1) mmol/L Chloride (98-107) mmol/L Carbon Dioxide (21-32) mmol/L Anion Gap (3-11) BUN (6-23) mg/dl Creatinine (0.6-1.2) mg/dl Est Cr Clr Drug Dosing ml/min eGFR BUN/Creatinine Ratio (10-20) Glucose (70-99(Fasting)) mg/dl Calcium (8.6-10.3) mg/dl Magnesium (1.7-2.4) mg/dl Total Bilirubin (0.2-1.0) mg/dl AST (13-39) U/L ALT (7-52) U/L Alkaline Phosphatase (34-104) U/L Total Protein (6.0-8.3) gm/dl Albumin (3.4-5.0) gm/dl Globulin (2.5-4.0) gm/dl Albumin/Globulin Ratio (0.9-2) Lipase (11-82) U/L TSH (0.300-4.500) uIu/ml Urine Color Urine Appearance (Clear) Urine pH (4.5-7.5) Ur Specific [place] (1.000-1.030) Urine Protein (Negative) Urine Glucose (UA) (Negative) Urine Ketones (Negative) Urine Blood (Negative) Urine Nitrite (Negative) Urine Bilirubin (Negative) Urine Urobilinogen (Negative) Ur Leukocyte Esterase (Negative) Urine Comment Ethyl Alcohol mg/dL 286.3 H (<10.0) mg/dl SARS-CoV-2 (PCR) (Negative) Influenza Type A (PCR) (Neg) Influenza Type B (PCR) (Neg) RSV (RT-PCR) (Neg) Administered Medications Discontinued Medications Pantoprazole Sodium 80 mg/ (Dextrose) 120 mls @ 400 mls/hr IV NOW ONE Stop: 07/22/25 20:47 Last Infusion: 07/22/25 21:38 Dose: Infused Documented By: [id number] Admin: 07/22/25 20:54 Dose: 400 mls/hr Documented By: [id number] Famotidine (Pepcid 20mg Iv Push) 20 mg in 5 mls @ 2.5 mls/min IV NOW STA Stop: 07/22/25 20:31 Last Admin: 07/22/25 20:54 Dose: 2.5 mls/min Documented By: [id number] Sodium Chloride (Nss) 1,000 mls @ 999 mls/hr IV .Q1H1M ONE Stop: 07/22/25 21:30 Last Infusion: 07/22/25 22:39 Dose: Infused Documented By: [id number] Admin: 07/22/25 20:55 Dose: 999 mls/hr Documented By: [id number] Thiamine HCl 100 mg/ Syringe 10 mls @ 2 mls/min IV NOW STA Stop: 07/22/25 23:17 Last Admin: 07/23/25 00:13 Dose: 2 mls/min Documented By: [email or web address] Ioversol (Optiray 320 100ml) 90 ml IV ONCE ONE Stop: 07/22/25 21:43 Last Admin: 07/22/25 21:43 Dose: 90 ml Documented By: [email or web address] Ondansetron HCl (Ondansetron Inj 2 Mg/Ml 2 Ml Vial) 4 mg IV NOW STA Stop: 07/22/25 20:31 Last Admin: 07/22/25 20:54 Dose: 4 mg Documented By: [id number] Imaging Data Radiologist's Impression: Abdomen/Pelvis CT 07/22/25 20:43 Exam(s): CT ABDOMEN + PELVIS With Contrast IV Amt: 90ml optiray 320 EXAM: CT Abdomen and Pelvis With Intravenous Contrast CLINICAL HISTORY: Reason for exam: abd pain, vomiting. TECHNIQUE: Axial computed tomography images of the abdomen and pelvis with intravenous contrast. CTDI is 26.47 mGy and DLP is 1305.24 mGy-cm. Automated exposure control was utilized for the study. A dose lowering technique was utilized adhering to the principles of ALARA. CONTRAST: Patient received 90ml optiray 320 of IV contrast COMPARISON: 06/10/2025 FINDINGS: Lung bases: Unremarkable. No mass. No consolidation. ABDOMEN: Liver: See below. Gallbladder and bile ducts: There are several 5 mm calcified gallstones in the dependent portion of the nondilated gallbladder. The wall thickness is upper normal. No definite surrounding inflammation, biliary duct dilation, or choledocholithiasis is seen. Pancreas: Unremarkable. No mass. No ductal dilation. Spleen: Unremarkable. No splenomegaly. Adrenals: Unremarkable. No mass. Kidneys and ureters: Unremarkable. No solid mass. No hydronephrosis. Stomach and bowel: The stomach is partially distended with ingested material but nondilated. No mucosal thickening. PELVIS: Appendix: The appendix is normal. Bowel loops are nondilated. No acute inflammatory changes are seen involving the bowel. Bladder: Unremarkable. No mass. Reproductive: Unremarkable as visualized. ABDOMEN and PELVIS: Intraperitoneal space: See below. Bones/joints: No acute fracture. No dislocation. Soft tissues: Unremarkable. Vasculature: There is mild fatty infiltration of the liver and hepatomegaly with the liver measuring 18 cm craniocaudad. There is a 8 mm diameter recanalized paraumbilical vein suggesting portal venous hypertension and cirrhosis. No ascites. No abdominal aortic aneurysm. Lymph nodes: Unremarkable. No enlarged lymph nodes. IMPRESSION: 1. There are several 5 mm calcified gallstones in the dependent portion of the nondilated gallbladder. The wall thickness is upper normal. No definite surrounding inflammation, biliary duct dilation, or choledocholithiasis is seen. If there is clinical concern for acute cholecystitis, consider ultrasound for further characterization. 2. The stomach is partially distended with ingested material but nondilated. Correlate with the timing of the most recent meal to rule out delayed gastric emptying. 3. There is mild fatty infiltration of the liver and hepatomegaly with the liver measuring 18 cm craniocaudad. There is a 8 mm diameter recanalized paraumbilical vein suggesting portal venous hypertension and cirrhosis. No ascites. 4. The appendix is normal. Bowel loops are nondilated. No acute inflammatory changes are seen involving the bowel. Electronically signed by: Anshul Nick MD 07/22/25 22:57 PM Chest X-Ray 07/22/25 20:43 Exam(s): XR CXR 1 VIEW EXAM: XR Chest, 1 View CLINICAL HISTORY: Reason for exam: abd pain. TECHNIQUE: Frontal view of the chest. COMPARISON: 04/26/2025 FINDINGS: Lungs: Unremarkable. No consolidation. Pleural space: Unremarkable. No pneumothorax. Heart: Unremarkable. No cardiomegaly. Mediastinum: Unremarkable. Normal mediastinal contour. Bones/joints: Unremarkable. No acute fracture. IMPRESSION: Normal chest x-ray. Electronically signed by: Anshul Nick MD 07/22/25 22:18 PM Discharge Plan Visit Data Chief Complaint: Vomiting Stated Complaint: VOMITING BLOOD, HEP C ED Provider: Shimon Jacobsen Discharge Problem: Hematemesis, Liver disease, Alcohol abuse, Thrombocytopenia, Coagulopathy, Elevated liver enzymes Patient Disposition: Admitted As Inpatient Condition: Serious Discharge Problem: Hematemesis Qualifiers: Nausea presence: with nausea Qualified Code(s): K92.0 - Hematemesis
[2025-07-22 20:54] LABS: Lipase 165.0 U/L (11-82); Magnesium 1.9 mg/dl (1.7-2.4)
[2025-07-22] MEDS: ONDANSETRON INJ 2 MG/ML 2 ML VIAL IV STA (20:54)
[2025-07-22] MEDS: FAMOTIDINE 20MG IV PUSH 20 MG/5 ML SYR IV STA (20:54)
[2025-07-22] MEDS: SODIUM CHLORIDE 0.9% 1,000 ML IV ONE (20:55)
[2025-07-22] MEDS: OPTIRAY 320 100ml IV ONE (21:43)
[2025-07-22 22:04] LABS: Influenza A virus by PCR Negative (Neg); Influenza B virus by PCR Negative (Neg); SARS CoV2 RNA(COVID-19) Ceph NEGATIVE (Negative)
--- NOTE | 2025-07-22 22:19 | XRay Report ---
Exam(s): XR CXR 1 VIEW EXAM: XR Chest, 1 View CLINICAL HISTORY: Reason for exam: abd pain. TECHNIQUE: Frontal view of the chest. COMPARISON: 04/26/2025 FINDINGS: Lungs: Unremarkable. No consolidation. Pleural space: Unremarkable. No pneumothorax. Heart: Unremarkable. No cardiomegaly. Mediastinum: Unremarkable. Normal mediastinal contour. Bones/joints: Unremarkable. No acute fracture. IMPRESSION: Normal chest x-ray. Electronically signed by: Anshul Nick MD 07/22/25 22:18 PM
--- NOTE | 2025-07-22 22:58 | CT Scan Report ---
Exam(s): CT ABDOMEN + PELVIS With Contrast IV Amt: 90ml optiray 320 EXAM: CT Abdomen and Pelvis With Intravenous Contrast CLINICAL HISTORY: Reason for exam: abd pain, vomiting. TECHNIQUE: Axial computed tomography images of the abdomen and pelvis with intravenous contrast. CTDI is 26.47 mGy and DLP is 1305.24 mGy-cm. Automated exposure control was utilized for the study. A dose lowering technique was utilized adhering to the principles of ALARA. CONTRAST: Patient received 90ml optiray 320 of IV contrast COMPARISON: 06/10/2025 FINDINGS: Lung bases: Unremarkable. No mass. No consolidation. ABDOMEN: Liver: See below. Gallbladder and bile ducts: There are several 5 mm calcified gallstones in the dependent portion of the nondilated gallbladder. The wall thickness is upper normal. No definite surrounding inflammation, biliary duct dilation, or choledocholithiasis is seen. Pancreas: Unremarkable. No mass. No ductal dilation. Spleen: Unremarkable. No splenomegaly. Adrenals: Unremarkable. No mass. Kidneys and ureters: Unremarkable. No solid mass. No hydronephrosis. Stomach and bowel: The stomach is partially distended with ingested material but nondilated. No mucosal thickening. PELVIS: Appendix: The appendix is normal. Bowel loops are nondilated. No acute inflammatory changes are seen involving the bowel. Bladder: Unremarkable. No mass. Reproductive: Unremarkable as visualized. ABDOMEN and PELVIS: Intraperitoneal space: See below. Bones/joints: No acute fracture. No dislocation. Soft tissues: Unremarkable. Vasculature: There is mild fatty infiltration of the liver and hepatomegaly with the liver measuring 18 cm craniocaudad. There is a 8 mm diameter recanalized paraumbilical vein suggesting portal venous hypertension and cirrhosis. No ascites. No abdominal aortic aneurysm. Lymph nodes: Unremarkable. No enlarged lymph nodes. IMPRESSION: 1. There are several 5 mm calcified gallstones in the dependent portion of the nondilated gallbladder. The wall thickness is upper normal. No definite surrounding inflammation, biliary duct dilation, or choledocholithiasis is seen. If there is clinical concern for acute cholecystitis, consider ultrasound for further characterization. 2. The stomach is partially distended with ingested material but nondilated. Correlate with the timing of the most recent meal to rule out delayed gastric emptying. 3. There is mild fatty infiltration of the liver and hepatomegaly with the liver measuring 18 cm craniocaudad. There is a 8 mm diameter recanalized paraumbilical vein suggesting portal venous hypertension and cirrhosis. No ascites. 4. The appendix is normal. Bowel loops are nondilated. No acute inflammatory changes are seen involving the bowel. Electronically signed by: Anshul Nick MD 07/22/25 22:57 PM
[2025-07-22] MEDS ORDERED: PROMETHAZINE 6.25 MG/50.25 ML BAG IV PRN (23:11)
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
[2025-07-23] MEDS: THIAMINE HCL 100 MG in SYRINGE 9 ML IV STA (00:13)
[2025-07-23] MEDS ORDERED: ALBUT/IPRATROP 3MG/0.5MG NEB 3 ML VIAL NEB PRN (00:14)
[2025-07-23 00:17] LABS: Thyroid Stimulating Hormone 1.036 uIu/ml (0.300-4.500)
[2025-07-23] MEDS ORDERED: LORazepam Inj 2 MG in SYRINGE 1 ML IV PRN (00:17)
[2025-07-23] MEDS ORDERED: LORazepam Inj 3 MG in SYRINGE 1.5 ML IV PRN (00:17)
[2025-07-23] MEDS ORDERED: LORazepam Inj 1 MG in SYRINGE 0.5 ML IV PRN (00:17)
[2025-07-23] MEDS ORDERED: cefTRIAXone SODIUM 2,000 MG/50 ML BAG IV STA (00:22)
[2025-07-23] MEDS: cefTRIAXone SODIUM 2,000 MG/50 ML BAG IV SCH (01:34)
[2025-07-23 01:38] LABS: Hematocrit (blood only) 29.6 % (37.0-47.0); Hemoglobin 10.3 g/dL (12.0-16.0)
[2025-07-23] MEDS: LACTATED RINGER'S 1,000 ML IV ONE (02:08)
[2025-07-23] MEDS: NICOTINE 14 MG/24 HR PATCH TD SCH (03:01)
[2025-07-23] MEDS: LACTULOSE SYRUP 20 GM/30 ML UDC PO SCH (03:01)
[2025-07-23] MEDS: LEVOTHYROXINE SODIUM 100 MCG TABLET PO SCH (05:36)
[2025-07-23 06:00] LABS: Hematocrit (blood only) 29.7 % (37.0-47.0); Hemoglobin 10.6 g/dL (12.0-16.0); Immature Granulocytes # (auto) 0.01 K/uL (0.01-0.20); Immature Granulocytes % (auto) 0.2 %; Mean Corpuscular Hemoglobin 37.6 pg (25.0-34.0); Mean Corpuscular Volume 105.3 fL (80.0-100.0); Platelet Count 53 K/uL (130-400); RDW Standard Deviation 61.7 fL (36.4-46.3); Red Blood Count 2.82 M/uL (4.20-5.40); White Blood Count 4.48 K/ul (4.8-10.8)
[2025-07-23 06:19] LABS: Alanine Aminotransferase 68.0 U/L (7-52); Albumin Globulin Ratio 0.8 (0.9-2); Albumin Level 3.0 gm/dl (3.4-5.0); Alkaline Phosphatase 124.0 U/L (34-104); Anion Gap 6.0 (3-11); Bilirubin,Total 1.7 mg/dl (0.2-1.0); Blood Urea Nitrogen 12.0 mg/dl (6-23); Calcium 8.4 mg/dl (8.6-10.3); Carbon Dioxide 28.0 mmol/L (21-32); Chloride 111.0 mmol/L (98-107); Creatinine Clr Calc Pharmacy 122.7 ml/min; Globulin 3.9 gm/dl (2.5-4.0); Glucose 97.0 mg/dl (70-99(Fasting)); Potassium 4.4 mmol/L (3.5-5.1); Sodium 145.0 mmol/L (136-145); Total Protein 6.9 gm/dl (6.0-8.3)
[2025-07-23 06:25] LABS: Amphetamines+Metham, Urine Neg (Neg); MDMA (Ecstacy), Urine Neg (Neg); Marijuana, Urine Neg (Neg)
[2025-07-23 06:29] LABS: INR 1.5 (0.9-1.1); Prothrombin Time 15.1 Seconds (9.0-12.0)
[2025-07-23 07:40] LABS: Hemoglobin A1C 4.5 % (4.5-5.6)
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
[2025-07-23] MEDS: FLUTICASONE PROPIONATE NA SPR 16 GM BTL SCH (09:04)
[2025-07-23] MEDS: FLUTICASONE/VILANTEROL 200/25MCG 14 PUFFS/INHALER INH SCH (09:05)
[2025-07-23] MEDS: MULTIVITAMIN TAB PO SCH (09:06)
[2025-07-23] MEDS: FOLIC ACID 1 MG TAB PO SCH (09:06)
[2025-07-23] MEDS: THIAMINE HCL 100 MG TAB PO SCH (09:06)
[2025-07-23] MEDS: ESCITALOPRAM OXALATE 10 MG TAB PO SCH (09:06)
[2025-07-23] MEDS: PANTOprazole 40 MG/10 ML SYR IV SCH (09:07)
[2025-07-23] MEDS: PROPRANOLOL HCL 20 MG TAB PO SCH (11:06)
[2025-07-23] MEDS: SODIUM CHLORIDE 0.9% 500 ML IV SCH (13:31)
--- NOTE | 2025-07-23 13:39 | Anesthesiology Consultation ---
Date of Service July 23, 2025 Assessment & Plan Chart Review Chart Review: Acceptable Risk for Surgery and Patient NOT seen in Pre Admission Testing Consults Requested none ASA ASA4 Proposed Anesthesia Anesthesia Type: MAC Risk / Benefits Reviewed With: PT / POA / Parent / Guardian, Accepts Plan and Informed Consent Obtained History Surgery Operation Date: 07/23/25 16:55 Proposed Procedures p Esophagogastroduodenoscopy Dr. Brad Salinas MD Height/Weight Height: 5 ft 11 in Weight: 91.9 kg Allergies Allergy/AdvReac Type Severity Reaction Status Date / Time vancomycin Allergy Intermediate Hives Verified 07/23/25 13:15 sulfamethoxazole Allergy Mild YEAST Verified 07/23/25 13:15 [From Bactrim] INFECTION/ITCHING trimethoprim [From Bactrim] Allergy Mild YEAST Verified 07/23/25 13:15 INFECTION/ITCHING Medications Home Medications Medication Instructions Recorded Confirmed Last Taken fluticasone propionate 230 2 puff inhalation BID 03/11/24 07/22/25 07/22/25 mcg-salmeterol 21 mcg/actuation HFA inhaler (Advair HFA) iron,carbonyl 65 mg-vitamin C 125 1 tab PO BID 03/11/24 07/22/25 07/22/25 mg tablet,delayed release (Vitron-C) magnesium chloride 64 mg 64 mg PO BID #60 tabs 02/13/25 07/22/25 07/22/25 (magnesium chloride) tablet,delayed release (Mag 64) albuterol sulfate 90 mcg/actuation 2 puff inhalation Q6H PRN 04/26/25 07/22/25 Unknown aerosol inhaler Shortness Of Breath Or Wheezing escitalopram oxalate 10 mg tablet 10 mg PO QAM 04/26/25 07/22/25 07/22/25 famotidine 20 mg tablet 20 mg PO BID 04/26/25 07/22/25 07/22/25 fluticasone propionate 50 2 spray intranasal DAILY 04/26/25 07/22/25 07/22/25 mcg/actuation nasal spray,suspension losartan 25 mg tablet 25 mg PO QAM 04/26/25 07/22/25 07/22/25 montelukast 10 mg tablet 10 mg PO HS 04/26/25 07/22/25 07/22/25 omeprazole 40 mg capsule,delayed 40 mg PO DAILYBB 04/26/25 07/22/25 07/22/25 release sofosbuvir 400 mg-velpatasvir 100 1 tab PO HS 04/26/25 07/22/25 07/22/25 mg tablet docusate sodium 100 mg capsule 100 mg PO BID 06/10/25 07/22/25 07/22/25 levothyroxine 100 mcg tablet 100 mcg PO DAILYBB 06/10/25 07/22/25 07/22/25 ondansetron 4 mg disintegrating 4 mg PO Q8H PRN NAUSEA/VOMITING 06/10/25 07/22/25 Unknown tablet propranolol 20 mg tablet 20 mg PO BID 06/10/25 07/22/25 07/22/25 Active Medications Generic Name Dose Route Start Last Admin Trade Name Freq PRN Reason Stop Dose Admin Escitalopram Oxalate 10 mg 07/23/25 09:00 07/23/25 09:06 Escitalopram Oxalate 10 Mg Tab PO 08/22/25 08:59 10 mg QAM MARCELA Administration Fluticasone Propionate 2 sprays 07/23/25 09:00 07/23/25 09:04 Fluticasone Propionate Na Spr 16 Gm Btl NA 08/22/25 08:59 2 sprays DAILY MARCELA Administration Fluticasone/Vilanterol 1 puffs 07/23/25 09:00 07/23/25 09:05 Fluticasone/Vilanterol 200/25mcg 14 Puffs/Inhaler INH 08/22/25 08:59 1 puffs DAILY MARCELA Administration Folic Acid 1 mg 07/23/25 09:00 07/23/25 09:06 Folic Acid 1 Mg Tab PO 08/22/25 08:59 1 mg QAM MARCELA Administration Ceftriaxone Sodium 2,000 mg in 50 mls @ 100 mls/hr 07/23/25 01:00 07/23/25 02:04 Rocephin IV 07/27/25 00:59 Infused Q24H MARCELA Infusion Pantoprazole Sodium 40 mg in 10 mls @ 5 mls/min 07/23/25 09:00 07/23/25 09:07 Protonix IV 08/22/25 08:59 5 mls/min BID MARCELA Administration Sodium Chloride 500 mls @ 15 mls/hr 07/23/25 07:30 07/23/25 13:31 Nss IV 07/24/25 07:29 15 mls/hr .Q24H MARCELA Administration Lactulose 20 gm 07/23/25 02:15 07/23/25 09:07 Lactulose Syrup 20 Gm/30 Ml Udc PO 08/22/25 02:14 20 gm TID MARCELA Administration Levothyroxine Sodium 100 mcg 07/23/25 06:30 07/23/25 05:36 Levothyroxine Sodium 100 Mcg Tablet PO 08/22/25 06:29 100 mcg DAILYBB MARCELA Administration Miscellaneous 1 each 07/23/25 08:00 07/23/25 09:04 Sofosbuvir-Velpatasvir 400-100 Mg - Order Awaiting Action N/A 08/22/25 07:59 Not Given QS MARCELA Multivitamins 1 tab 07/23/25 09:00 07/23/25 09:06 Multivitamin Tab PO 08/22/25 08:59 1 tab QAM MARCELA Administration Nicotine 1 patch 07/23/25 00:15 07/23/25 03:01 Nicotine 14 Mg/24 Hr Patch TD 08/22/25 00:14 1 patch HS MARCELA Administration Oxycodone HCl 5 mg 07/22/25 23:11 07/23/25 05:49 Oxycodone Hcl Ir 5 Mg Tab (Immediate Release) PO 08/05/25 23:10 5 mg Q4H PRN Administration Pain Propranolol HCl 20 mg 07/23/25 09:00 07/23/25 11:06 Propranolol Hcl 20 Mg Tab PO 08/22/25 08:59 20 mg BID MARCELA Administration Thiamine HCl 100 mg 07/23/25 09:00 07/23/25 09:06 Thiamine Hcl 100 Mg Tab PO 08/22/25 08:59 100 mg QAM MARCELA Administration NPO Date Last Intake of Fluids: 07/23/25 Time Last Intake of Fluids: 09:00 Last Intake of Fluids Comment: meds Date Last Intake of Solids: 07/22/25 Time Last Intake of Solids: 07:00 Last Intake of Solids Comment: AM Past Medical History Medical History Asthma GERD (gastroesophageal reflux disease) Hepatitis C Hypothyroidism obese Thrombocytopenia Anemia cirrhosis portal HTN Fatty liver ETOH abuse UGI bleed hematemesis elevated LFT's Exercise / Class Metabolic Activity III < 4 Walking/Shop/Light housework Past Family History Family History Other Family history non-contributory Past Anesthesia History No Hx of Anesthesia Complications and No Family Hx of Anesthesia Complications History of PONV No Hx of PONV and No Hx of Motion Sickness Social History Smoking Status: Current every day smoker Smoking cigarettes per day: 1/2 pack Do You Dip or Chew Tobacco: No Hx Alcohol Use: Yes Alcohol type: beer and hard liquor alcohol intake frequency: 3 or more drinks per day Hx Substance Use: Yes substance use type: marijuana Last Used Substance: Days (ago) Physical Exam Vital Signs Last Vital Signs Temp 37.2 C 07/23/25 13:22 Pulse 58 L 07/23/25 13:22 Resp 16 07/23/25 13:22 BP 140/86 07/23/25 13:22 Pulse Ox 96 07/23/25 13:22 O2 Del Method Room Air 07/23/25 13:22 Constitutional + obese; no acute distress ENMT Mouth: + dentition abnormality, + edentulous and + poor dentition Thyromental Distance: < 3.5 Finger Breadths Mallampati Class: II Neck normal visual inspection and trachea midline; neck extension not limited Respiratory normal respiratory effort Auscultation: + diminished lung sounds Cardiovascular Rate/Rhythm: regular rate and regular rhythm Heart Sounds: no murmur Vessels: no carotid bruit Musculoskeletal Spine: normal cervical ROM and no pain with cervical ROM Extremities: extremities normal to inspection; full ROM of extremities Neurologic moves all extremities Motor/Sensory: no sensory deficit Psychiatric Orientation: alert and oriented x 3 Testing Laboratory Results 07/23/25 11:40 07/23/25 05:39 PT 15.1 Seconds (9.0-12.0) H 07/23/25 05:39 INR 1.5 (0.9-1.1) H 07/23/25 05:39 APTT 31 Seconds (21-31) 07/22/25 19:45 Hemoglobin A1c 4.5 % (4.5-5.6) 07/23/25 05:39 Urine Color Yellow 07/22/25 19:52 Urine Appearance Clear (Clear) 07/22/25 19:52 Urine pH 7.0 (4.5-7.5) 07/22/25 19:52 Ur Specific [place] 1.010 (1.000-1.030) 07/22/25 19:52 Urine Protein Negative (Negative) 07/22/25 19:52 Urine Glucose (UA) Negative (Negative) 07/22/25 19:52 Urine Ketones Negative (Negative) 07/22/25 19:52 Urine Nitrite Negative (Negative) 07/22/25 19:52 Ur Leukocyte Esterase Negative (Negative) 07/22/25 19:52 07/23/25 13:17 POC Ur Test NEG Electrocardiogram Date: 04/26/25 Findings: + NSR @ (@ 62 w/ SA;? infer. infarct, age ?) Chest X-Ray Date: 07/22/25 Findings: + NAD
[2025-07-23] MEDS ORDERED: ATROPINE SULFATE 0.1 MG/ML 10ML SYR IV PRN (13:41)
--- NOTE | 2025-07-23 14:08 | Hospitalist Progress Note ---
Date of Service July 23, 2025 Assessment & Plan (1) Hematemesis: (2) Alcohol intoxication delirium: (3) Hepatic encephalopathy: (4) Alcoholic cirrhosis of liver: (5) Hepatitis C: (6) Portal hypertensive gastropathy: (7) Thrombocytopenia: (8) Coagulopathy: (9) Alcohol dependence: Plan Patient 40-year-old female with known alcohol dependence, portal gastropathy, hepatitis C presents with an isolated episode of hematemesis. Continue PPI Reviewed GI consultation, recommending EGD planned for today Continue to monitor for withdrawal Continue ceftriaxone until EGD performed Continue thiamine and folate Hemoglobin stable can follow daily Admission and Anticipated Discharge Date Admission Date: July 22, 2025 Subjective Patient states she really does not recall the events of yesterday. Denies significant withdrawal symptoms at this time Physical Exam Physical Exam: Constitutional: Alert, nontoxic HEENT: Mucous membranes moist. Lungs: Clear to auscultation, decreased, no wheezes rales or rhonchi CV: S1-S2, regular Abdomen: Soft, no distention, mild tenderness, no guarding Extremities: No significant edema Neuro: No focal deficits Psych: Cooperative, normal mood Results & Data Results & Data Vital Signs (Past 12 Hours) Vital Signs Temp Pulse Pulse Resp BP Pulse Ox O2 Del Method 07/23/25 13:22 37.2 C 58 L 16 140/86 96 Room Air 07/23/25 11:15 36.7 C 55 L 20 151/83 H 97 Room Air 07/23/25 07:30 Room Air 07/23/25 07:16 36.5 C 62 20 130/73 90 Room Air 07/23/25 03:00 36.4 C L 65 18 128/80 94 Room Air Diagnostic Findings Reviewed imaging, laboratory and diagnostic studies. Pertinent findings as below. Hemoglobin 11.1, improved from admission Electrolytes stable Creatinine 0.77 LFTs reviewed (1) Hematemesis Nausea presence: with nausea Qualified Code(s): K92.0 - Hematemesis (9) Alcohol dependence Substance use status: other alcohol-induced disorder Qualified Code(s): F10.288 - Alcohol dependence with other alcohol-induced disorder
--- NOTE | 2025-07-23 14:21 | GI REPORT ---
[facility] Patient: LATRICE WILLS : 1985 Sex at : Female Age: 40 Years Procedure: Upper GI endoscopy Date: 07/23/2025 Attending Physician: Guero Salinas MD Referring MD: Referred Self Indications: - Suspected upper gastrointestinal bleeding Medications: - Monitored Anesthesia Care Complications: - No immediate complications. Procedure: - Prior to the procedure, a History and Physical was performed, and patient medications and allergies were reviewed. The patient's tolerance of previous anesthesia was also reviewed. The risks and benefits of the procedure and the sedation options and risks were discussed with the patient. All questions were answered, and informed consent was obtained. [Anticoagulant Agents] [Days Prior to Procedure]. [ASA Grade]. After reviewing the risks and benefits, the patient was deemed in satisfactory condition to undergo the procedure. - The egd scope was introduced through the mouth and advanced to the second part of the duodenum. - The upper GI endoscopy was accomplished without difficulty. - The patient tolerated the procedure well. Findings: - The examined esophagus was normal. - Moderate portal hypertensive gastropathy was found in the entire examined stomach. - Multiple [Extent] erosions with no bleeding and no stigmata of recent bleeding were found in the gastric antrum and in the gastric body. - The examined duodenum was normal. Impression: - Normal esophagus. - Portal hypertensive gastropathy. - Gastric erosions with no bleeding and no stigmata of recent bleeding. - Normal examined duodenum. - No specimens collected. Recommendation: - Resume previous diet. - Patient has a contact number available for emergencies. The signs and symptoms of potential delayed complications were discussed with the patient. Return to normal activities tomorrow. Written discharge instructions were provided to the patient. Procedure Code(s): - 70440, Esophagogastroduodenoscopy, flexible, transoral; diagnostic, including collection of specimen(s) by brushing or washing, when performed (separate procedure) Diagnosis Code(s): - K76.6, Portal hypertension - K31.89, Other diseases of stomach and duodenum - K25.9, Gastric ulcer, unspecified as acute or chronic, without hemorrhage or perforation CPT(R) - 2023 copyright [employer]. All Rights Reserved. The CPT codes, CCI edits and ICD codes generated are intended as suggestions and were generated based on input data. These codes are preliminary and upon teletray operator review may be revised to meet current compliance and payer requirements. The provider is responsible for the final determination of appropriate codes, and modifiers. Guero Salinas MD This document has been electronically signed. Note Initiated:07/23/2025 Note Completed:07/23/2025 2:20 PM [id number]
--- NOTE | 2025-07-23 14:36 | Anesthesiology Progress Note ---
Date of Service July 23, 2025 Anesthesia Post Procedure Vital Signs Vital Signs: Temp Pulse Pulse Pulse Resp BP BP 07/23/25 14:20 60 16 133/76 07/23/25 13:22 37.2 C 58 L 16 140/86 07/23/25 11:15 36.7 C 55 L 20 151/83 H 07/23/25 07:30 07/23/25 07:16 36.5 C 62 20 130/73 07/23/25 03:00 36.4 C L 65 18 128/80 07/23/25 00:48 73 07/23/25 00:45 36.4 C L 67 18 113/68 07/22/25 21:03 64 18 103/53 L 07/22/25 20:30 65 07/22/25 19:24 35.9 C L 63 20 120/78 Pulse Ox O2 Del Method 07/23/25 14:20 95 Room Air 07/23/25 13:22 96 Room Air 07/23/25 11:15 97 Room Air 07/23/25 07:30 Room Air 07/23/25 07:16 90 Room Air 07/23/25 03:00 94 Room Air 07/23/25 00:48 07/23/25 00:45 92 Room Air 07/22/25 21:03 98 Room Air 07/22/25 20:30 07/22/25 19:24 95 Room Air Pain Intensity Chest: Pain Intensity: 10 Transfer of Care Handoff Completed per policy Notes Mental Status: alert / awake / arousable Patient Amnestic to Procedure: Yes Nausea / Vomiting: adequately controlled Pain: adequately controlled Airway Patency, RR, SpO2: stable & adequate BP & HR: stable & adequate Hydration State: stable & adequate Anesthetic Complications: no major complications apparent
[2025-07-23] MEDS: LIDOCAINE 2% 2 ML VIAL/AMP(20MG/ML) INFIL ONE ×2 (15:40)
[2025-07-23] MEDS: PROPOFOL IV EMULSION 10 MG/ML 20 ML VIAL IV ONE (15:41)
[2025-07-23] MEDS: REMOVE NICODERM PATCH SCH (21:28)
[2025-07-23] MEDS: MONTELUKAST SODIUM 10 MG TABLET PO SCH (21:29)
[2025-07-24 06:00] LABS: Hematocrit (blood only) 32.1 % (37.0-47.0); Hemoglobin 11.1 g/dL (12.0-16.0); Mean Corpuscular Hemoglobin 36.0 pg (25.0-34.0); Mean Corpuscular Volume 104.2 fL (80.0-100.0); Platelet Count 44 K/uL (130-400); RDW Standard Deviation 58.9 fL (36.4-46.3); Red Blood Count 3.08 M/uL (4.20-5.40); White Blood Count 3.79 K/ul (4.8-10.8)
[2025-07-24 06:21] LABS: Anion Gap 6.0 (3-11); Blood Urea Nitrogen 9.0 mg/dl (6-23); Calcium 8.7 mg/dl (8.6-10.3); Carbon Dioxide 30.0 mmol/L (21-32); Chloride 103.0 mmol/L (98-107); Creatinine Clr Calc Pharmacy 136.0 ml/min; Glucose 89.0 mg/dl (70-99(Fasting)); Potassium 3.7 mmol/L (3.5-5.1); Sodium 139.0 mmol/L (136-145)
[2025-07-24] MEDS: ACETAMINOPHEN 500 MG TAB PO PRN (06:36)
--- NOTE | 2025-07-24 07:11 | Gastroenterology Progress Note ---
Date of Service July 24, 2025 Assessment & Plan (1) UGIB (upper gastrointestinal bleed): Plan: Secondary to gastric erosions likely related to Naprosyn. Portal gastropathy may have contributed as well. Continue nadolol and PPI. Hemoglobin stable. No further bleeding noted. Patient should follow-up with us as an outpatient. Call if any further issues. Admission and Anticipated Discharge Date Admission Date: July 22, 2025 Subjective Resting comfortably denies any abdominal pain shortness of breath or chest pain. No hematemesis no overt bleeding. Physical Exam Physical Exam: No acute distress Respiratory rate regular Cardiac rhythm regular Abdomen soft nontender Results & Data Results & Data Vital Signs (Past 12 Hours) Vital Signs Temp Pulse Resp BP Pulse Ox O2 Del Method 07/23/25 23:54 36.8 C 57 L 18 157/89 H 93 Room Air 07/23/25 20:22 36.8 C 57 L 18 157/89 H 93 Room Air Laboratory Results Laboratory Results - last 48 hr 07/22/25 07/22/25 07/22/25 19:45 19:52 21:01 WBC 5.68 RBC 3.19 L Hgb 11.6 L Hct 33.5 L MCV 105.0 H MCH 36.4 H MCHC 34.6 RDW Std Deviation 60.1 H RDW Coeff of Fernando 15.9 H Plt Count 61 L MPV 12.4 Immature Gran % (Auto) Neut % (Auto) Lymph % (Auto) [place] % (Auto) Eos % (Auto) Baso % (Auto) Neut # (Auto) Lymph # (Auto) [place] # (Auto) Eos # (Auto) Baso # (Auto) Immature Gran # (Auto) PT 15.1 H INR 1.5 H APTT 31 PTT Ratio 1.1 Sodium 143 Potassium 4.1 Chloride 109 H Carbon Dioxide 29 Anion Gap 5 BUN 15 Creatinine 0.87 Est Cr Clr Drug Dosing 111.0 eGFR 86.86 BUN/Creatinine Ratio 17.2 Glucose 126 H Estimat Average Glucose Hemoglobin A1c Calcium 8.8 Magnesium 1.9 Total Bilirubin 2.1 H AST 191 H ALT 77 H Alkaline Phosphatase 124 H Ammonia Total Protein 7.9 Albumin 3.3 L Globulin 4.6 H Albumin/Globulin Ratio 0.7 L Lipase 165 H TSH 1.036 Urine Color Yellow Urine Appearance Clear Urine pH 7.0 Ur Specific [place] 1.010 Urine Protein Negative Urine Glucose (UA) Negative Urine Ketones Negative Urine Blood Negative Urine Nitrite Negative Urine Bilirubin Negative Urine Urobilinogen Negative Ur Leukocyte Esterase Negative POC Ur Test Urine Comment Urine Opiates Screen Ur Methadone, Qual Urine Fentanyl Screen Urine Barbiturates Ur Phencyclidine (PCP) U Amphetamin/Meth Scrn MDMA (Ecstasy) Screen U Benzodiazepines Scrn Ur Cocaine Metabolite U Marijuana (THC) Screen Ethyl Alcohol mg/dL SARS-CoV-2 (PCR) NEGATIVE Influenza Type A (PCR) Negative Influenza Type B (PCR) Negative RSV (RT-PCR) Negative 07/22/25 07/23/25 07/23/25 22:28 01:05 05:39 WBC 4.48 L RBC 2.82 L Hgb 10.3 L 10.6 L Hct 29.6 L 29.7 L MCV 105.3 H MCH 37.6 H MCHC 35.7 RDW Std Deviation 61.7 H RDW Coeff of Fernando 16.0 H Plt Count 53 L MPV 12.5 H Immature Gran % (Auto) 0.2 Neut % (Auto) 40.2 Lymph % (Auto) 41.7 [place] % (Auto) 15.0 Eos % (Auto) 1.8 Baso % (Auto) 1.1 Neut # (Auto) 1.80 Lymph # (Auto) 1.87 [place] # (Auto) 0.67 H Eos # (Auto) 0.08 Baso # (Auto) 0.05 Immature Gran # (Auto) 0.01 PT 15.1 H INR 1.5 H APTT PTT Ratio Sodium 145 Potassium 4.4 Chloride 111 H Carbon Dioxide 28 Anion Gap 6 BUN 12 Creatinine 0.77 Est Cr Clr Drug Dosing 122.7 eGFR 100.57 BUN/Creatinine Ratio 15.6 Glucose 97 Estimat Average Glucose 82 Hemoglobin A1c 4.5 Calcium 8.4 L Magnesium Total Bilirubin 1.7 H AST 168 H ALT 68 H Alkaline Phosphatase 124 H Ammonia 105.0 H 109.0 H Total Protein 6.9 Albumin 3.0 L Globulin 3.9 Albumin/Globulin Ratio 0.8 L Lipase TSH Urine Color Urine Appearance Urine pH Ur Specific [place] Urine Protein Urine Glucose (UA) Urine Ketones Urine Blood Urine Nitrite Urine Bilirubin Urine Urobilinogen Ur Leukocyte Esterase POC Ur Test Urine Comment Urine Opiates Screen Ur Methadone, Qual Urine Fentanyl Screen Urine Barbiturates Ur Phencyclidine (PCP) U Amphetamin/Meth Scrn MDMA (Ecstasy) Screen U Benzodiazepines Scrn Ur Cocaine Metabolite U Marijuana (THC) Screen Ethyl Alcohol mg/dL 286.3 H SARS-CoV-2 (PCR) Influenza Type A (PCR) Influenza Type B (PCR) RSV (RT-PCR) 07/23/25 07/23/25 07/23/25 11:40 13:17 Unknown WBC RBC Hgb 11.1 L Hct MCV MCH MCHC RDW Std Deviation RDW Coeff of [place] Plt Count MPV Immature Gran % (Auto) Neut % (Auto) Lymph % (Auto) [place] % (Auto) Eos % (Auto) Baso % (Auto) Neut # (Auto) Lymph # (Auto) [place] # (Auto) Eos # (Auto) Baso # (Auto) Immature Gran # (Auto) PT INR APTT PTT Ratio Sodium Potassium Chloride Carbon Dioxide Anion Gap BUN Creatinine Est Cr Clr Drug Dosing eGFR BUN/Creatinine Ratio Glucose Estimat Average Glucose Hemoglobin A1c Calcium Magnesium Total Bilirubin AST ALT Alkaline Phosphatase Ammonia Total Protein Albumin Globulin Albumin/Globulin Ratio Lipase TSH Urine Color Urine Appearance Urine pH Ur Specific [place] Urine Protein Urine Glucose (UA) Urine Ketones Urine Blood Urine Nitrite Urine Bilirubin Urine Urobilinogen Ur Leukocyte Esterase POC Ur Test NEG Urine Comment Urine Opiates Screen Neg Ur Methadone, Qual Neg Urine Fentanyl Screen Neg Urine Barbiturates Neg Ur Phencyclidine (PCP) Neg U Amphetamin/Meth Scrn Neg MDMA (Ecstasy) Screen Neg U Benzodiazepines Scrn Neg Ur Cocaine Metabolite Neg U Marijuana (THC) Screen Neg Ethyl Alcohol mg/dL SARS-CoV-2 (PCR) Influenza Type A (PCR) Influenza Type B (PCR) RSV (RT-PCR) 07/24/25 05:48 WBC 3.79 L RBC 3.08 L Hgb 11.1 L Hct 32.1 L MCV 104.2 H MCH 36.0 H MCHC 34.6 RDW Std Deviation 58.9 H RDW Coeff of [place] 15.3 H Plt Count 44 L MPV 12.2 Immature Gran % (Auto) Neut % (Auto) Lymph % (Auto) [place] % (Auto) Eos % (Auto) Baso % (Auto) Neut # (Auto) Lymph # (Auto) [place] # (Auto) Eos # (Auto) Baso # (Auto) Immature Gran # (Auto) PT INR APTT PTT Ratio Sodium 139 Potassium 3.7 Chloride 103 Carbon Dioxide 30 Anion Gap 6 BUN 9 Creatinine 0.68 Est Cr Clr Drug Dosing 136.0 eGFR 113.54 BUN/Creatinine Ratio 13.2 Glucose 89 Estimat Average Glucose Hemoglobin A1c Calcium 8.7 Magnesium Total Bilirubin AST ALT Alkaline Phosphatase Ammonia 52.0 Total Protein Albumin Globulin Albumin/Globulin Ratio Lipase TSH Urine Color Urine Appearance Urine pH Ur Specific [place] Urine Protein Urine Glucose (UA) Urine Ketones Urine Blood Urine Nitrite Urine Bilirubin Urine Urobilinogen Ur Leukocyte Esterase POC Ur Test Urine Comment Urine Opiates Screen Ur Methadone, Qual Urine Fentanyl Screen Urine Barbiturates Ur Phencyclidine (PCP) U Amphetamin/Meth Scrn MDMA (Ecstasy) Screen U Benzodiazepines Scrn Ur Cocaine Metabolite U Marijuana (THC) Screen Ethyl Alcohol mg/dL SARS-CoV-2 (PCR) Influenza Type A (PCR) Influenza Type B (PCR) RSV (RT-PCR) PG Care Time/CCT Total # of Minutes Spent Total Time Spent with Patient: Total time spent is greater than 50% in coordination of care (as documented) at patient's floor/unit and/or counseling patient: Coding Level of Care Code 85356 SUB INP/OBS CARE MIN Diagnoses UGIB (upper gastrointestinal bleed) K92.2
[2025-07-24 08:42] VITALS: BP 146/88; RESP 16; TEMP 98.1; O2SAT 96
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
[2025-07-24 11:11] VITALS: PULSE 55
== END 2025-07-24 11:42 | disposition home or self-care (01) | DRG 378 ==
LOC: ED 19:19 → 4W 23:36